=== PATIENT | male | born 1970 | race Caucasian/White ===

== ENCOUNTER 2016-07-26 16:34 | Inpatient (IN) | payer MEDICAID ==
[2016-07-26] MEDS: HYDROmorphONE/DILAUDID 1 MG/ML SYR IVP PRN (17:37)
[2016-07-26] MEDS ORDERED: ONDANSETRON DISINTEGRATING 4 MG TAB PO PRN (17:56)
[2016-07-26] MEDS ORDERED: ONDANSETRON 4 MG/2 ML VIAL IVP PRN (17:56)
[2016-07-26] MEDS ORDERED: NALOXONE HCL 0.4 MG/ML INJ IVP PRN (17:56)
[2016-07-26] MEDS: HYDROmorphONE/DILAUDID 6 MG/30 ML PCA IV PRN (18:00)
[2016-07-26] MEDS: NS 1,000 ML IV SCH (18:21)
[2016-07-26] MEDS: ERTAPENEM 1 GM in NS 100 ML IV SCH (18:22)
--- NOTE | 2016-07-26 18:49 | GHP ---
[f rep st] HISTORY AND PHYSICAL DATE OF ADMISSION: 07/26/2016 HISTORY OF PRESENT ILLNESS: The patient is a pleasant 45-year-old gentleman with history of stage I V metastatic rectal cancer, who presents from oncology clinic with rectal pain and fever. He was fe eling well until yesterday. His last chemotherapy was about 3 weeks ago. He developed pain and the n today he has had fever, chills. He said he has never felt pain like this before. The tissue arou nd his rectum and into his right medial buttock has become indurated and very tender. He has had fe josesito and he is diaphoretic. He has had no bloody ostomy drainage. He has had no blood coming out of his bottom. He has not put anything in his rectum. He does have a diverting ostomy. Patient had an admission here in the fall for alcohol withdrawal, but has been sober for a number of what sounds like weeks to months. REVIEW OF SYSTEMS: Complete 10-point review of systems conducted and negative except as noted in th e HPI. PAST MEDICAL HISTORY: 1. Alcohol abuse. Currently sober. 2. Stage IV colon cancer with metastatic disease and diverting ileostomy. 3. History of GI bleed. 4. BPH. 5. Neuropathy. 6. He has a history of liver embolization in October 2005, and November 2005, as well as port placement. FAMILY HISTORY: Mother has kidney disease. SOCIAL HISTORY: He lives with a roommate. He is originally from [facility]. He smokes ItsOn. Alcohol as in the HPI. ALLERGIES: No known drug allergies. HOME MEDICATIONS: 1. Morphine 15 b.i.d. 2. Oxycodone 4 times daily. 3. Protonix. 4. Tamsulosin. ALLERGIES: No known drug allergies. PHYSICAL EXAMINATION: VITAL SIGNS: Temp 36.6, blood pressure 112/78, pulse 105, breathing 20 times a minute, 96% on room air. GENERAL: Uncomfortable, diaphoretic, but no acute distress. HEENT: S clerae anicteric. Oropharynx clear. Mucous membranes are dry. NECK: Supple without lymphadenopat hy or JVD. LUNGS: Clear to auscultation bilaterally. HEART: S1, S2. Borderline tachycardic. AB DOMEN: Soft, nontender, nondistended. There is no rebound or guarding. There is mucus on the osto my. His medial right glute or buttock is indurated without fluctuance. There is no rectal discharg e, although when Dr. Busch examined him, some serosanguineous fluid left his anus. EXTREMITIES: He has no lower extremity edema. Calves are nontender. SKIN: Without rash. NEUROLOGIC: Nonfocal . LABORATORY DATA: White count 12.9 with a left shift. Hematocrit is 40, platelets are 130,000. Rec ent coags show an INR of 1.16. Sodium 128, potassium 3.0, chloride 92, bicarb 21, BUN 10, creatinin e 0.7. These are slightly greater than his baseline. Bilirubin is 2.5. AST 68, ALT 58, alkaline p hosphatase 182, CEA is elevated at 344. I have discussed the case with Drs. Jed Arora and Annette Busch. I reviewed and summarized previous hospital records in the HPI. ASSESSMENT/PLAN: This is a 45-year-old gentle with metastatic rectal cancer, here with likely perir ectal abscess. 1. Likely perirectal abscess. The patient will go to CAT scan and likely to surgery thereafter. H e has been started on ertapenem. 2. Sepsis. The patient has leukocytosis as source of infection and tachycardia. I will start him on aggressive IV fluid resuscitation. 3. Alcohol use. This appears to be in remission at this time. 4. Prophylaxis. Pharmacologic prophylaxis indicated, but I have written to start it on July 28. 5. Pain. 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 We will continue h is medications. They have been reconciled. 6. Diet. He is currently n.p.o. DISPOSITION: Inpatient status. /[id number]/MODL
--- NOTE | 2016-07-26 19:19 | GCON ---
[f rep st] CONSULTATION ONCOLOGY CONSULTATION DATE OF CONSULTATION: 07/26/2016 HISTORY OF PRESENT ILLNESS: The patient is a 45-year-old gentleman who is followed by my partner, Rosalee Grider. He was diagnosed with metastatic rectal carcinoma in March of 2015. He present ed with liver metastasis. He was treated initially with FOLFOX-Avastin with a good partial response. His treatment was consol idated with Yttrium-90 Theraspheres. This was followed with radiation to his primary rectal mass gi domenic with concurrent gemcitabine. He completed this treatment in November of 2015. More recently, the patient has been receiving treatment with FOLFIRI-bevacizumab. The patient has chronic pain around both buttocks. He has no known fistula. He takes MS Contin 30 mg every 8 hours for this pain. He presented to the clinic today with an acute worsening of his pain over the past 24 hours. He den ies any perirectal discharge. He denies any shaking chill or fever at home. He denies abdominal pa in. He was admitted from the clinic for further management. PAST MEDICAL HISTORY: Metastatic rectal carcinoma, as outlined above, otherwise unremarkable. PAST SURGICAL HISTORY: History of diverting colostomy. SOCIAL HISTORY: The patient is single. He lives locally. He is currently unemployed. He admits t o history of heavy alcohol use in the past. REVIEW OF SYSTEMS: As above. PHYSICAL EXAMINATION: GENERAL: The patient is in [id number]-vl-[id number] distress due to perirectal pain. HEENT: Pupils equal. Sclerae nonicteric. Conjunctivae normal. ABDOMEN: Soft, nontender, nondi stended. RECTAL: Reveals notable induration in the left buttock. There is a firmness in the mid m edial left buttock, which is tender, per the patient. The patient appears to have a small sinus tra ct in the inferior anal area from which serous fluid drains. EXTREMITIES: No swelling or edema. NEUROLOGIC: Patient alert and oriented. LABORATORY DATA: A CBC done in the office today reveals a white count of 12,900, hemoglobin 13.8, h ematocrit of 40.4, platelet count of 130,000, with an absolute neutrophil count of 11,310. IMPRESSION: 1. Metastatic rectal carcinoma. 2. Acute perirectal pain, suspect left gluteal abscess. 3. History of alcohol abuse. The patient is a 45-year-old gentleman, who was admitted with acute perirectal pain. On exam, he montoya s findings suggestive of a possible gluteal abscess. I have started him on Dilaudid 1 mg IV q.4 hours for pain control. He is in a significant amount of pain. I have discussed his case with General Surgery, (Dr. Jed Arora), as well as Dr. Clint armas of the hospitalist service. The patient will be placed on Invanz. I have ordered a CT abdomen and pelvis to further evaluate fo r abscess. If one is present, it will be drained surgically. A remote possibility would be progression of his known rectal cancer; however, the patient had a res taging CT scan done on July 05, which did not demonstrate any significant progression, so I think this is unlikely. I will notify my partner, Dr. Grider, of his admission. Dr. Grider is covering the weekend. The plan was discussed with nursing, the patient, and Dr. Putnam of the hospitalist service. Our service will continue to follow him during this hospital stay. Total time for today's visit was approximately 40 minutes. /[id number]/MODL
[2016-07-26] MEDS ORDERED: IOPAMIDOL (ISOVUE-300) 100 ML BTL IV ONE ×2 (19:59→20:09)
[2016-07-26] MEDS: morphINE SR 15 MG TAB PO SCH (22:45)
--- NOTE | 2016-07-26 23:40 | GCON ---
[f rep st] CONSULTATION DATE OF CONSULTATION: 07/26/2016 CHIEF COMPLAINT: Perianal and buttock pain. HISTORY OF PRESENT ILLNESS: This is a 45-year-old male with a history of metastatic rectal carcinom a followed outpatient by Oncology who presents here with perirectal pain and fever. He was feeling well until yesterday when he started to develop these symptoms. The pain developed initially which has progressed to fever and chills. The tissue around his rectum and his right medial buttock has b ecome indurated and extremely tender. He denies having drainage from this area. He has been seen i n the past, most recently in April, by my colleague, Dr. Roberson, where he underwent diverting colo stomy at that time for his cancer. PAST MEDICAL HISTORY: Alcohol abuse, stage IV rectal cancer, history of GI bleed, BPH, neuropathy, liver embolization in 2005 for metastatic lesions. SURGICAL HISTORY: Diverting end colostomy performed in April of this year. ALLERGIES: None. CURRENT MEDICATIONS: Morphine, oxycodone, Protonix, and tamsulosin. PHYSICAL EXAM: VITAL SIGNS: Temperature 36.6, blood pressure 115/73, heart rate 85, he is 96% on r oom air. GENERAL: He is alert and oriented, in mild distress. CV: He has a regular rate and rhyt hm. LUNGS: Clear. ABDOMEN: Soft. Ostomy beefy red with stool in appliance. Incision well heale d. RECTAL: Right buttock has tense induration. No peter drainage. No abscess appreciated. EXTRE MITIES: Warm. LABS: None. IMAGING: CT scan of his abdomen and pelvis shows fluid within the pelvis both intra and extra-abdom inally, tracking above and around the levators into that right buttock tissue. ASSESSMENT/PLAN: A 45-year-old male with intra and extra-abdominal abscess, clearly much more invol luly than a simple perirectal. I do agree with starting broad-spectrum IV antibiotics at this time a nd would keep the patient n.p.o., would obtain some baseline labs as well as hydrate. Will have a d iscussion as to how to properly treat this, as the patient may require some kind of celiotomy to in that intraabdominal portion versus interventionally placed drain. At any rate, will require, mor e than likely, some surgery but need to formulate a game plan prior to doing so, as the abscess is m uch more extensive than initially thought. Findings were discussed with the patient. We will plan to discuss and come up with operative plan as soon as possible. /[id number]/MODL
[2016-07-27] MEDS: NS 1,000 ML IV SCH ×3 (00:28→10:04)
[2016-07-27 05:15] LABS: ADD DIFF? YES; ADD MORPH? NO; ATYPICAL LYMPHOCYTE FLAG 0 (0-99); FRAGMENT RBC FLAG 20 (0-99); HEMATOCRIT 35.1 % (40.0-51.0); HEMOGLOBIN 12.1 g/dL (13.7-17.5); LIPEMIA HEMOLYSIS FLAG 90 (0-99); MEAN CELL HEMOGLOBIN 29.7 pg (27.9-34.1); MEAN CELL HEMOGLOBIN CONCENTR. 34.5 g/dL (32.4-36.7); MEAN PLATELET VOLUME 10.2 fL (8.7-11.7); PLATELET CLUMPS FLAG 10 (0-99); PLATELET COUNT 62 10^3/uL (150-400); RED BLOOD CELL COUNT 4.08 10^6/uL (4.40-6.38); RED CELL DISTRIBUTION WIDTH 18.2 % (11.5-15.2)
[2016-07-27 05:27] LABS: INR 1.74 (0.83-1.16); PROTIME(PATIENT) 20.4 SEC (12.0-15.0)
[2016-07-27 05:28] LABS: APTT 39.6 SEC (23.0-38.0)
[2016-07-27 05:33] LABS: ADD SCAN? NO; LEFT SHIFT FLG 270 (0-99)
[2016-07-27 05:39] LABS: CARBON DIOXIDE 23 mEq/l (22-31); CREATININE 0.5 mg/dL (0.7-1.3); GLOMERULAR FILTRATION RATE > 60; GLUCOSE 97 mg/dL (70-100); SODIUM 134 mEq/L (134-144)
[2016-07-27 05:40] LABS: POTASSIUM 3.2 mEq/L (3.5-5.2)
[2016-07-27 05:53] LABS: ANION GAP 13 mEq/L (8-16); CHLORIDE 98 mEq/L (97-110)
[2016-07-27 07:16] LABS: HYPERSEGMENTED NEUTROPHILS 1+; KERATOCYTES 1+; PLATELET ESTIMATE DECREASED (ADEQ); POLYCHROMASIA 1+
[2016-07-27] MEDS: PANTOPRAZOLE SODIUM 40 MG TAB PO SCH (08:49)
[2016-07-27] MEDS: morphINE SR 15 MG TAB PO SCH ×3 (08:49→21:42)
[2016-07-27] MEDS: ERTAPENEM 1 GM in NS 100 ML IV SCH (08:54)
[2016-07-27] MEDS: TAMSULOSIN HCL 0.4 MG CAP PO SCH (08:58)
[2016-07-27] MEDS ORDERED: DEXAMETHASONE 4 MG TAB PO SCH (09:00)
[2016-07-27] MEDS: HYDROmorphONE/DILAUDID 6 MG/30 ML PCA IV PRN ×2 (09:48→18:38)
--- NOTE | 2016-07-27 09:54 | HOSPPROG ---
Hospitalist Progress Note Assessment/Plan: 45 yo M w metastatic liver CA here w R perirectal abscess w possible perforation vs gas forming organisms perirectal abscess: on ertapenem needs operative vs IR drainage has been on angiogenesis inhibitor so resection w primary anastamosis has risk of breakdown d/w dr pantoja sepsis: septic physiology improving urinary retention: likely 2/2 anticholinergic effect of opiates banegas colon CA: metastatic last chemo [address] suggests he is responding to treatment alcoholism: sober X weeks- months per him follow proph: high risk goal is to start LMWH 07/28 Subjective: case d/w edgar melgoza and mariya. CT images reviewed/interpreted by nm- free air next on R side of rectum w thickened tissue. CT from 07/05 may have shown some extraluminal air in same space R of rectum Objective: Vital Signs Temp Pulse Resp BP Pulse Ox 37.1 C 80 15 109/71 94 07/27/16 08:00 07/27/16 08:00 07/27/16 08:00 07/27/16 08:00 07/27/16 08:00 Laboratory Results 07/27/16 04:35 07/27/16 04:35 07/26/16 07/27/16 07/28/16 05:59 05:59 05:59 Intake Total 1802.2 Output Total 550 Balance 1252.2 PT 20.4 SEC (12.0-15.0) H 07/27/16 04:35 INR 1.74 (0.83-1.16) H 07/27/16 04:35 - Physical Exam Constitutional: appears nourished, No no apparent distress Eyes: PERRL, anicteric sclera Ears, Nose, Mouth, Throat: moist mucous membranes, hearing normal Cardiovascular: regular rate and rhythym, no murmur, rub, or gallop Respiratory: no respiratory distress, no rales or rhonchi Gastrointestinal: normoactive bowel sounds, soft, non-tender abdomen, other ( deferring rectal exam at this time- will wait until surgeon present) Genitourinary: banegas in urethra, No no bladder fullness Skin: warm, normal color Musculoskeletal: full muscle strength, no muscle tenderness Neurologic: AAOx3 ICD10 Worksheet Patient Problems: Problems Problem Status Onset Abdominal pain Acute Acute hyperactive alcohol withdrawal delirium Acute Alcohol dependence Acute Alcohol withdrawal Acute Colorectal cancer Acute Colorectal cancer, stage IV Acute Hematochezia Acute
--- NOTE | 2016-07-27 10:05 | SOAPPROG ---
SOAP Progress Note Assessment/Plan: Assessment: 1. Perirectal abscess with gas formation secondary to perforation rectal cancer in situ. 2. Stage IV rectal cancer with liver mets since 03/2015 3. Urinary retention S: He has a metastatic rectal cancer and has been on FOLFIRI plus Avastin. He has buttock pain and a CT that reveals gas extending to the skin from a right perirectal abscess. He has been on dex 4 mg daily for asthnia. Currently he is in a lot of pain. He is on the schedule for surgery later today for fasciatomy and drainage. He has urinary retention. His last dose of chemo was on 07/15. He currently has a WBC of 9 and platelets of 60K. He is still a full code. He knows that he has incurable rectal cancer. Plan: surgery plus ertapenum. Culture. 07/27/16 10:00 07/27/16 10:06 07/27/16 10:08 07/27/16 10:09 Subjective: [place] is a 45 yo with metastatic rectal cancer here with right buttock pain. He has a large abscess. Objective: Vital Signs Temp Pulse Resp BP Pulse Ox 37.1 C 80 15 109/71 94 07/27/16 08:00 07/27/16 08:00 07/27/16 08:00 07/27/16 08:00 07/27/16 08:00 Laboratory Results 07/27/16 04:35 07/27/16 04:35 07/26/16 07/27/16 07/28/16 05:59 05:59 05:59 Intake Total 1802.2 Output Total 550 Balance 1252.2 PT 20.4 SEC (12.0-15.0) H 07/27/16 04:35 INR 1.74 (0.83-1.16) H 07/27/16 04:35 Alert and oriented Lungs clear CVS neg Abd: large bladder Ext: no edema. ICD10 Worksheet Patient Problems: Problems Problem Status Onset Abdominal pain Acute Acute hyperactive alcohol withdrawal delirium Acute Alcohol dependence Acute Alcohol withdrawal Acute Colorectal cancer Acute Colorectal cancer, stage IV Acute Hematochezia Acute
[2016-07-27] MEDS: HYDROmorphONE/DILAUDID 1 MG/ML SYR IVP PRN (10:36)
[2016-07-27] MEDS ORDERED: BUPIVACAINE/EPI 0.5% 30 ML SDV ONE (12:54)
[2016-07-27] MEDS ORDERED: MIDAZOLAM 2 MG/2 ML VIAL ONE (13:38)
[2016-07-27] MEDS ORDERED: fentaNYL 250 MCG/5 ML INJ ONE (13:50)
[2016-07-27] MEDS ORDERED: PROPOFOL/EMULSION 500 MG/50 ML BOTTLE IV ONE (13:53)
[2016-07-27] MEDS ORDERED: ONDANSETRON 4 MG/2 ML VIAL ONE (14:32)
[2016-07-27] MEDS ORDERED: ROCURONIUM 50 MG/5 ML VIAL ONE (14:32)
[2016-07-27] MEDS ORDERED: METOCLOPRAMIDE 10 MG/2 ML VIAL ONE (14:33)
[2016-07-27] MEDS ORDERED: GLYCOPYRROLATE 0.2 MG/1 ML VIAL ONE (14:33)
[2016-07-27] MEDS ORDERED: SUGAMMADEX SODIUM 200 MG/2 ML VIAL IVP ONE (14:35)
[2016-07-27] MEDS ORDERED: fentaNYL 100 MCG/2 ML INJ ONE (14:52)
--- NOTE | 2016-07-27 15:08 | SOAPPROG ---
SOAP Progress Note Assessment/Plan: Assessment: 45 MALE WITH COLOSTOMY FOR RECTAL CA, METASTATIC TO LIVER NOW WITH SEVERE PERIRECTAL PAIN AND CT WITH PERFORATION AND AIR IN SOFT TISSUES AFEBRILE/ SOME RECTAL DRAINAGE TOO PAINFUL FOR RECTAL EXAM RISKS AND OPTIONS FULLY DISCUSSED Plan:I & D IN OR 07/27/16 15:05 Objective: Vital Signs Temp Pulse Resp BP Pulse Ox 36.5 C 63 16 117/69 98 07/27/16 14:59 07/27/16 14:59 07/27/16 14:59 07/27/16 14:59 07/27/16 14:59 Laboratory Results 07/27/16 04:35 07/27/16 04:35 07/26/16 07/27/16 07/28/16 05:59 05:59 05:59 Intake Total 1802.2 800 Output Total 550 1560 Balance 1252.2 -760 PT 20.4 SEC (12.0-15.0) H 07/27/16 04:35 INR 1.74 (0.83-1.16) H 07/27/16 04:35 ICD10 Worksheet Patient Problems: Problems Problem Status Onset Abdominal pain Acute Acute hyperactive alcohol withdrawal delirium Acute Alcohol dependence Acute Alcohol withdrawal Acute Colorectal cancer Acute Colorectal cancer, stage IV Acute Hematochezia Acute
--- NOTE | 2016-07-27 15:15 | POSTOPPROG ---
Post Op Note Date of Operation: 07/27/16 Surgeon: Mathieu Wood Anesthesiologist: GERTRUDE Anesthesia: GET(General Endotracheal) Pre-op Diagnosis: PERFORATED RECTAL CANCER Post-op Diagnosis: SAME Indication: ABSCESS Procedure: EUA/ I&D PERIRECTAL ABSCESS AND DEBRIDEMENT Findings: COMOLETE NECROTIC RT LATERAL RECTAL WALL WITH ASSOCIATED PERIRECTAL ABSCESS Inf/Abcess present in the surg proc area at time of surgery?: Yes Depth: Organ Space EBL: Minimal Complications: 0 Drains: [place] Specimen(s): CULTURE
[2016-07-27] MEDS ORDERED: ONDANSETRON 4 MG/2 ML VIAL IVP PRN (15:17)
[2016-07-27] MEDS ORDERED: KETOROLAC 30 MG/1 ML SDV IVP ONE (15:17)
[2016-07-27] MEDS: D5W 1/2 NS W/ 20 KCl/L 1,000 ML IV SCH (16:40)
[2016-07-27] MEDS: KETOROLAC 15 MG/1 ML SDV IVP SCH ×2 (17:31→23:43)
[2016-07-28] MEDS: KETOROLAC 15 MG/1 ML SDV IVP SCH ×4 (04:50→23:49)
[2016-07-28 05:10] LABS: ADD DIFF? YES; ADD MORPH? NO; ATYPICAL LYMPHOCYTE FLAG 0 (0-99); FRAGMENT RBC FLAG 0 (0-99); HEMATOCRIT 29.8 % (40.0-51.0); LIPEMIA HEMOLYSIS FLAG 80 (0-99); MEAN CELL HEMOGLOBIN 29.7 pg (27.9-34.1); MEAN CELL HEMOGLOBIN CONCENTR. 33.6 g/dL (32.4-36.7); MEAN CELL VOLUME 88.4 fL (81.5-99.8); MEAN PLATELET VOLUME 9.4 fL (8.7-11.7); PLATELET CLUMPS FLAG 0 (0-99); PLATELET COUNT 57 10^3/uL (150-400); RED BLOOD CELL COUNT 3.37 10^6/uL (4.40-6.38); RED CELL DISTRIBUTION WIDTH 17.7 % (11.5-15.2)
[2016-07-28 05:25] LABS: ANION GAP 6 mEq/L (8-16); CALCIUM 7.5 mg/dL (8.5-10.4); CARBON DIOXIDE 28 mEq/l (22-31); CHLORIDE 105 mEq/L (97-110); CREATININE 0.5 mg/dL (0.7-1.3); GLOMERULAR FILTRATION RATE > 60; GLUCOSE 132 mg/dL (70-100); POTASSIUM 3.1 mEq/L (3.5-5.2); SODIUM 139 mEq/L (134-144)
[2016-07-28 05:31] LABS: ADD SCAN? NO; LEFT SHIFT FLG 290 (0-99)
[2016-07-28 07:44] LABS: PLATELET ESTIMATE DECREASED (ADEQ); POLYCHROMASIA 1+
--- NOTE | 2016-07-28 08:29 | SOAPPROG ---
SOAP Progress Note Assessment/Plan: Assessment: 1. Perirectal abscess with gas formation secondary to perforation rectal cancer. 2. Stage IV rectal cancer with liver mets since 03/2015 3. Urinary retention S: He has a metastatic rectal cancer and has been on FOLFIRI plus Avastin. He has buttock pain and a CT that reveals gas extending to the skin from a right perirectal abscess. He has been on dex 4 mg daily for asthenia. I will start to wean that down. He had an I&D. He has "complete breakdown of the right lateral wall. His pain is dramatically better. The hope now is that there is adequate drainage. The next steps are IV Abx and wound care. The chcf solution is difficult but could include an APR. He had urinary retention and has a banegas in place. He looks better today. His last dose of chemo was on 07/15. He currently has a WBC of 9 and platelets of 60K. He is still a full code. He knows that he has incurable rectal cancer. Plan: surgery plus ertapenum. Cultures pending 07/27/16 10:00 07/27/16 10:06 07/27/16 10:08 07/27/16 10:09 07/28/16 08:25 07/28/16 08:32 Subjective: [place] feels a lot better today after I&D. Pain is controlled. Temp is normal. Objective: Vital Signs Temp Pulse Resp BP Pulse Ox 36.4 C 52 L 15 106/71 96 07/27/16 20:00 07/28/16 06:09 07/28/16 06:09 07/28/16 06:09 07/28/16 06:09 Microbiology 07/27/16 14:22 Gram Stain - Final Buttock - Aspirate 07/27/16 14:22 Gram Stain - Final Buttock - Eswab Laboratory Results 07/28/16 04:55 07/28/16 04:55 07/27/16 07/28/16 07/29/16 05:59 05:59 05:59 Intake Total 1802.2 2308.1 Output Total 550 3210 Balance 1252.2 -901.9 PT 20.4 SEC (12.0-15.0) H 07/27/16 04:35 INR 1.74 (0.83-1.16) H 07/27/16 04:35 Wound looks OK. Alert Neck neg Lungs clear CVS neg Abd colostomy LUQ ext no DVT ICD10 Worksheet Patient Problems: Problems Problem Status Onset Abdominal pain Acute Acute hyperactive alcohol withdrawal delirium Acute Alcohol dependence Acute Alcohol withdrawal Acute Colorectal cancer Acute Colorectal cancer, stage IV Acute Hematochezia Acute
[2016-07-28] MEDS: HYDROmorphONE/DILAUDID 6 MG/30 ML PCA IV PRN ×2 (08:45→19:56)
[2016-07-28] MEDS: ERTAPENEM 1 GM in NS 100 ML IV SCH (08:47)
[2016-07-28] MEDS: morphINE SR 15 MG TAB PO SCH ×3 (08:47→21:08)
[2016-07-28] MEDS: TAMSULOSIN HCL 0.4 MG CAP PO SCH (08:47)
[2016-07-28] MEDS: DEXAMETHASONE 2 MG TAB PO SCH (08:47)
[2016-07-28] MEDS: PANTOPRAZOLE SODIUM 40 MG TAB PO SCH (08:47)
[2016-07-28] MEDS: ENOXAPARIN 40 MG/0.4 ML SYR SC SCH ×2 (08:48→08:51)
[2016-07-28] MEDS ORDERED: PROTOCOL POTASSIUM 1 DOSE MISC PRN (10:59)
--- NOTE | 2016-07-28 11:05 | HOSPPROG ---
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 pain improved but still requiring RECEPTIONIST/TELEPHONE OPERATOR. eating Objective: Vital Signs Temp Pulse Resp BP Pulse Ox 37.1 C 76 17 102/67 97 07/28/16 10:08 07/28/16 10:08 07/28/16 10:08 07/28/16 10:08 07/28/16 10:08 Microbiology 07/27/16 14:22 Gram Stain - Final Buttock - Aspirate 07/27/16 14:22 Gram Stain - Final Buttock - Eswab Laboratory Results 07/28/16 04:55 07/28/16 04:55 07/27/16 07/28/16 07/29/16 05:59 05:59 05:59 Intake Total 1802.2 2308.1 Output Total 550 3210 Balance 1252.2 -901.9 PT 20.4 SEC (12.0-15.0) H 07/27/16 04:35 INR 1.74 (0.83-1.16) H 07/27/16 04:35 - Physical Exam Constitutional: no apparent distress, appears nourished Eyes: PERRL, anicteric sclera Ears, Nose, Mouth, Throat: moist mucous membranes, hearing normal Cardiovascular: regular rate and rhythym, no murmur, rub, or gallop, No systolic murmur, No tachycardia Respiratory: no respiratory distress, no rales or rhonchi Gastrointestinal: normoactive bowel sounds, soft, non-tender abdomen Genitourinary: banegas in urethra Skin: warm, normal color Musculoskeletal: full muscle strength, no muscle tenderness Neurologic: AAOx3 ICD10 Worksheet Patient Problems: Problems Problem Status Onset Abdominal pain Acute Acute hyperactive alcohol withdrawal delirium Acute Alcohol dependence Acute Alcohol withdrawal Acute Colorectal cancer Acute Colorectal cancer, stage IV Acute Hematochezia Acute
[2016-07-28] MEDS: POLYETHYLENE GLYCOL 3350 17 GM PKT PO SCH (11:52)
[2016-07-28] MEDS ORDERED: POTASSIUM CL 10 MEQ TAB PO ONE ×2 (12:21→20:47)
--- NOTE | 2016-07-28 12:22 | SOAPPROG ---
SOAP Progress Note Assessment/Plan: Assessment: 45 MALE WITH COLOSTOMY FOR RECTAL CA, METASTATIC TO LIVER NOW WITH SEVERE PERIRECTAL PAIN AND CT WITH PERFORATION AND AIR IN SOFT TISSUES AFEBRILE/ SOME RECTAL DRAINAGE TOO PAINFUL FOR RECTAL EXAM RISKS AND OPTIONS FULLY DISCUSSED Plan:I & D IN OR 07/27/16 15:05 07/28/16 12:20 MUCH IMPROVED/ AFEBRILE/ MODERATE DRAINAGE/ MINIMAL PAIN/ WILL EVENTUALLY NEED APR Objective: Vital Signs Temp Pulse Resp BP Pulse Ox 37.1 C 59 L 17 114/72 94 07/28/16 11:56 07/28/16 11:56 07/28/16 11:56 07/28/16 11:56 07/28/16 11:56 Microbiology 07/27/16 14:22 Gram Stain - Final Buttock - Eswab 07/27/16 14:22 Gram Stain - Final Buttock - Aspirate Laboratory Results 07/28/16 04:55 07/28/16 04:55 07/27/16 07/28/16 07/29/16 05:59 05:59 05:59 Intake Total 1802.2 2308.1 Output Total 550 3210 Balance 1252.2 -901.9 PT 20.4 SEC (12.0-15.0) H 07/27/16 04:35 INR 1.74 (0.83-1.16) H 07/27/16 04:35 ICD10 Worksheet Patient Problems: Problems Problem Status Onset Abdominal pain Acute Acute hyperactive alcohol withdrawal delirium Acute Alcohol dependence Acute Alcohol withdrawal Acute Colorectal cancer Acute Colorectal cancer, stage IV Acute Hematochezia Acute
[2016-07-28] MEDS: D5W 1/2 NS W/ 20 KCl/L 1,000 ML IV SCH (15:59)
[2016-07-28 20:07] LABS: POTASSIUM 3.3 mEq/L (3.5-5.2)
[2016-07-29] MEDS: HYDROmorphONE/DILAUDID 6 MG/30 ML PCA IV PRN ×3 (04:04→18:30)
[2016-07-29] MEDS: KETOROLAC 15 MG/1 ML SDV IVP SCH ×4 (04:04→23:55)
[2016-07-29 04:11] LABS: ANION GAP 4 mEq/L (8-16); CALCIUM 7.5 mg/dL (8.5-10.4); CARBON DIOXIDE 27 mEq/l (22-31); CHLORIDE 108 mEq/L (97-110); CREATININE 0.5 mg/dL (0.7-1.3); GLOMERULAR FILTRATION RATE > 60; GLUCOSE 129 mg/dL (70-100); POTASSIUM 3.6 mEq/L (3.5-5.2); SODIUM 139 mEq/L (134-144)
[2016-07-29 04:19] LABS: % IMMATURE GRANULYOCYTES 1.6 % (0.0-1.1); ABSOLUTE IMMATURE GRANULOCYTES 0.06 10^3/uL (0.00-0.10); ADD DIFF? NO; ADD MORPH? NO; ADD SCAN? YES; ATYPICAL LYMPHOCYTE FLAG 0 (0-99); FRAGMENT RBC FLAG 0 (0-99); HEMATOCRIT 30.4 % (40.0-51.0); LIPEMIA HEMOLYSIS FLAG 80 (0-99); MEAN CELL HEMOGLOBIN 29.2 pg (27.9-34.1); MEAN CELL HEMOGLOBIN CONCENTR. 32.9 g/dL (32.4-36.7); MEAN CELL VOLUME 88.9 fL (81.5-99.8); MEAN PLATELET VOLUME 10.6 fL (8.7-11.7); PLATELET CLUMPS FLAG 0 (0-99); PLATELET COUNT 81 10^3/uL (150-400); RED BLOOD CELL COUNT 3.42 10^6/uL (4.40-6.38); RED CELL DISTRIBUTION WIDTH 17.7 % (11.5-15.2)
[2016-07-29 04:20] LABS: LEFT SHIFT FLG 110 (0-99)
[2016-07-29 05:58] LABS: SCAN NEGATIVE
[2016-07-29] MEDS ORDERED: POTASSIUM CL 10 MEQ TAB PO ONE (07:35)
[2016-07-29] MEDS: TAMSULOSIN HCL 0.4 MG CAP PO SCH (08:53)
[2016-07-29] MEDS: DEXAMETHASONE 2 MG TAB PO SCH (08:53)
[2016-07-29] MEDS: morphINE SR 15 MG TAB PO SCH ×3 (08:53→22:01)
[2016-07-29] MEDS: ERTAPENEM 1 GM in NS 100 ML IV SCH (08:54)
[2016-07-29] MEDS: ENOXAPARIN 40 MG/0.4 ML SYR SC SCH (08:54)
[2016-07-29] MEDS: PANTOPRAZOLE SODIUM 40 MG TAB PO SCH (08:54)
[2016-07-29] MEDS: POLYETHYLENE GLYCOL 3350 17 GM PKT PO SCH (08:58)
--- NOTE | 2016-07-29 10:40 | SOAPPROG ---
SOAP Progress Note Assessment/Plan: Assessment: 1.) Polymicrobial abscess - Perirectal now S/P drainage and remaining afebrile. 2.) Rectal Carcinoma, S/P first line chemotherapy, and now mildly pancytopenic from most recent tx. 3.) Pain management issues- on SCHEDULING CLERK + breakthrough regimen. Plan: 1.) Continue IV antibiotic regimen 2.) Continue analgesics 3.) Follow labs + VS + sx. 07/30/16 11:04 Subjective: Abscess area pain is markedly improved. No new active sx. Decent appetite Objective: Pt. in NAD, looks slightly anxious HEENT- anicteric, no oral lesion Neck- supple Chest- Mediport R chest accessed/NT; lungs clear CVS- RSR, no extra HS ABD- soft, NT, no HSM or ascites, BS+ EXT- no edema, skin intact Vital Signs Temp Pulse Resp BP Pulse Ox 36.7 C 48 L 16 129/82 H 96 07/29/16 10:23 07/29/16 10:23 07/29/16 10:23 07/29/16 10:23 07/29/16 10:23 Microbiology 07/27/16 14:22 Gram Stain - Final Buttock - Eswab 07/27/16 14:22 Gram Stain - Final Buttock - Aspirate Laboratory Results 07/29/16 03:30 07/29/16 03:30 07/28/16 07/29/16 07/30/16 05:59 05:59 05:59 Intake Total 2308.1 2108 Output Total 3210 1050 Balance -901.9 1058 PT 20.4 SEC (12.0-15.0) H 07/27/16 04:35 INR 1.74 (0.83-1.16) H 07/27/16 04:35 ICD10 Worksheet Patient Problems: Problems Problem Status Onset Abdominal pain Acute Acute hyperactive alcohol withdrawal delirium Acute Alcohol dependence Acute Alcohol withdrawal Acute Colorectal cancer Acute Colorectal cancer, stage IV Acute Hematochezia Acute
--- NOTE | 2016-07-29 11:28 | SOAPPROG ---
SOAP Progress Note Assessment/Plan: Assessment: 45yo male s/p I&D of perirectal abscess (Dr Wood), debridement, history of metastatic rectal cancer. History of diverting ostomy. Tolerating regular diet, pain controlled on SATELLITE MANAGER. PE awake alert exam wound with serosag discharge, shazia in place, no surrounding erythema or fluctuance. Plan: daily irrigation of wound with red tip catheter and saline. dressing changes as needed will likely need APR surgery at later day. saw pt with Dr Wood. 07/29/16 11:24 07/29/16 11:57 07/29/16 12:00 Objective: Vital Signs Temp Pulse Resp BP Pulse Ox 36.7 C 48 L 16 129/82 H 96 07/29/16 10:23 07/29/16 10:23 07/29/16 10:23 07/29/16 10:23 07/29/16 10:23 Microbiology 07/27/16 14:22 Gram Stain - Final Buttock - Aspirate 07/27/16 14:22 Gram Stain - Final Buttock - Eswab Laboratory Results 07/29/16 03:30 07/29/16 03:30 07/28/16 07/29/16 07/30/16 05:59 05:59 05:59 Intake Total 2308.1 2108 Output Total 3210 1050 Balance -901.9 1058 PT 20.4 SEC (12.0-15.0) H 07/27/16 04:35 INR 1.74 (0.83-1.16) H 07/27/16 04:35 ICD10 Worksheet Patient Problems: Problems Problem Status Onset Abdominal pain Acute Acute hyperactive alcohol withdrawal delirium Acute Alcohol dependence Acute Alcohol withdrawal Acute Colorectal cancer Acute Colorectal cancer, stage IV Acute Hematochezia Acute
--- NOTE | 2016-07-29 12:26 | SOAPPROG ---
SOAP Progress Note Assessment/Plan: Assessment: 45 MALE WITH COLOSTOMY FOR RECTAL CA, METASTATIC TO LIVER NOW WITH SEVERE PERIRECTAL PAIN AND CT WITH PERFORATION AND AIR IN SOFT TISSUES AFEBRILE/ SOME RECTAL DRAINAGE TOO PAINFUL FOR RECTAL EXAM RISKS AND OPTIONS FULLY DISCUSSED Plan:I & D IN OR 07/27/16 15:05 07/28/16 12:20 MUCH IMPROVED/ AFEBRILE/ MODERATE DRAINAGE/ MINIMAL PAIN/ WILL EVENTUALLY NEED APR 07/29/16 12:24 WOUND OKAY/AFEBRILE/ REASONABLY COMFORTABLE / WILL NEED APR WHEN INFECTION UNDER CONTROL Objective: Vital Signs Temp Pulse Resp BP Pulse Ox 36.7 C 48 L 16 129/82 H 96 07/29/16 10:23 07/29/16 10:23 07/29/16 10:23 07/29/16 10:23 07/29/16 10:23 Microbiology 07/27/16 14:22 Gram Stain - Final Buttock - Aspirate 07/27/16 14:22 Gram Stain - Final Buttock - Eswab Laboratory Results 07/29/16 03:30 07/29/16 03:30 07/28/16 07/29/16 07/30/16 05:59 05:59 05:59 Intake Total 2308.1 2108 Output Total 3210 1050 Balance -901.9 1058 PT 20.4 SEC (12.0-15.0) H 07/27/16 04:35 INR 1.74 (0.83-1.16) H 07/27/16 04:35 ICD10 Worksheet Patient Problems: Problems Problem Status Onset Abdominal pain Acute Acute hyperactive alcohol withdrawal delirium Acute Alcohol dependence Acute Alcohol withdrawal Acute Colorectal cancer Acute Colorectal cancer, stage IV Acute Hematochezia Acute
--- NOTE | 2016-07-29 12:48 | HOSPPROG ---
Hospitalist Progress Note Assessment/Plan: 45 yo M w metastatic liver CA here w R perirectal abscess w possible perforation vs gas forming organisms perirectal abscess: on ertapenem day 4 continue given polymicrobial culture s/p operative drainage w discovery of necrotic R wall of rectum blood cx neg sepsis: septic physiology resolved urinary retention: likely 2/2 anticholinergic effect of opiates baneg[place] trial of dc in 1-2 days consider dc 07/30 buut suspect will fail given known bph and high doses pain meds hypokalemia: start protocol eating thrombocytopenia: inproving follow no active bleeding 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 wound cx growing e coli, polymicrobial. case d/w dr henao Objective: Vital Signs Temp Pulse Resp BP Pulse Ox 36.6 C 45 L 18 117/81 H 99 07/29/16 12:25 07/29/16 12:25 07/29/16 12:25 07/29/16 12:25 07/29/16 12:25 Microbiology 07/27/16 14:22 Gram Stain - Final Buttock - Aspirate 07/27/16 14:22 Gram Stain - Final Buttock - Eswab Laboratory Results 07/29/16 03:30 07/29/16 03:30 07/28/16 07/29/16 07/30/16 05:59 05:59 05:59 Intake Total 2308.1 2108 Output Total 3210 1050 Balance -901.9 1058 PT 20.4 SEC (12.0-15.0) H 07/27/16 04:35 INR 1.74 (0.83-1.16) H 07/27/16 04:35 - Physical Exam Constitutional: no apparent distress, appears nourished, other (looks better) Eyes: PERRL, anicteric sclera Ears, Nose, Mouth, Throat: moist mucous membranes, hearing normal Cardiovascular: regular rate and rhythym, no murmur, rub, or gallop Respiratory: no respiratory distress, no rales or rhonchi, clear to auscultation Gastrointestinal: normoactive bowel sounds, soft, non-tender abdomen, No guarding, No rebound Genitourinary: no bladder fullness, [place] in urethra Skin: warm, normal color Musculoskeletal: full muscle strength, no muscle tenderness Neurologic: AAOx3, sensation intact bilaterally ICD10 Worksheet Patient Problems: Problems Problem Status Onset Abdominal pain Acute Acute hyperactive alcohol withdrawal delirium Acute Alcohol dependence Acute Alcohol withdrawal Acute Colorectal cancer Acute Colorectal cancer, stage IV Acute Hematochezia Acute
[2016-07-29] MEDS: NS 1,000 ML IV SCH (15:46)
[2016-07-29 18:50] LABS: POTASSIUM 4.1 mEq/L (3.5-5.2)
[2016-07-30] MEDS: HYDROmorphONE/DILAUDID 6 MG/30 ML PCA IV PRN ×2 (03:37→09:02)
[2016-07-30] MEDS: NS 1,000 ML IV SCH (03:37)
[2016-07-30] MEDS: KETOROLAC 15 MG/1 ML SDV IVP SCH ×3 (05:50→18:03)
[2016-07-30 06:08] LABS: ABSOLUTE NRBC COUNT 0.02 10^3/uL (0-0.01); ADD DIFF? YES; ADD MORPH? NO; ATYPICAL LYMPHOCYTE FLAG 60 (0-99); FRAGMENT RBC FLAG 0 (0-99); HEMATOCRIT 31.2 % (40.0-51.0); HEMOGLOBIN 9.9 g/dL (13.7-17.5); LIPEMIA HEMOLYSIS FLAG 80 (0-99); MEAN CELL HEMOGLOBIN 28.7 pg (27.9-34.1); MEAN CELL HEMOGLOBIN CONCENTR. 31.7 g/dL (32.4-36.7); MEAN CELL VOLUME 90.4 fL (81.5-99.8); MEAN PLATELET VOLUME 10.2 fL (8.7-11.7); NRBC-AUTO% 0.6 % (0.0-0.2); PLATELET CLUMPS FLAG 20 (0-99); PLATELET COUNT 75 10^3/uL (150-400); RED BLOOD CELL COUNT 3.45 10^6/uL (4.40-6.38); RED CELL DISTRIBUTION WIDTH 17.5 % (11.5-15.2)
[2016-07-30 06:16] LABS: ADD SCAN? NO; LEFT SHIFT FLG 150 (0-99)
[2016-07-30 06:19] LABS: ANION GAP 4 mEq/L (8-16); CALCIUM 7.7 mg/dL (8.5-10.4); CARBON DIOXIDE 27 mEq/l (22-31); CHLORIDE 109 mEq/L (97-110); CREATININE 0.5 mg/dL (0.7-1.3); GLOMERULAR FILTRATION RATE > 60; GLUCOSE 93 mg/dL (70-100); POTASSIUM 3.7 mEq/L (3.5-5.2); SODIUM 140 mEq/L (134-144)
[2016-07-30 06:38] LABS: HYPOCHROMIA 1+; PLATELET ESTIMATE DECREASED (ADEQ)
[2016-07-30] MEDS: ERTAPENEM 1 GM in NS 100 ML IV SCH (08:11)
[2016-07-30] MEDS: ENOXAPARIN 40 MG/0.4 ML SYR SC SCH (08:11)
[2016-07-30] MEDS: TAMSULOSIN HCL 0.4 MG CAP PO SCH (08:12)
[2016-07-30] MEDS: POLYETHYLENE GLYCOL 3350 17 GM PKT PO SCH (08:12)
[2016-07-30] MEDS: DEXAMETHASONE 2 MG TAB PO SCH (08:13)
[2016-07-30] MEDS: morphINE SR 15 MG TAB PO SCH ×3 (08:13→22:07)
[2016-07-30] MEDS: PANTOPRAZOLE SODIUM 40 MG TAB PO SCH (08:13)
--- NOTE | 2016-07-30 10:09 | HOSPPROG ---
Hospitalist Progress Note Assessment/Plan: 45 yo M w metastatic liver CA here w R perirectal abscess w possible perforation vs gas forming organisms perirectal abscess: on ertapenem day 5- culture growing muro sens e coli but this is by nature a polymicrobial infection s/p operative drainage w discovery of necrotic R wall of rectum blood cx neg sepsis: septic physiology resolved urinary retention: likely 2/2 anticholinergic effect of opiates [place] trial of dc in 1-2 days consider dc 07/30 buut suspect will fail given known bph and high doses pain meds hypokalemia: start protocol eating thrombocytopenia: inproving follow no active bleeding 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 still requiring ACADEMIC AFFAIRS VICE PRESIDENT Objective: Vital Signs Temp Pulse Resp BP Pulse Ox 36.4 C 42 L 18 133/91 H 94 07/30/16 08:00 07/30/16 08:00 07/30/16 08:00 07/30/16 08:00 07/30/16 08:00 Microbiology 07/27/16 14:22 Gram Stain - Final Buttock - Aspirate 07/27/16 14:22 Gram Stain - Final Buttock - Eswab Laboratory Results 07/30/16 05:45 07/30/16 05:45 07/29/16 07/30/16 07/31/16 05:59 05:59 05:59 Intake Total 2108 3099 Output Total 1050 790 Balance 1058 2309 PT 20.4 SEC (12.0-15.0) H 07/27/16 04:35 INR 1.74 (0.83-1.16) H 07/27/16 04:35 - Physical Exam Constitutional: no apparent distress, appears nourished Eyes: PERRL, anicteric sclera Ears, Nose, Mouth, Throat: moist mucous membranes, hearing normal Cardiovascular: regular rate and rhythym, no murmur, rub, or gallop Respiratory: no respiratory distress, no rales or rhonchi Gastrointestinal: normoactive bowel sounds, soft, non-tender abdomen, No guarding, No rebound, No distension Genitourinary: no bladder fullness, [place] in urethra Skin: warm Musculoskeletal: full muscle strength, no muscle tenderness Neurologic: AAOx3, sensation intact bilaterally Psychiatric: interacting appropriately ICD10 Worksheet Patient Problems: Problems Problem Status Onset Abdominal pain Acute Acute hyperactive alcohol withdrawal delirium Acute Alcohol dependence Acute Alcohol withdrawal Acute Colorectal cancer Acute Colorectal cancer, stage IV Acute Hematochezia Acute
--- NOTE | 2016-07-30 11:18 | SOAPPROG ---
SOAP Progress Note Assessment/Plan: Assessment: 1.) Polymicrobial abscess - Perirectal now S/P drainage and remaining afebrile. 2.) Rectal Carcinoma, S/P first line chemotherapy, and now mildly pancytopenic from most recent tx. 3.) Pain management issues- on LINOTYPE WORKER + breakthrough regimen. Plan: 1.) Continue IV antibiotic regimen 2.) Continue analgesics 3.) Follow labs + VS + sx. 4.) No need for transfusion support now, and expect myelosuppression to improve. 07/30/16 11:04 07/30/16 11:17 Subjective: Feels somewhat better, no new sx. and with adequate pain control Objective: VSS, afebrile HEENT- anicteric, no oral lesions, somewhat pale Neck- supple Chest- clear Mediport accessed/NT CVS- RSR, no extra HS ABD- BS+, soft, NT, Colostomy in LLQ functioning well. EXT- no edema Labs as noted here: PLT 75 K. Vital Signs Temp Pulse Resp BP Pulse Ox 36.6 C 47 L 18 121/84 H 94 07/30/16 10:05 07/30/16 10:05 07/30/16 10:05 07/30/16 10:05 07/30/16 10:05 Microbiology 07/27/16 14:22 Gram Stain - Final Buttock - Aspirate 07/27/16 14:22 Gram Stain - Final Buttock - Eswab Laboratory Results 07/30/16 05:45 07/30/16 05:45 07/29/16 07/30/16 07/31/16 05:59 05:59 05:59 Intake Total 2108 3099 Output Total 1050 790 Balance 1058 2309 PT 20.4 SEC (12.0-15.0) H 07/27/16 04:35 INR 1.74 (0.83-1.16) H 07/27/16 04:35 ICD10 Worksheet Patient Problems: Problems Problem Status Onset Abdominal pain Acute Acute hyperactive alcohol withdrawal delirium Acute Alcohol dependence Acute Alcohol withdrawal Acute Colorectal cancer Acute Colorectal cancer, stage IV Acute Hematochezia Acute
[2016-07-30] MEDS ORDERED: POTASSIUM CL 10 MEQ TAB PO ONE (11:57)
[2016-07-30] MEDS: OXYCODONE/APAP 5/325 TAB PO PRN ×3 (12:19→20:23)
--- NOTE | 2016-07-30 13:41 | SOAPPROG ---
SOAP Progress Note Assessment/Plan: Assessment: 45 year old male s/p eua and I&D perirectal abscess and debridement; history of metastatic rectal cancer, diverting ostomy Continue routine wound care. APR probably as outpatient once well-healed. Pain well controlled. Tolerating regular diet. gen:awake, alert, nad heent: mmm chest: cta bilaterally cor: rrr abd: non-distended, non-tender, +BS; + colostomy bag ext: no edema 07/30/16 17:41 Objective: Vital Signs Temp Pulse Resp BP Pulse Ox 36.7 C 50 L 18 118/81 H 93 07/30/16 12:00 07/30/16 12:00 07/30/16 12:00 07/30/16 12:00 07/30/16 12:00 Microbiology 07/27/16 14:22 Gram Stain - Final Buttock - Aspirate 07/27/16 14:22 Gram Stain - Final Buttock - Eswab Laboratory Results 07/30/16 05:45 07/30/16 05:45 07/29/16 07/30/16 07/31/16 05:59 05:59 05:59 Intake Total 2108 3099 Output Total 1050 790 Balance 1058 2309 PT 20.4 SEC (12.0-15.0) H 07/27/16 04:35 INR 1.74 (0.83-1.16) H 07/27/16 04:35 ICD10 Worksheet Patient Problems: Problems Problem Status Onset Abdominal pain Acute Acute hyperactive alcohol withdrawal delirium Acute Alcohol dependence Acute Alcohol withdrawal Acute Colorectal cancer Acute Colorectal cancer, stage IV Acute Hematochezia Acute
[2016-07-30] MEDS: HYDROmorphONE/DILAUDID 1 MG/ML SYR IVP PRN ×2 (15:14→18:18)
[2016-07-30 18:30] LABS: POTASSIUM 4.1 mEq/L (3.5-5.2)
[2016-07-31] MEDS: KETOROLAC 15 MG/1 ML SDV IVP SCH ×4 (00:11→17:15)
[2016-07-31] MEDS: OXYCODONE/APAP 5/325 TAB PO PRN ×5 (00:11→18:38)
[2016-07-31] MEDS: HYDROmorphONE/DILAUDID 1 MG/ML SYR IVP PRN ×5 (04:25→21:50)
[2016-07-31 05:15] LABS: ABSOLUTE NRBC COUNT 0.04 10^3/uL (0-0.01); ADD DIFF? YES; ADD MORPH? NO; ATYPICAL LYMPHOCYTE FLAG 70 (0-99); FRAGMENT RBC FLAG 0 (0-99); HEMATOCRIT 31.2 % (40.0-51.0); HEMOGLOBIN 10.2 g/dL (13.7-17.5); LIPEMIA HEMOLYSIS FLAG 80 (0-99); MEAN CELL HEMOGLOBIN 29.2 pg (27.9-34.1); MEAN CELL HEMOGLOBIN CONCENTR. 32.7 g/dL (32.4-36.7); MEAN CELL VOLUME 89.4 fL (81.5-99.8); MEAN PLATELET VOLUME 11.4 fL (8.7-11.7); NRBC-AUTO% 0.8 % (0.0-0.2); PLATELET CLUMPS FLAG 0 (0-99); PLATELET COUNT 96 10^3/uL (150-400); RED BLOOD CELL COUNT 3.49 10^6/uL (4.40-6.38); RED CELL DISTRIBUTION WIDTH 17.2 % (11.5-15.2)
[2016-07-31 05:19] LABS: ADD SCAN? NO; LEFT SHIFT FLG 180 (0-99)
[2016-07-31 05:28] LABS: ANION GAP 5 mEq/L (8-16); CALCIUM 7.8 mg/dL (8.5-10.4); CARBON DIOXIDE 25 mEq/l (22-31); CHLORIDE 106 mEq/L (97-110); CREATININE 0.5 mg/dL (0.7-1.3); GLOMERULAR FILTRATION RATE > 60; GLUCOSE 84 mg/dL (70-100); POTASSIUM 3.7 mEq/L (3.5-5.2); SODIUM 136 mEq/L (134-144)
[2016-07-31 05:46] LABS: HYPOCHROMIA 1+; PLATELET ESTIMATE DECREASED (ADEQ)
[2016-07-31] MEDS ORDERED: POTASSIUM CL 10 MEQ TAB PO ONE (08:17)
[2016-07-31] MEDS: morphINE SR 15 MG TAB PO SCH (09:15)
[2016-07-31] MEDS: ENOXAPARIN 40 MG/0.4 ML SYR SC SCH (09:15)
[2016-07-31] MEDS: TAMSULOSIN HCL 0.4 MG CAP PO SCH (09:15)
[2016-07-31] MEDS: PANTOPRAZOLE SODIUM 40 MG TAB PO SCH (09:15)
[2016-07-31] MEDS: ERTAPENEM 1 GM in NS 100 ML IV SCH (09:16)
[2016-07-31] MEDS: POLYETHYLENE GLYCOL 3350 17 GM PKT PO SCH (09:16)
--- NOTE | 2016-07-31 10:10 | HOSPPROG ---
Hospitalist Progress Note Assessment/Plan: #Rectal abscess: s/p I/D by Dr. Wood 07/27 -IV Ertapenem -pain controlled on home MS Contin, oxycodone #Hypokalemia: repleted #Rectal carcinoma: s/p first-line chemotherapy Objective: Vital Signs Temp Pulse Resp BP Pulse Ox 36.6 C 47 L 16 135/86 H 96 07/31/16 08:00 07/31/16 08:00 07/31/16 08:00 07/31/16 08:00 07/31/16 08:00 Microbiology 07/27/16 14:22 Gram Stain - Final Buttock - Aspirate 07/27/16 14:22 Gram Stain - Final Buttock - Eswab Laboratory Results 07/31/16 05:00 07/31/16 05:00 07/30/16 07/31/16 08/01/16 05:59 05:59 05:59 Intake Total 3099 2250 Output Total 790 925 Balance 2309 1325 PT 20.4 SEC (12.0-15.0) H 07/27/16 04:35 INR 1.74 (0.83-1.16) H 07/27/16 04:35 ICD10 Worksheet Patient Problems: Problems Problem Status Onset Abdominal pain Acute Alcohol dependence Acute Hematochezia Acute Acute hyperactive alcohol withdrawal delirium Acute Colorectal cancer Acute Alcohol withdrawal Acute Colorectal cancer, stage IV Acute
[2016-07-31] MEDS ORDERED: HYDROmorphONE/DILAUDID 1 MG/ML SYR IVP ONE (11:06)
--- NOTE | 2016-07-31 11:20 | HOSPPROG ---
Hospitalist Progress Note Assessment/Plan: #Acute on chronic rectal pain: due to abscess. Pain worse with moving. Baseline pain at home 2-3 -in last 24hrs has used 120mg Oxycodone (morphine equivalent 180mg/24hrs). Increase MS Contin to 30mg TID #E coli rectal abscess: s/p I/D by Dr. Wood 07/27 -change to PO Augmentin tomorrow -pain controlled on home MS Contin, oxycodone #Hypokalemia: repleted #Rectal carcinoma: s/p first-line chemotherapy #Diet: regular #DVT ppx: SCDs #Disp: DC once improved from surgical standpoint and on good pain regimen Subjective: pain in rectum 5-6 this morning, more after moving Objective: Vital Signs Temp Pulse Resp BP Pulse Ox 36.6 C 47 L 16 135/86 H 96 07/31/16 08:00 07/31/16 08:00 07/31/16 08:00 07/31/16 08:00 07/31/16 08:00 Microbiology 07/27/16 14:22 Gram Stain - Final Buttock - Aspirate 07/27/16 14:22 Gram Stain - Final Buttock - Eswab Laboratory Results 07/31/16 05:00 07/31/16 05:00 07/30/16 07/31/16 08/01/16 05:59 05:59 05:59 Intake Total 3099 2250 Output Total 790 925 Balance 2309 1325 PT 20.4 SEC (12.0-15.0) H 07/27/16 04:35 INR 1.74 (0.83-1.16) H 07/27/16 04:35 - Physical Exam Constitutional: other (mild distress due to pain) Eyes: PERRL Ears, Nose, Mouth, Throat: moist mucous membranes Cardiovascular: regular rate and rhythym Respiratory: no respiratory distress Gastrointestinal: normoactive bowel sounds, soft, non-tender abdomen, other Genitourinary: other (rectum with packing. Serosanginous drainage, small purulence) Skin: warm Musculoskeletal: full muscle strength Neurologic: AAOx3 Psychiatric: interacting appropriately ICD10 Worksheet Patient Problems: Problems Problem Status Onset Abdominal pain Acute Acute hyperactive alcohol withdrawal delirium Acute Alcohol dependence Acute Alcohol withdrawal Acute Colorectal cancer Acute Colorectal cancer, stage IV Acute Hematochezia Acute
--- NOTE | 2016-07-31 11:35 | SOAPPROG ---
SOAP Progress Note Assessment/Plan: Assessment: 45yo male s/p I&D of perirectal abscess (Dr Wood), debridement, history of metastatic rectal cancer. History of diverting ostomy. Tolerating regular diet, had significant pain earlier this morning possibly secondary to decreased dilaudid use. PE awake alert exam wound with serosag discharge, shazia in place, no surrounding erythema or fluctuance. Plan: daily irrigation of wound with red tip catheter and saline. dressing changes as needed will likely need APR surgery at later day. saw pt with Dr Wood. 07/29/16 11:24 07/29/16 11:57 07/29/16 12:00 07/31/16 11:34 Objective: Vital Signs Temp Pulse Resp BP Pulse Ox 36.6 C 47 L 16 135/86 H 96 07/31/16 08:00 07/31/16 08:00 07/31/16 08:00 07/31/16 08:00 07/31/16 08:00 Microbiology 07/27/16 14:22 Gram Stain - Final Buttock - Aspirate 07/27/16 14:22 Gram Stain - Final Buttock - Eswab Laboratory Results 07/31/16 05:00 07/31/16 05:00 07/30/16 07/31/16 08/01/16 05:59 05:59 05:59 Intake Total 3099 2250 Output Total 790 925 Balance 2309 1325 PT 20.4 SEC (12.0-15.0) H 07/27/16 04:35 INR 1.74 (0.83-1.16) H 07/27/16 04:35 ICD10 Worksheet Patient Problems: Problems Problem Status Onset Abdominal pain Acute Acute hyperactive alcohol withdrawal delirium Acute Alcohol dependence Acute Alcohol withdrawal Acute Colorectal cancer Acute Colorectal cancer, stage IV Acute Hematochezia Acute
[2016-07-31] MEDS ORDERED: AMOXICILLIN/CLAVULANATE POT 875/125 MG TAB PO SCH (12:00)
--- NOTE | 2016-07-31 12:04 | SOAPPROG ---
SOAP Progress Note Assessment/Plan: Assessment: 1.) E.coli abscess - Perirectal now S/P drainage and remaining afebrile. 2.) Rectal Carcinoma, S/P first line chemotherapy, and now mildly pancytopenic from most recent tx. 3.) Pain management issues- on POLE PEELER + breakthrough regimen. 4.) Tx related myelosuppression- stable Plan: 1.) Change from IV Ertapenem today to Augmentin 08/01 and observe for adequacy of this antibiotic strategy. D/W Dr. Bosch this AM. 2.) Continue analgesics. Increase in long acting narcotic today and re-assess for sx. control. 3.) Follow labs + VS + sx. 4.) No need for transfusion support now, and expect myelosuppression to improve. 07/31/16 12:04 Subjective: Still with pelvic/ gabriela-rectal pain, but tolerable if he remains in one position in hospital bed. No fever/chills/rigors Objective: Afebrile, VSS as noted here HEENT- anicteric, no oral lesions, Neck- supple Mediport- accessed/NT Chest- clear CVS- RSR, No extra HS ABD- soft, NT, BS+ perirectal region not examined EXT- no edema, skin intact Cx- both show E. coli with similar sensitivies- Vital Signs Temp Pulse Resp BP Pulse Ox 36.6 C 47 L 16 135/86 H 96 07/31/16 08:00 07/31/16 08:00 07/31/16 08:00 07/31/16 08:00 07/31/16 08:00 Microbiology 07/27/16 14:22 Gram Stain - Final Buttock - Aspirate 07/27/16 14:22 Gram Stain - Final Buttock - Eswab Laboratory Results 07/31/16 05:00 07/31/16 05:00 07/30/16 07/31/16 08/01/16 05:59 05:59 05:59 Intake Total 3099 2250 Output Total 790 925 Balance 2309 1325 PT 20.4 SEC (12.0-15.0) H 07/27/16 04:35 INR 1.74 (0.83-1.16) H 07/27/16 04:35 ICD10 Worksheet Patient Problems: Problems Problem Status Onset Abdominal pain Acute Acute hyperactive alcohol withdrawal delirium Acute Alcohol dependence Acute Alcohol withdrawal Acute Colorectal cancer Acute Colorectal cancer, stage IV Acute Hematochezia Acute
[2016-07-31] MEDS: morphINE SR 30 MG TAB PO SCH ×2 (15:55→21:46)
--- NOTE | 2016-07-31 19:52 | CPEKG ---
Heart Rate: 68 RR Interval: 882 P-R Interval: 144 QRSD Interval: 98 QT Interval: 416 QTC Interval: 443 P [place]: 28 QRS [place]: -5 T Wave [place]: 47 EKG Severity - NORMAL ECG - EKG Impression: SINUS RHYTHM EKG Impression: Agree with above Electronically Signed By: Blair Borjas 31-Jul-2016 20:17:05
[2016-08-01] MEDS: KETOROLAC 15 MG/1 ML SDV IVP SCH ×3 (00:01→12:30)
[2016-08-01] MEDS: OXYCODONE/APAP 5/325 TAB PO PRN ×6 (00:04→23:21)
[2016-08-01] MEDS: HYDROmorphONE/DILAUDID 1 MG/ML SYR IVP PRN ×7 (05:05→23:37)
[2016-08-01] MEDS: PANTOPRAZOLE SODIUM 40 MG TAB PO SCH (08:44)
[2016-08-01] MEDS: TAMSULOSIN HCL 0.4 MG CAP PO SCH (08:44)
[2016-08-01] MEDS: POLYETHYLENE GLYCOL 3350 17 GM PKT PO SCH (08:44)
[2016-08-01] MEDS: morphINE SR 30 MG TAB PO SCH ×3 (08:44→21:44)
[2016-08-01] MEDS: AMOXICILLIN/CLAVULANATE POT 875/125 MG TAB PO SCH ×2 (08:44→20:05)
[2016-08-01] MEDS: ENOXAPARIN 40 MG/0.4 ML SYR SC SCH (11:09)
[2016-08-01] MEDS ORDERED: MAGNESIUM HYDROXIDE 30 ML UDCUP PO PRN (11:29)
[2016-08-01] MEDS ORDERED: BISACODYL 10 MG SUPP PR PRN (11:29)
--- NOTE | 2016-08-01 12:11 | SOAPPROG ---
SOAP Progress Note Assessment/Plan: Assessment: 1.) E.coli abscess - Perirectal now S/P drainage and remaining afebrile. 2.) Rectal Carcinoma, S/P first line chemotherapy, and now mildly pancytopenic from most recent tx. 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 4.) Tx related myelosuppression- stable Plan: 1.) Change from IV Ertapenem today to Augmentin 08/01 and observe for adequacy of this antibiotic strategy. 2.) Continue analgesics. Increase in long acting narcotic today and re-assess for sx. control. 3.) Follow labs + VS + sx. I am concerned that after 6 days of IV antibiotics and surgical I+D that his sx. are still prominent. As discussed with Ed today, will order repeat CT pelvis (with IV and not po contrast) to assess for incomplete abscess drainage,which would explain his ongoing sx. Pt agreeable. 4.) No need for transfusion support now, and expect myelosuppression to improve. 08/01/16 12:11 Subjective: Still with considerable perirectal pain despite multiple days of antibiotics and I+D of gabriela-rectal abscess Objective: Afebrile, VSS HEENT- anicteric, no oral lesions Neck- supple Chest- clear CVS- RSR, no extra HS ABD- soft, NT, BS+, Gabriela-rectal area thaw shed heater tender/erythematous EXT- no edema. Labs as noted here Vital Signs Temp Pulse Resp BP Pulse Ox 36.7 C 54 L 16 136/86 H 96 08/01/16 08:31 08/01/16 08:31 08/01/16 08:31 08/01/16 08:31 08/01/16 08:31 Microbiology 07/27/16 00:25 Blood Culture - Final Blood 07/27/16 00:15 Blood Culture - Final Blood 07/27/16 14:22 Gram Stain - Final Buttock - Aspirate 07/27/16 14:22 Gram Stain - Final Buttock - Eswab Laboratory Results 07/31/16 05:00 07/31/16 05:00 07/31/16 08/01/16 08/02/16 05:59 05:59 05:59 Intake Total 2250 1700 Output Total 925 1450 Balance 1325 250 PT 20.4 SEC (12.0-15.0) H 07/27/16 04:35 INR 1.74 (0.83-1.16) H 07/27/16 04:35 ICD10 Worksheet Patient Problems: Problems Problem Status Onset Abdominal pain Acute Acute hyperactive alcohol withdrawal delirium Acute Alcohol dependence Acute Alcohol withdrawal Acute Colorectal cancer Acute Colorectal cancer, stage IV Acute Hematochezia Acute
--- NOTE | 2016-08-01 12:20 | SOAPPROG ---
SOAP Progress Note Assessment/Plan: Assessment: 45yo male s/p I&D of perirectal abscess (Dr Wood), debridement, history of metastatic rectal cancer. History of diverting ostomy. Tolerating regular diet, significant pain this AM -- -CT pending, ordered by Onc PE awake alert exam wound with serosag discharge, shazia in place, no surrounding erythema or fluctuance. Plan: daily irrigation of wound with red tip catheter and saline. dressing changes as needed will likely need APR surgery at later day. will F/U CT results. 07/29/16 11:24 07/29/16 11:57 07/29/16 12:00 07/31/16 11:34 08/01/16 12:19 Objective: Vital Signs Temp Pulse Resp BP Pulse Ox 36.7 C 54 L 16 136/86 H 96 08/01/16 08:31 08/01/16 08:31 08/01/16 08:31 08/01/16 08:31 08/01/16 08:31 Microbiology 07/27/16 00:25 Blood Culture - Final Blood 07/27/16 00:15 Blood Culture - Final Blood 07/27/16 14:22 Gram Stain - Final Buttock - Aspirate 07/27/16 14:22 Gram Stain - Final Buttock - Eswab Laboratory Results 07/31/16 05:00 07/31/16 05:00 07/31/16 08/01/16 08/02/16 05:59 05:59 05:59 Intake Total 2250 1700 Output Total 925 1450 Balance 1325 250 PT 20.4 SEC (12.0-15.0) H 07/27/16 04:35 INR 1.74 (0.83-1.16) H 07/27/16 04:35 ICD10 Worksheet Patient Problems: Problems Problem Status Onset Abdominal pain Acute Acute hyperactive alcohol withdrawal delirium Acute Alcohol dependence Acute Alcohol withdrawal Acute Colorectal cancer Acute Colorectal cancer, stage IV Acute Hematochezia Acute
[2016-08-01] MEDS ORDERED: IOPAMIDOL (ISOVUE-300) 100 ML BTL IV ONE (13:42)
--- NOTE | 2016-08-01 16:30 | HOSPPROG ---
Hospitalist Progress Note Assessment/Plan: #Acute on chronic rectal pain: would not expect persistent pain with surgical intervention and abx. Repeat CT showed improvement, afebrile. - Baseline pain at home 2-3 -increased MS Contin yesterday; using less [place] in past 24hrs. Will uptitrate tomorrow if not controlled. -query if depressed mood playing role?? He denies feeling down, but has been anxious with nursing. Add low-dose Ativan PRN #E coli rectal abscess: s/p I/D by Dr. Wood 07/27 -improvement on repeat CT today --changed to Augmentin today #Hypokalemia: repleted #Rectal carcinoma: s/p first-line chemotherapy #Diet: regular #DVT ppx: SCDs #Disp: DC once improved from surgical standpoint and on good pain regimen Subjective: pain worst today was a 6, aamir with getting up to use restroom Objective: Vital Signs Temp Pulse Resp BP Pulse Ox 36.8 C 84 18 123/78 H 94 08/01/16 12:28 08/01/16 12:28 08/01/16 12:28 08/01/16 12:28 08/01/16 12:28 Microbiology 07/27/16 14:22 Gram Stain - Final Buttock - Aspirate 07/27/16 14:22 Gram Stain - Final Buttock - Eswab 07/27/16 00:25 Blood Culture - Final Blood 07/27/16 00:15 Blood Culture - Final Blood Laboratory Results 07/31/16 05:00 07/31/16 05:00 07/31/16 08/01/16 08/02/16 05:59 05:59 05:59 Intake Total 2250 1700 Output Total 925 1450 Balance 1325 250 PT 20.4 SEC (12.0-15.0) H 07/27/16 04:35 INR 1.74 (0.83-1.16) H 07/27/16 04:35 - Physical Exam Constitutional: no apparent distress Eyes: PERRL Ears, Nose, Mouth, Throat: moist mucous membranes, hearing normal Cardiovascular: regular rate and rhythym, no murmur, rub, or gallop Respiratory: no respiratory distress Gastrointestinal: normoactive bowel sounds Genitourinary: other (shazia in place. Serosanginous drainage. Skin erythematous with TTP) Skin: warm Musculoskeletal: full muscle strength Neurologic: AAOx3 Psychiatric: flat affect ICD10 Worksheet Patient Problems: Problems Problem Status Onset Abdominal pain Acute Acute hyperactive alcohol withdrawal delirium Acute Alcohol dependence Acute Alcohol withdrawal Acute Colorectal cancer Acute Colorectal cancer, stage IV Acute Hematochezia Acute
[2016-08-01] MEDS: SENNOSIDES/DOCUSATE SODIUM TAB PO SCH (20:05)
[2016-08-01] MEDS: LORazepam 0.5 MG TAB PO PRN (23:18)
[2016-08-02] MEDS: HYDROmorphONE/DILAUDID 1 MG/ML SYR IVP PRN ×2 (03:24→05:56)
[2016-08-02] MEDS: OXYCODONE/APAP 5/325 TAB PO PRN ×5 (03:38→21:24)
[2016-08-02 06:11] LABS: HEMATOCRIT 33.7 % (40.0-51.0); HEMOGLOBIN 11.1 g/dL (13.7-17.5); MEAN CELL HEMOGLOBIN 28.8 pg (27.9-34.1); MEAN CELL HEMOGLOBIN CONCENTR. 32.9 g/dL (32.4-36.7); MEAN CELL VOLUME 87.5 fL (81.5-99.8); RED BLOOD CELL COUNT 3.85 10^6/uL (4.40-6.38); RED CELL DISTRIBUTION WIDTH 18.1 % (11.5-15.2)
[2016-08-02] MEDS ORDERED: HYDROmorphONE/DILAUDID 1 MG/ML SYR IVP PRN ×2 (08:22→16:16)
[2016-08-02] MEDS ORDERED: morphINE SR 15 MG TAB PO ONE (08:23)
[2016-08-02] MEDS: AMOXICILLIN/CLAVULANATE POT 875/125 MG TAB PO SCH ×2 (09:28→20:36)
[2016-08-02] MEDS: morphINE SR 15 MG TAB PO SCH ×3 (09:28→21:23)
[2016-08-02] MEDS: PANTOPRAZOLE SODIUM 40 MG TAB PO SCH (09:29)
[2016-08-02] MEDS: TAMSULOSIN HCL 0.4 MG CAP PO SCH (09:29)
[2016-08-02] MEDS: SENNOSIDES/DOCUSATE SODIUM TAB PO SCH ×2 (09:30→20:36)
[2016-08-02] MEDS: ENOXAPARIN 40 MG/0.4 ML SYR SC SCH (10:15)
[2016-08-02] MEDS: POLYETHYLENE GLYCOL 3350 17 GM PKT PO SCH (10:45)
--- NOTE | 2016-08-02 12:12 | SOAPPROG ---
SOAP Progress Note Assessment/Plan: Assessment: 1.) E.coli abscess - Perirectal now S/P drainage and remaining afebrile. Now on Augmentin. 2.) Rectal Carcinoma, S/P first line chemotherapy, and now mildly pancytopenic from most recent tx. 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 4.) Tx related myelosuppression- stable Plan: 1.) Changed from IV Ertapenem today to Augmentin 08/01 and observe for adequacy of this antibiotic strategy. 2.) Continue analgesics. Increase in long acting narcotic today and re-assess for sx. control. 3.) Since CT of pelvis shows no new abscess pocket and smaller abscess cavity- he is having adequate medical surgical management. We discussed arrangement for home dressing care pending surgical follow up and home oral Augmentin therapy. Perhaps he could go home in the next 48 hours. 08/02/16 12:06 Subjective: No new sx. Pain easing somewhat. Taking diet without N/V. Adequate colostomy output. Objective: Afebrile, VSS as noted here. Pt alert, talkative, and in NAD. HEENT- anicteric, no oral lesions, Pulse strong/regular, Ext- w/out edema Labs as noted here. Vital Signs Temp Pulse Resp BP Pulse Ox 36.5 C 79 16 122/80 H 94 08/02/16 08:00 08/02/16 08:00 08/02/16 08:00 08/02/16 08:00 08/02/16 08:00 Microbiology 07/27/16 14:22 Gram Stain - Final Buttock - Aspirate 07/27/16 14:22 Gram Stain - Final Buttock - Eswab 07/27/16 00:25 Blood Culture - Final Blood 07/27/16 00:15 Blood Culture - Final Blood Laboratory Results 08/02/16 06:00 07/31/16 05:00 08/01/16 08/02/16 08/03/16 05:59 05:59 05:59 Intake Total 1700 2500 Output Total 1450 1400 1200 Balance 250 1100 -1200 PT 20.4 SEC (12.0-15.0) H 07/27/16 04:35 INR 1.74 (0.83-1.16) H 07/27/16 04:35 ICD10 Worksheet Patient Problems: Problems Problem Status Onset Abdominal pain Acute Acute hyperactive alcohol withdrawal delirium Acute Alcohol dependence Acute Alcohol withdrawal Acute Colorectal cancer Acute Colorectal cancer, stage IV Acute Hematochezia Acute
--- NOTE | 2016-08-02 14:13 | SOAPPROG ---
SOAP Progress Note Assessment/Plan: Assessment: 45yo male s/p I&D of perirectal abscess (Dr Wood), debridement, history of metastatic rectal cancer. History of diverting ostomy. Tolerating regular diet, significant pain this AM -- -CT pending, ordered by Onc PE awake alert exam wound with serosag discharge, shazia in place, no surrounding erythema or fluctuance. Plan: daily irrigation of wound with red tip catheter and saline. dressing changes as needed will likely need APR surgery at later day. will F/U CT results. 08/02/16 14:13 Objective: Vital Signs Temp Pulse Resp BP Pulse Ox 37.1 C 86 16 109/76 96 08/02/16 12:00 08/02/16 12:00 08/02/16 12:00 08/02/16 12:00 08/02/16 12:00 Microbiology 07/27/16 14:22 Gram Stain - Final Buttock - Aspirate 07/27/16 14:22 Gram Stain - Final Buttock - Eswab Laboratory Results 08/02/16 06:00 07/31/16 05:00 08/01/16 08/02/16 08/03/16 05:59 05:59 05:59 Intake Total 1700 2500 Output Total 1450 1400 1200 Balance 250 1100 -1200 PT 20.4 SEC (12.0-15.0) H 07/27/16 04:35 INR 1.74 (0.83-1.16) H 07/27/16 04:35 ICD10 Worksheet Patient Problems: Problems Problem Status Onset Abdominal pain Acute Acute hyperactive alcohol withdrawal delirium Acute Alcohol dependence Acute Alcohol withdrawal Acute Colorectal cancer Acute Colorectal cancer, stage IV Acute Hematochezia Acute
--- NOTE | 2016-08-02 14:15 | SOAPPROG ---
SOAP Progress Note Assessment/Plan: Assessment: 45yo male s/p I&D of perirectal abscess, debridement, history of metastatic rectal cancer. History of diverting ostomy. Less but still persistent pain this morning. Some blood from rectum while standing up noted per nursing. PE awake alert ctab rrr exam wound with serosaguineous discharge with shazia, no erythema no edema bilaterally Plan: Continue daily irrigation and wound care. CT scan shows no new abscess formation. 08/02/16 14:16 Objective: Vital Signs Temp Pulse Resp BP Pulse Ox 37.1 C 86 16 109/76 96 08/02/16 12:00 08/02/16 12:00 08/02/16 12:00 08/02/16 12:00 08/02/16 12:00 Microbiology 07/27/16 14:22 Gram Stain - Final Buttock - Aspirate 07/27/16 14:22 Gram Stain - Final Buttock - Eswab Laboratory Results 08/02/16 06:00 07/31/16 05:00 08/01/16 08/02/16 08/03/16 05:59 05:59 05:59 Intake Total 1700 2500 Output Total 1450 1400 1200 Balance 250 1100 -1200 PT 20.4 SEC (12.0-15.0) H 07/27/16 04:35 INR 1.74 (0.83-1.16) H 07/27/16 04:35 ICD10 Worksheet Patient Problems: Problems Problem Status Onset Abdominal pain Acute Acute hyperactive alcohol withdrawal delirium Acute Alcohol dependence Acute Alcohol withdrawal Acute Colorectal cancer Acute Colorectal cancer, stage IV Acute Hematochezia Acute
--- NOTE | 2016-08-02 16:15 | HOSPPROG ---
Hospitalist Progress Note Assessment/Plan: #Acute on chronic rectal pain: would not expect persistent pain to this degree. Repeat CT showed significant improvement. -upon review of MAR, pt has been getting the higher dose on pain scale despite reporting pain less than 5, thus getting more opioids than needed. I discussed with RN that he should be dosed on pain score alone, not patient/RN preference. Plus, he should be using less short-acting with increase in MS Contin -I counseled pt in detail that decreasing dose and frequency of PRN opioids and he is amendable to plan -anxiety playing a role as well. Ativan 0.5mg PRN #E coli rectal abscess: s/p I/D by Dr. Wood 07/27 -improvement on repeat CT 08/01 -changed to Augmentin 08/01 #Hypokalemia: repleted #Rectal carcinoma: s/p first-line chemotherapy #Diet: regular #DVT ppx: SCDs #Disp: DC once improved from surgical standpoint and on good pain regimen Subjective: pain better today. Concerned about dressing care at home Objective: Vital Signs Temp Pulse Resp BP Pulse Ox 37.0 C 85 16 114/76 95 08/02/16 16:00 08/02/16 16:00 08/02/16 16:00 08/02/16 16:00 08/02/16 16:00 Microbiology 07/27/16 14:22 Gram Stain - Final Buttock - Aspirate 07/27/16 14:22 Gram Stain - Final Buttock - Eswab Laboratory Results 08/02/16 06:00 07/31/16 05:00 08/01/16 08/02/16 08/03/16 05:59 05:59 05:59 Intake Total 1700 2500 Output Total 1450 1400 1600 Balance 250 1100 -1600 PT 20.4 SEC (12.0-15.0) H 07/27/16 04:35 INR 1.74 (0.83-1.16) H 07/27/16 04:35 - Physical Exam Constitutional: no apparent distress Ears, Nose, Mouth, Throat: moist mucous membranes, hearing normal Cardiovascular: regular rate and rhythym, no murmur, rub, or gallop Respiratory: no respiratory distress Gastrointestinal: normoactive bowel sounds, soft, non-tender abdomen, other ( colostomy with brown stool.) Genitourinary: other (drain in place. Erythema improved on buttocks) Skin: warm Musculoskeletal: full muscle strength Neurologic: AAOx3 Psychiatric: anxious, flat affect ICD10 Worksheet Patient Problems: Problems Problem Status Onset Abdominal pain Acute Acute hyperactive alcohol withdrawal delirium Acute Alcohol dependence Acute Alcohol withdrawal Acute Colorectal cancer Acute Colorectal cancer, stage IV Acute Hematochezia Acute
--- NOTE | 2016-08-02 23:59 | SOAPPROG ---
[facility] Progress Note Assessment/Plan: Assessment: 45 MALE WITH COLOSTOMY FOR RECTAL CA, METASTATIC TO LIVER NOW WITH SEVERE PERIRECTAL PAIN AND CT WITH PERFORATION AND AIR IN SOFT TISSUES AFEBRILE/ SOME RECTAL DRAINAGE TOO PAINFUL FOR RECTAL EXAM RISKS AND OPTIONS FULLY DISCUSSED Plan:I & D IN OR 07/27/16 15:05 07/28/16 12:20 MUCH IMPROVED/ AFEBRILE/ MODERATE DRAINAGE/ MINIMAL PAIN/ WILL EVENTUALLY NEED APR 07/29/16 12:24 WOUND OKAY/AFEBRILE/ REASONABLY COMFORTABLE / WILL NEED APR WHEN INFECTION UNDER CONTROL 08/02/16 23:58 MORE COMFORTABLE BUT NOT PAIN FREE/ AFEBRILE/ WOUND OK/ RISKS AND OPTIONS FULLY DISCUSSED/ HE IS AGREEABLE WITH APR SOON Objective: Vital Signs Temp Pulse Resp BP Pulse Ox 37.0 C 122 H 16 108/80 93 08/02/16 20:00 08/02/16 20:00 08/02/16 20:00 08/02/16 20:00 08/02/16 20:00 Microbiology 07/27/16 14:22 Gram Stain - Final Buttock - Aspirate 07/27/16 14:22 Gram Stain - Final Buttock - Eswab Laboratory Results 08/02/16 06:00 07/31/16 05:00 08/01/16 08/02/16 08/03/16 05:59 05:59 05:59 Intake Total 1700 2500 250 Output Total 1450 1400 1600 Balance 250 1100 -1350 PT 20.4 SEC (12.0-15.0) H 07/27/16 04:35 INR 1.74 (0.83-1.16) H 07/27/16 04:35 ICD10 Worksheet Patient Problems: Problems Problem Status Onset Abdominal pain Acute Acute hyperactive alcohol withdrawal delirium Acute Alcohol dependence Acute Alcohol withdrawal Acute Colorectal cancer Acute Colorectal cancer, stage IV Acute Hematochezia Acute
[2016-08-03] MEDS: OXYCODONE/APAP 5/325 TAB PO PRN ×5 (02:19→20:47)
[2016-08-03] MEDS: LORazepam 0.5 MG TAB PO PRN (03:52)
[2016-08-03 03:55] LABS: ADD DIFF? YES; ADD MORPH? NO; ADD SCAN? NO; ATYPICAL LYMPHOCYTE FLAG 50 (0-99); FRAGMENT RBC FLAG 0 (0-99); HEMOGLOBIN 11.1 g/dL (13.7-17.5); LEFT SHIFT FLG 40 (0-99); LIPEMIA HEMOLYSIS FLAG 80 (0-99); MEAN CELL HEMOGLOBIN 28.4 pg (27.9-34.1); MEAN CELL HEMOGLOBIN CONCENTR. 32.6 g/dL (32.4-36.7); MEAN PLATELET VOLUME 8.9 fL (8.7-11.7); PLATELET CLUMPS FLAG 40 (0-99); PLATELET COUNT 137 10^3/uL (150-400); RED BLOOD CELL COUNT 3.91 10^6/uL (4.40-6.38); RED CELL DISTRIBUTION WIDTH 18.1 % (11.5-15.2)
[2016-08-03] MEDS ORDERED: NS 1,000 ML IV ONE (04:03)
[2016-08-03 04:09] LABS: ANION GAP 9 mEq/L (8-16); CALCIUM 8.2 mg/dL (8.5-10.4); CARBON DIOXIDE 24 mEq/l (22-31); CHLORIDE 104 mEq/L (97-110); CREATININE 0.6 mg/dL (0.7-1.3); GLOMERULAR FILTRATION RATE > 60; GLUCOSE 107 mg/dL (70-100); POTASSIUM 4.1 mEq/L (3.5-5.2); SODIUM 137 mEq/L (134-144)
[2016-08-03 04:37] LABS: PLATELET ESTIMATE DECREASED (ADEQ); POLYCHROMASIA 1+; TOXIC GRANULATION PRESENT
[2016-08-03] MEDS: morphINE SR 15 MG TAB PO SCH (08:04)
[2016-08-03] MEDS: TAMSULOSIN HCL 0.4 MG CAP PO SCH (08:06)
[2016-08-03] MEDS: PANTOPRAZOLE SODIUM 40 MG TAB PO SCH (08:06)
[2016-08-03] MEDS: AMOXICILLIN/CLAVULANATE POT 875/125 MG TAB PO SCH ×2 (08:06→20:41)
--- NOTE | 2016-08-03 08:15 | SOAPPROG ---
SOAP Progress Note Assessment/Plan: Assessment: 45 MALE WITH COLOSTOMY FOR RECTAL CA, METASTATIC TO LIVER NOW WITH SEVERE PERIRECTAL PAIN AND CT WITH PERFORATION AND AIR IN SOFT TISSUES AFEBRILE/ SOME RECTAL DRAINAGE TOO PAINFUL FOR RECTAL EXAM RISKS AND OPTIONS FULLY DISCUSSED Plan:I & D IN OR 07/27/16 15:05 07/28/16 12:20 MUCH IMPROVED/ AFEBRILE/ MODERATE DRAINAGE/ MINIMAL PAIN/ WILL EVENTUALLY NEED APR 07/29/16 12:24 WOUND OKAY/AFEBRILE/ REASONABLY COMFORTABLE / WILL NEED APR WHEN INFECTION UNDER CONTROL 08/02/16 23:58 MORE COMFORTABLE BUT NOT PAIN FREE/ AFEBRILE/ WOUND OK/ RISKS AND OPTIONS FULLY DISCUSSED/ HE IS AGREEABLE WITH APR SOON 08/03/16 08:14 afebrile / pain control improving / hopefully home soon on IV antibiotics and then APR down the line Objective: Vital Signs Temp Pulse Resp BP Pulse Ox 36.6 C 86 18 103/62 96 08/03/16 07:28 08/03/16 07:28 08/03/16 07:28 08/03/16 07:28 08/03/16 07:28 Microbiology 07/27/16 14:22 Gram Stain - Final Buttock - Aspirate 07/27/16 14:22 Gram Stain - Final Buttock - Eswab Laboratory Results 08/03/16 03:45 08/03/16 03:45 08/02/16 08/03/16 08/04/16 05:59 05:59 05:59 Intake Total 2500 1150 Output Total 1400 1600 500 Balance 1100 -450 -500 PT 20.4 SEC (12.0-15.0) H 07/27/16 04:35 INR 1.74 (0.83-1.16) H 07/27/16 04:35 ICD10 Worksheet Patient Problems: Problems Problem Status Onset Abdominal pain Acute Acute hyperactive alcohol withdrawal delirium Acute Alcohol dependence Acute Alcohol withdrawal Acute Colorectal cancer Acute Colorectal cancer, stage IV Acute Hematochezia Acute
[2016-08-03] MEDS: ENOXAPARIN 40 MG/0.4 ML SYR SC SCH (08:16)
[2016-08-03] MEDS: POLYETHYLENE GLYCOL 3350 17 GM PKT PO SCH (08:17)
[2016-08-03] MEDS: SENNOSIDES/DOCUSATE SODIUM TAB PO SCH ×2 (08:17→20:41)
--- NOTE | 2016-08-03 11:17 | HOSPPROG ---
Hospitalist Progress Note Assessment/Plan: #Acute on chronic rectal pain: -improved today. Will decrease IV frequency and MS Contin dose. Pain should be improving since abscess was drained and improvement on repeat CT #Bloody stool: overnight. Not on steroids/NSAIDs. On PPI. H/H stable. None today #E coli rectal abscess: s/p I/D by Dr. Wood 07/27 -improvement on repeat CT 08/01 -changed to Augmentin 08/01, Day 01/16 #Hypokalemia: repleted #Rectal carcinoma: s/p first-line chemotherapy #Diet: regular #DVT ppx: SCDs #Disp: DC once improved from surgical standpoint and on good pain regimen Subjective: had blood squirt from colostomy bag last night all over bathroom. Asymptomatic then. Objective: Vital Signs Temp Pulse Resp BP Pulse Ox 36.6 C 86 18 103/62 96 08/03/16 07:28 08/03/16 07:28 08/03/16 07:28 08/03/16 07:28 08/03/16 07:28 Microbiology 07/27/16 14:22 Gram Stain - Final Buttock - Aspirate 07/27/16 14:22 Gram Stain - Final Buttock - Eswab Laboratory Results 08/03/16 03:45 08/03/16 03:45 08/02/16 08/03/16 08/04/16 05:59 05:59 05:59 Intake Total 2500 1150 Output Total 1400 1600 500 Balance 1100 -450 -500 PT 20.4 SEC (12.0-15.0) H 07/27/16 04:35 INR 1.74 (0.83-1.16) H 07/27/16 04:35 - Physical Exam Constitutional: no apparent distress Eyes: PERRL Ears, Nose, Mouth, Throat: moist mucous membranes Cardiovascular: regular rate and rhythym Respiratory: no respiratory distress Gastrointestinal: other (colostomy with brown stool) Genitourinary: no bladder fullness, other (rectal drain in place) Skin: warm Musculoskeletal: full muscle strength Neurologic: AAOx3 Psychiatric: interacting appropriately ICD10 Worksheet Patient Problems: Problems Problem Status Onset Abdominal pain Acute Acute hyperactive alcohol withdrawal delirium Acute Alcohol dependence Acute Alcohol withdrawal Acute Colorectal cancer Acute Colorectal cancer, stage IV Acute Hematochezia Acute
[2016-08-03] MEDS ORDERED: morphINE SR 15 MG TAB PO SCH (13:24)
[2016-08-03] MEDS ORDERED: oxyCODONE IR 5 MG TAB PO ONE ×2 (13:32→18:25)
[2016-08-03] MEDS ORDERED: HYDROmorphONE/DILAUDID 1 MG/ML SYR IVP PRN (14:44)
--- NOTE | 2016-08-03 14:44 | SOAPPROG ---
SOAP Progress Note Assessment/Plan: Assessment: 1. Perirectal abscess - e.coli - drained. Patient's pain is currently a 3 of 10. Weaning off [employer]. 2. Rectal CA - chemo on hold for the moment Plan: Move from parenteral narcotics to outpatient pain regimen Rx perirectal abscess Chemo on hold for now No TXN needed today. Subjective: Napping. Patient states pain in a 3 of 10 when I woke him up to ask about pain. Objective: Vital Signs Temp Pulse Resp BP Pulse Ox 36.6 C 84 18 106/70 93 08/03/16 11:33 08/03/16 11:33 08/03/16 11:33 08/03/16 11:33 08/03/16 11:33 Microbiology 07/27/16 14:22 Gram Stain - Final Buttock - Aspirate Anaerobic Culture - Final Escherichia Coli 07/27/16 14:22 Gram Stain - Final Buttock - Eswab Anaerobic Culture - Final Escherichia Coli Laboratory Results 08/03/16 03:45 08/03/16 03:45 08/01/16 08/02/16 08/03/16 23:59 23:59 23:59 Intake Total 2200 750 900 Output Total 1300 2000 500 Balance 900 -1250 400 PT 20.4 SEC (12.0-15.0) H 07/27/16 04:35 INR 1.74 (0.83-1.16) H 07/27/16 04:35 Physical Exam - Physical Exam General Appearance: mild distress Respiratory: lungs clear Cardiac/Chest: regular rate, rhythm Abdomen: normal bowel sounds, other (colostomy LLQ functioning) Skin: warm/dry ICD10 Worksheet Patient Problems: Problems Problem Status Onset Abdominal pain Acute Acute hyperactive alcohol withdrawal delirium Acute Alcohol dependence Acute Alcohol withdrawal Acute Colorectal cancer Acute Colorectal cancer, stage IV Acute Hematochezia Acute
[2016-08-03] MEDS: morphINE SR 30 MG TAB PO SCH ×2 (16:05→21:58)
[2016-08-04] MEDS: OXYCODONE/APAP 5/325 TAB PO PRN ×6 (03:50→23:36)
[2016-08-04 04:38] LABS: HEMATOCRIT 33.8 % (40.0-51.0); HEMOGLOBIN 10.9 g/dL (13.7-17.5); MEAN CELL HEMOGLOBIN 28.8 pg (27.9-34.1); MEAN CELL HEMOGLOBIN CONCENTR. 32.2 g/dL (32.4-36.7); MEAN CELL VOLUME 89.2 fL (81.5-99.8); RED BLOOD CELL COUNT 3.79 10^6/uL (4.40-6.38); RED CELL DISTRIBUTION WIDTH 18.3 % (11.5-15.2)
--- NOTE | 2016-08-04 08:06 | SOAPPROG ---
SOAP Progress Note Assessment/Plan: Assessment: 45 yo well known to me with metastatic colon cancer. S/P diverting port and diverting colostomy Presented with pain and had perforation/necrosis of lateral rectal wall. S/P Drainage Allowing inflammation to decrease and then will benefit from APR. I described the surgery to Kaushal. S: Feeling better today O: Sitting in bed watching tv Large shazia drain by rectum, abd with serosang staining Plan: 08/04/16 08:06 08/04/16 08:07 Objective: Vital Signs Temp Pulse Resp BP Pulse Ox 37.7 C 95 16 90/60 L 95 08/04/16 03:35 08/04/16 03:35 08/04/16 03:35 08/04/16 03:35 08/04/16 03:35 Microbiology 07/27/16 14:22 Gram Stain - Final Buttock - Aspirate Anaerobic Culture - Final Escherichia Coli 07/27/16 14:22 Gram Stain - Final Buttock - Eswab Anaerobic Culture - Final Escherichia Coli Laboratory Results 08/04/16 04:15 08/03/16 03:45 08/03/16 08/04/16 08/05/16 05:59 05:59 05:59 Intake Total 1150 300 Output Total 1600 1000 Balance -450 -700 PT 20.4 SEC (12.0-15.0) H 07/27/16 04:35 INR 1.74 (0.83-1.16) H 07/27/16 04:35 ICD10 Worksheet Patient Problems: Problems Problem Status Onset Abdominal pain Acute Acute hyperactive alcohol withdrawal delirium Acute Alcohol dependence Acute Alcohol withdrawal Acute Colorectal cancer Acute Colorectal cancer, stage IV Acute Hematochezia Acute
[2016-08-04] MEDS: AMOXICILLIN/CLAVULANATE POT 875/125 MG TAB PO SCH ×2 (08:15→21:13)
[2016-08-04] MEDS: morphINE SR 30 MG TAB PO SCH ×3 (08:15→21:13)
[2016-08-04] MEDS: PANTOPRAZOLE SODIUM 40 MG TAB PO SCH (08:15)
[2016-08-04] MEDS: TAMSULOSIN HCL 0.4 MG CAP PO SCH (08:16)
[2016-08-04] MEDS: POLYETHYLENE GLYCOL 3350 17 GM PKT PO SCH (08:29)
[2016-08-04] MEDS: SENNOSIDES/DOCUSATE SODIUM TAB PO SCH ×2 (08:30→21:13)
--- NOTE | 2016-08-04 09:14 | HOSPPROG ---
Hospitalist Progress Note Assessment/Plan: #Acute on chronic rectal pain: -better pain today. Decreased MS Contin to 30mg BID 08/03 (on 15mg TID at home) Query if anxiety or other factor playing role since pain should be improved since abscess was drained and improvement on repeat CT #Bloody stool: resolved. Not on steroids/NSAIDs. On PPI. H/H stable. #E coli rectal abscess: s/p I/D by Dr. Wood 07/27 -improvement on repeat CT 08/01 -changed to Augmentin 08/01, Day 02/15 #Hypokalemia: repleted #Rectal carcinoma: s/p first-line chemotherapy #Diet: regular #DVT ppx: SCDs #Disp: plan to DC tomorrow with home care for dressing changes, etc Subjective: pain better today. No bloody stool Objective: Vital Signs Temp Pulse Resp BP Pulse Ox 36.8 C 92 18 99/61 L 91 L 08/04/16 08:30 08/04/16 08:30 08/04/16 08:30 08/04/16 08:30 08/04/16 08:30 Microbiology 07/27/16 14:22 Gram Stain - Final Buttock - Aspirate Anaerobic Culture - Final Escherichia Coli 07/27/16 14:22 Gram Stain - Final Buttock - Eswab Anaerobic Culture - Final Escherichia Coli Laboratory Results 08/04/16 04:15 08/03/16 03:45 08/03/16 08/04/16 08/05/16 05:59 05:59 05:59 Intake Total 1150 300 Output Total 1600 1000 200 Balance -450 -700 -200 PT 20.4 SEC (12.0-15.0) H 07/27/16 04:35 INR 1.74 (0.83-1.16) H 07/27/16 04:35 - Physical Exam Constitutional: no apparent distress Eyes: PERRL Ears, Nose, Mouth, Throat: moist mucous membranes Cardiovascular: regular rate and rhythym Respiratory: no respiratory distress Gastrointestinal: other (colostomy with brown stool) Genitourinary: no bladder fullness, other (shazia drain in rectum. Mild erythema) Skin: warm Musculoskeletal: full muscle strength Neurologic: AAOx3 Psychiatric: flat affect ICD10 Worksheet Patient Problems: Problems Problem Status Onset Abdominal pain Acute Acute hyperactive alcohol withdrawal delirium Acute Alcohol dependence Acute Alcohol withdrawal Acute Colorectal cancer Acute Colorectal cancer, stage IV Acute Hematochezia Acute
--- NOTE | 2016-08-04 15:47 | PDIAF ---
- Diagnosis Code Status: Full Code - Medication Management Discharge Medications: Medications to Continue on Transfer Morphine Sulfate [Ms Contin] 15 mg PO TID 04/11/16 [Last Taken 07/26/16] Pantoprazole Sodium [Protonix 40mg (*)] 40 mg PO DAILY 04/11/16 [Last Taken ] Tamsulosin HCl [Flomax 0.4 MG (*)] 0.4 mg PO DAILY 04/11/16 [Last Taken 07/25/16 ] Dexamethasone [Decadron 4 MG (*)] 4 mg PO DAILY 07/26/16 [Last Taken 07/26/16] HYDROcodone/APAP 10/325 [Par[place]ise 10/325 (*)] 1 tab PO Q6HRS PRN 07/26/16 [Last Taken 07/26/16] Discharge Medications: Refer to the Discharge Home Medication list for PRN reason. - Orders Services needed: Home Care, Registered Nurse (dressing changes) Home Care Face to Face: I certify that this patient was under my care and that I had the required [id number] encounter meeting the encounter requirements on the discharge day. My findings support the fact that the patient is homebound as defined in CMS Chapter 7 Medicare Benefits Manual 30.1.1, The condition of the patient is such that there exists a normal inability to leave home and consequently, leaving home would require a considerable and taxing effort. - Follow Up Care Current Providers and Referrals: Patient,NotPresent [Primary Care Provider] -
[2016-08-04 20:06] VITALS: RESP 16
[2016-08-04] MEDS: LORazepam 0.5 MG TAB PO PRN (21:13)
[2016-08-05] MEDS: OXYCODONE/APAP 5/325 TAB PO PRN ×3 (05:26→17:09)
[2016-08-05] MEDS: AMOXICILLIN/CLAVULANATE POT 875/125 MG TAB PO SCH (09:23)
[2016-08-05] MEDS: PANTOPRAZOLE SODIUM 40 MG TAB PO SCH (09:24)
[2016-08-05] MEDS: TAMSULOSIN HCL 0.4 MG CAP PO SCH (09:24)
[2016-08-05] MEDS: POLYETHYLENE GLYCOL 3350 17 GM PKT PO SCH (09:24)
[2016-08-05] MEDS: morphINE SR 30 MG TAB PO SCH ×2 (09:24→15:18)
[2016-08-05] MEDS: SENNOSIDES/DOCUSATE SODIUM TAB PO SCH (09:24)
--- NOTE | 2016-08-05 10:05 | SOAPPROG ---
SOAP Progress Note Assessment/Plan: Assessment/plan: 45 Y M rectal CA, liver mets, +ostomy, now s/p EUA and I&D perirectal abscess with debridement, necrotic lateral rectal wall. Seen and examined with Dr. Wood. Wound clean. Hunter drain in place. Eventually may need APR. S: Not much pain. No fevers or chills. O: gen:awake, alert, nad heent: mmm chest: no wob abd: non-distended, non-tender, +ostomy ext: no edema gen: drain in place. mild erythema/irritation at wound margins 08/05/16 10:02 Objective: Vital Signs Temp Pulse Resp BP Pulse Ox 36.6 C 83 16 104/70 92 08/05/16 08:30 08/05/16 08:30 08/05/16 08:30 08/05/16 08:30 08/05/16 08:30 Laboratory Results 08/04/16 04:15 08/03/16 03:45 08/04/16 08/05/16 08/06/16 05:59 05:59 05:59 Intake Total 300 1250 Output Total 1000 1550 Balance -700 -300 PT 20.4 SEC (12.0-15.0) H 07/27/16 04:35 INR 1.74 (0.83-1.16) H 07/27/16 04:35 ICD10 Worksheet Patient Problems: Problems Problem Status Onset Abdominal pain Acute Acute hyperactive alcohol withdrawal delirium Acute Alcohol dependence Acute Alcohol withdrawal Acute Colorectal cancer Acute Colorectal cancer, stage IV Acute Hematochezia Acute
--- NOTE | 2016-08-05 10:47 | PDIAF ---
- Diagnosis Diagnosis: Rectal Abscess Code Status: Full Code - Medication Management Discharge Medications: Medications to Continue on Transfer Pantoprazole Sodium [Protonix 40mg (*)] 40 mg PO DAILY 04/11/16 [Last Taken ] Tamsulosin HCl [Flomax 0.4 MG (*)] 0.4 mg PO DAILY 04/11/16 [Last Taken 07/25/16 ] Amoxicillin/Clavulanate Pot [Augmentin 875 MG TAB (*)] 875 mg PO BID #7 tab 07/19 [Last Taken Unknown] Sennosides/Docusate Sodium [Senokot-S] 1 tab PO BID #60 tab 08/05/16 [Last Taken Unknown] morphINE SR [MS Contin/Oramorph SR 30 mg (*)] 30 mg PO TID #60 tab 08/05/16 [ Last Taken Unknown] oxyCODONE IR [Oxycodone Ir (*)] 5 - 10 mg PO Q4 PRN #40 tab 08/05/16 [Last Taken Unknown] Painter Foreman Antibiotics: Augmentin 875mg PO bid Painter Foreman Antibiotic Stop Date: 08/08/16 Discharge Medications: Refer to the Discharge Home Medication list for PRN reason. PICC Care - Routine: N/A - Orders Services needed: Home Care, Registered Nurse (dressing changes) Home Care Face to Face: I certify that this patient was under my care and that I had the required [id number] encounter meeting the encounter requirements on the discharge day. My findings support the fact that the patient is homebound as defined in CMS Chapter 7 Medicare Benefits Manual 30.1.1, The condition of the patient is such that there exists a normal inability to leave home and consequently, leaving home would require a considerable and taxing effort. Diet Recommendation: no restrictions on diet Ball[place]: Not applicable Wound Care Instructions: Please address with Dr. Wood for full instructions Activity/Weight Bearing Restrictions: as tolerates - Follow Up Care Current Providers and Referrals: Patient,NotPresent [Primary Care Provider] - Cecil Grider MD [Medical Doctor] - Mathieu Wood MD [Medical Doctor] - 3-5 days
--- NOTE | 2016-08-05 10:58 | PDDCSUM ---
Discharge Summary Discharge Summary: DISCHARGE SUMMARY FOLLOW-UP ITEMS: Reassess wound at Dr. Wood clinic DATE OF ADMISSION: 07/26/2016 DATE OF DISCHARGE: 08/05/2016 DISCHARGE DIAGNOSES: 1. E coli rectal abscess 2. Acute hematochezia 3. Continuous opiate dependency 4. Rectal carcinoma, metastatic 5. Pancytopenia secondary to chemotherapy 6. Acute urinary retention CONSULTATIONS: Hematology Oncology, General surgery PROCEDURES / IMAGIN07/27/2016 perirectal abscess incision and drainage CHIEF COMPLAINT: Acute rectal pain SUBJECTIVE: Patient is feeling well at time of discharge, he continues to have some rectal pain but it has significantly improved and is well managed with his pain medications PHYSICAL EXAM ON DISCHARGE: Systolic blood pressure is 1/100, heart rate 80, afebrile overnight, satting well on room air, abdomen is soft nontender, bowel sounds are present, left- sided ostomy in place, brown stool LABS ON DISCHARGE: Hemoglobin 10.9, white blood cell count 6900, platelets [id number], creatinine 0.6, potassium 4.1 HOSPITAL COURSE BY PROBLEM: 1. E coli rectal abscess. Status post incision and drainage by Dr. Wood, the area has improved on CT scan from 08/01/2016. The patient initially received Invanz therapy and this was adjusted to Augmentin on 08/01 to complete a total 14 day course. He currently has dressing in place by General surgery, he will see Dr. Wood in the outpatient setting and will receive ongoing wound care at home. His steroids were discontinued secondary to need for wound healing. It was initially documented in the chart that the patient was experiencing sepsis but I believe that sepsis was not present as the patient did not meet either sepsis-2 or sepsis-3 criteria and his initial tachycardia was most likely secondary to pain and not systemic infection. 2. Metastatic rectal carcinoma. Patient is status post first-line chemotherapy , he will continue see Dr. Grider in the outpatient setting. 3. Acute hematochezia. Patient had bloody stool and this has improved status post I and D as outlined above. Patient is not currently experiencing any hematochezia or bloody stool in his ostomy bag. 4. Continuous opiate dependency. Patient has chronically been on MS Contin 15 mg twice daily, this has been up titrated to 30 mg twice daily secondary to acute pain experienced in the setting of above. He is also receiving oxycodone immediate release 5-10 mg for breakthrough control. He was provided with scripts for both these medications at time of discharge. He should receive ongoing pain management either General surgery or Hematology Oncology. 5. Pancytopenia secondary to chemotherapy. Patient is status post chemotherapy for above, his counts were uniformly all decreased on presentation, he has not required transfusions during this hospitalization and his counts have stabilized the further he has been out from chemotherapy. 6. Acute urinary retention. Secondary to immobility and narcotics. He required a Ballard catheter this has been discontinued successfully. DISCHARGE MEDICATIONS: Please see official discharge medication reconciliation sheet in chart , MS Contin 30 mg twice daily scheduled, as needed oxycodone 5-10 mg as needed, Augmentin 875 twice daily for 3 subsequent days. DISCHARGE INSTRUCTIONS: Patient should follow up at Dr. Wood clinic later this week, he will have ongoing home wound care. TIME SPENT: Greater than 30 minutes were spent on direct patient care, as well as discharge planning and preparation.
[2016-08-05 15:13] VITALS: BP 108/76; PULSE 84; TEMP 98.3; O2SAT 94
--- NOTE | 2016-08-27 05:40 | GOP ---
[f rep st] OPERATIVE REPORT DATE OF OPERATION: 07/27/2016 SURGEON: Mathieu Wood MD QUALITY CONTROL ASSISTANT: There was no clinical medical assistant. ANESTHESIOLOGIST: Dr. Lugo. PREOPERATIVE DIAGNOSIS: Perforated rectal cancer. POSTOPERATIVE DIAGNOSIS: Perforated rectal cancer. PROCEDURE PERFORMED: Exam under anesthesia, incision and drainage of perirectal abscess and rectal wall debridement. FINDINGS: Complete necrotic right lateral rectal wall with associated perirectal abscess and involv ed with rectal cancer. DESCRIPTION OF PROCEDURE: The patient was taken to the operating room where he received satisfactor y general endotracheal anesthesia by Dr. Lugo, placed in lithotomy position, prepped and draped in usual sterile fashion. A fluctuant area on the right buttock was aspirated with purulent material. It was then incised, entering a necrotic cavity which was irrigated clear. On rectal exam, it was clear that the rectal wall was missing on the right lateral side for a large 3 cm segment, which co mmunicated directly with the abscess. Wounds were thoroughly irrigated and debrided. A 1-inch Pen[place] drain was brought out the rectum, as well as out from the abscess incision site and connected ex ternally. Hemostasis was obtained. The wound was infiltrated with 0.5% Marcaine and dressed. He w as taken to the recovery room in good condition. /[id number]/MODL
== END 2016-08-05 17:44 | disposition home health service (06) | DRG 332 ==
LOC: F1N 16:56 → OBSVTOIN 17:56
PROVIDERS: ADMIT Internal Medicine; ATTEND Internal Medicine
PROC: 0DBP0ZZ Excision of Rectum, Open Approach (ICD-10-PCS; 2016-07-27)
PROC: 30233R1 Transfusion of Nonautologous Platelets into Peripheral Vein, Percutaneous Approach (ICD-10-PCS; 2016-07-27)
PROC: 0D9P0ZZ Drainage of Rectum, Open Approach (ICD-10-PCS; principal; 2016-07-27 13:50)
DX: K61.1 Rectal abscess (principal); K63.1 Perforation of intestine (nontraumatic); C78.7 Secondary malignant neoplasm of liver and intrahepatic bile duct; C20 Malignant neoplasm of rectum; D61.810 Antineoplastic chemotherapy induced pancytopenia; N40.0 Benign prostatic hyperplasia without lower urinary tract symptoms; F11.20 Opioid dependence, uncomplicated; R33.0 Drug induced retention of urine; T40.605A Adverse effect of unspecified narcotics, initial encounter; E87.6 Hypokalemia; Z93.3 Colostomy status; D69.6 Thrombocytopenia, unspecified; B96.20 Unspecified Escherichia coli [E. coli] as the cause of diseases classified elsewhere; F10.21 Alcohol dependence, in remission
CPT/HCPCS: 97166-GO; 97535-GO; J1170; J1200; J1335; J1642; J1650; J1885; J2250; J2405; J2704; J2765; J3010; P9035; Q9967

== ENCOUNTER 2016-09-01 10:56 | Inpatient (IN) | payer MEDICAID, OTHER ==
[2016-09-01] MEDS ORDERED: NS 1,000 ML IV ONE (11:12)
[2016-09-01] MEDS ORDERED: ONDANSETRON 4 MG/2 ML VIAL IVP ONE (11:12)
[2016-09-01] MEDS ORDERED: HYDROmorphONE/DILAUDID 1 MG/ML SYR IVP ONE (11:12)
--- NOTE | 2016-09-01 11:17 | EDPHY ---
H & P Stated Complaint: R Buttox Abcess HPI/ROS: CHIEF COMPLAINT: Buttock pain HISTORY OF PRESENT ILLNESS: Patient complains of increasing right buttock pain. This is a severe pain. Worse with any kind of palpation and movement. This is status post perirectal abscess incision and drainage with rectal debridement. This was on July 27. He was discharged home on August 05. The Hunter drain came out soon after that. He still has packing in place. He is scheduled for surgery on Friday to include prostatectomy and tumor debulking. He has had no fever or chills. He has had no nausea or vomiting. No generalized abdominal pain. There is some purulence from the wound. He has not been taking any antibiotics since just after discharge home. REVIEW OF SYSTEMS: Ten systems reviewed and are negative unless otherwise noted in the HPI PERTINENT MEDICAL HISTORY: EXAMINATION General Appearance: Alert, no distress Head: normocephalic, atraumatic Eyes: Pupils equal and round, no conjunctival pallor or injection ENT, Mouth: Mucous membranes moist Neck: Normal inspection, supple, non-tender Respiratory: Lungs are clear to auscultation. No wheezing, rhonchi or crackles. Cardiovascular: Tachycardic rate. Regular rhythm. No murmur. Gastrointestinal: Abdomen is soft and nontender. Ostomy present without complication. No tympany rigidity. Rectal exam: There is significant erythema, edema and fluctuance on the right perirectal buttock. There is packing in place. Some mild purulence. No bleeding. No fecal material present. Back: non-tender, no bony abnormalities Neurological: GCS 15 A&O, nonfocal Skin: Warm and dry, no rash. Erythema as noted above in the rectal exam Extremities: Nontender, no pedal edema Psychiatric: Mood and affect normal DIFFERENTIAL DIAGNOSES: Including but not limited to perirectal abscess, perianal abscess, cellulitis, edema, complication from rectal cancer MDM: 11:13 a.m. Increasing pain, induration swelling at the site of a previous perirectal abscesses status post incision and drainage and debridement. He is tachycardic and significant pain. Blood cultures and lactic acid ordered. Laboratory studies, pain medication and IV fluid been ordered. Will consult the establish surgeon Dr. Wood 11:17 a.m. I have discussed the case with Dr. Wood. He recommends repeat CT scan. 11:30 a.m. I discussed this with the patient. He informed me that he had a [facility] We have made multiple attempts to locate this imaging but are unable to do so. Informed Dr. Wood of this, he agrees that we do not need to perform another CT scan at this time. He would like patient admitted to his service. He recommends starting him on Invanz here in the emergency department. Previous to this recommendation and he has been admitted in stable condition. SUPERVISION: This patient was independently evaluated without direct examination by the attending physician. Case was discussed with attending physician. Case discussed with Dr. Ruiz Singer phone consultation with Dr. Mathieu Wood Source: Patient, Old records Exam Limitations: No limitations - Personal History Current Tetanus/Diphtheria Vaccine: Unsure Current Tetanus Diphtheria and Acellular Pertussis (TDAP): Unsure - Medical/Surgical History Hx Asthma: No Hx Chronic Respiratory Disease: No Hx Diabetes: No Hx Cardiac Disease: No Hx Renal Disease: No Hx Cirrhosis: No Hx Alcoholism: Yes Hx HIV/AIDS: No Hx Splenectomy or Spleen Trauma: No Other PMH: heavy alcohol use, colorectal ca. has PORT - Social History Smoking Status: Never smoked Constitutional: Initial Vital Signs Temperature (C) 98.2 F 09/01/16 10:58 Heart Rate 115 H 09/01/16 10:58 Respiratory Rate 18 09/01/16 10:58 Blood Pressure 109/70 09/01/16 10:58 O2 Sat (%) 94 09/01/16 10:58 O2 Delivery Mode Room Air Allergies/Adverse Reactions: No Known Allergies Allergy (Verified 09/01/16 10:57) Home Medications: Medication Instructions Recorded Pantoprazole Sodium [Protonix 40mg 40 mg PO DAILY 04/11/16 (*)] Tamsulosin HCl [Flomax 0.4 MG (*)] 0.4 mg PO DAILY 04/11/16 morphINE SR [MS Contin/Oramorph SR 30 mg PO TID #60 tab 08/05/16 30 mg (*)] Docusate Sodium [Colace 100 MG (*)] 100 mg PO DAILY PRN 08/29/16 oxyCODONE IR [Oxycodone Ir (*)] 10 mg PO Q4 PRN 08/29/16 Departure - Departure Disposition: [facility] In[facility] Acute Clinical Impression: Perirectal abscess, Rectal cancer Condition: Good Referrals: NONE *PRIMARY CARE P,. [Primary Care Provider] - As per Instructions
[2016-09-01] MEDS ORDERED: IOPAMIDOL (ISOVUE-300) 100 ML BTL IV ONE (11:22)
[2016-09-01] MEDS ORDERED: ERTAPENEM 1 GM in NS 100 ML IV ONE (11:30)
[2016-09-01 11:43] LABS: % IMMATURE GRANULYOCYTES 0.8 % (0.0-1.1); ABSOLUTE IMMATURE GRANULOCYTES 0.09 10^3/uL (0.00-0.10); ADD DIFF? NO; ADD MORPH? NO; ADD SCAN? NO; ATYPICAL LYMPHOCYTE FLAG 0 (0-99); FRAGMENT RBC FLAG 0 (0-99); HEMATOCRIT 35.1 % (40.0-51.0); HEMOGLOBIN 11.3 g/dL (13.7-17.5); LEFT SHIFT FLG 0 (0-99); LIPEMIA HEMOLYSIS FLAG 80 (0-99); MEAN CELL HEMOGLOBIN CONCENTR. 32.2 g/dL (32.4-36.7); MEAN CELL VOLUME 83.8 fL (81.5-99.8); MEAN PLATELET VOLUME 9.9 fL (8.7-11.7); PLATELET CLUMPS FLAG 10 (0-99); PLATELET COUNT 178 10^3/uL (150-400); RED BLOOD CELL COUNT 4.19 10^6/uL (4.40-6.38); RED CELL DISTRIBUTION WIDTH 15.5 % (11.5-15.2)
[2016-09-01 11:56] LABS: INR 1.26 (0.83-1.16); PROTIME(PATIENT) 15.8 SEC (12.0-15.0)
[2016-09-01 11:57] LABS: APTT 38.7 SEC (23.0-38.0)
[2016-09-01 11:59] LABS: ANION GAP 8 mEq/L (8-16); BILIRUBIN,TOTAL 1.9 mg/dL (0.1-1.4); CALCIUM 8.2 mg/dL (8.5-10.4); CARBON DIOXIDE 27 mEq/l (22-31); CHLORIDE 96 mEq/L (97-110); CREATININE 0.5 mg/dL (0.7-1.3); GLOMERULAR FILTRATION RATE > 60; GLUCOSE 112 mg/dL (70-100); POTASSIUM 3.4 mEq/L (3.5-5.2); SODIUM 131 mEq/L (134-144)
[2016-09-01] MEDS: HYDROmorphONE/DILAUDID 1 MG/ML SYR IVP PRN ×3 (14:27→18:27)
[2016-09-01] MEDS ORDERED: BACITRACIN 50,000 UNITS/10 ML SYR IRR ONE (14:39)
[2016-09-01] MEDS ORDERED: BUPIVACAINE 0.5% 30 ML SDV ONE (14:39)
[2016-09-01] MEDS ORDERED: MIDAZOLAM 2 MG/2 ML VIAL ONE (15:04)
[2016-09-01] MEDS ORDERED: fentaNYL 250 MCG/5 ML INJ ONE (15:07)
[2016-09-01] MEDS ORDERED: PROPOFOL/EMULSION 500 MG/50 ML BOTTLE IV ONE (15:07)
[2016-09-01] MEDS ORDERED: SUCCINYLCHOLINE CHLORIDE*ANESTHESIA ONLY*200 MG/10 ML SYR IVP ONE (15:09)
--- NOTE | 2016-09-01 15:36 | GHP ---
[f rep st] PREOP HISTORY AND PHYSICAL DATE OF ADMISSION: 09/01/2016 A 45-year-old male, known to me, with rectal cancer, which has perforated into the right perirectal space. He is admitted at this time for an I and D, as he has recurrent cellulitis and pain. He has had this previously I and D's, and is actually scheduled for an abdominoperineal resection. He has had a previous colostomy diverting this already. Risks and options have been fully discussed, and he wishes to proceed. ALLERGIES: None. MEDICATIONS: Protonix, Flomax, MS Contin, Colace, and oxycodone. REVIEW OF SYSTEMS: Negative for any major cardiopulmonary troubles, and full complete 10-point revi ew of systems. SOCIAL HISTORY: Does not smoke. PHYSICAL EXAMINATION: GENERAL: An alert 45-year-old male, who is in some discomfort. VITAL SIGNS: He is afebrile, blood pressure 110/70, pulse of 115. HEAD AND NECK: Clear without icterus or marcia nopathy. CHEST: Clear. CARDIAC: Regular rhythm. ABDOMEN: Soft, nontender. He has an ostomy. RECTAL: Significant erythema and tenderness in the right perirectal area near the previous drainage site. EXTREMITIES: Benign with full pulses. IMPRESSION: Recurrent perirectal abscess. PLAN: Exam under anesthesia and I and D. Risks and options have been fully discussed, and he wishe s to proceed. /[id number]/MODL
[2016-09-01] MEDS ORDERED: ROCURONIUM 50 MG/5 ML VIAL ONE (15:37)
[2016-09-01] MEDS ORDERED: HYDROmorphONE/DILAUDID 2 MG/ML INJ ONE (15:39)
[2016-09-01] MEDS ORDERED: ONDANSETRON 4 MG/2 ML VIAL ONE (15:41)
[2016-09-01] MEDS ORDERED: METOCLOPRAMIDE 10 MG/2 ML VIAL ONE (15:42)
--- NOTE | 2016-09-01 16:06 | GOP ---
[f rep st] OPERATIVE REPORT DATE OF OPERATION: 09/01/2016 SURGEON: Mathieu Wood MD PREOPERATIVE DIAGNOSIS: Rectal cancer, perforation, with perirectal abscess. POSTOPERATIVE DIAGNOSIS: Rectal cancer, perforation, with perirectal abscess. PROCEDURE PERFORMED: Incision and drainage of the recurrent perirectal abscess. FINDINGS: The patient was still found to have a perforation in the wall of the rectum with an enlar ging tumor nodule palpable. He had a fair amount of erythema and inflammation around the previous I and D site with some pockets of purulence. DESCRIPTION OF PROCEDURE: The patient was taken to the operating room, where he received satisfacto ry general endotracheal anesthesia by Dr. Lugo. He was placed in the lithotomy position, prepped and draped in the usual sterile fashion. The previous I and D site was opened with electrocautery. Some purulent material was suctioned free. The perforation in the wall of the rectum was identifie d. A htaaexk-gec-mdxiudt 1-inch [place] drain was passed transanally and through the defect into th e abscess cavity, and brought out to the outside, forming a loop. It was secured in place with a 3- 0 nylon suture. He tolerated the procedure well. He was taken to the recovery room in good conditi on. The wound was infiltrated with 0.5% Marcaine prior to closure. /[id number]/MODL
--- NOTE | 2016-09-01 17:16 | POSTOPPROG ---
Post Op Note Date of Operation: 09/01/16 Surgeon: Mathieu Wood Anesthesiologist: ROB LOREDO Anesthesia: GET(General Endotracheal) Pre-op Diagnosis: RECTAL CANCER PERFORATION WITH PERIRECTAL ABSCESS Post-op Diagnosis: SAME Indication: RECURRENT ABSCESS AND PAIN Procedure: EXAM UNDER ANESTHESIA AN I AND D AND DRAINAGE OF PERIRECTAL ABSCESS Findings: REACCUMULATION OF PURULENT MATERIAL HAND THE PERIRECTAL SPACE Inf/Abcess present in the surg proc area at time of surgery?: Yes Depth: Organ Space EBL: Minimal Complications: NONE Drains: Hunter
[2016-09-01] MEDS: D5W 1/2 NS W/ 20 KCl/L 1,000 ML IV SCH (18:23)
[2016-09-01] MEDS: KETOROLAC 15 MG/1 ML SDV IVP SCH (18:23)
[2016-09-01] MEDS: OXYCODONE/APAP 5/325 TAB PO PRN (19:34)
[2016-09-01] MEDS: morphINE SR 30 MG TAB PO SCH (22:01)
[2016-09-02] MEDS: KETOROLAC 15 MG/1 ML SDV IVP SCH ×5 (00:01→23:50)
[2016-09-02] MEDS: OXYCODONE/APAP 5/325 TAB PO PRN ×5 (02:59→23:16)
[2016-09-02 06:25] LABS: ABSOLUTE IMMATURE GRANULOCYTES 0.06 10^3/uL (0.00-0.10); ADD DIFF? NO; ADD MORPH? NO; ADD SCAN? NO; ATYPICAL LYMPHOCYTE FLAG 30 (0-99); FRAGMENT RBC FLAG 0 (0-99); HEMATOCRIT 31.3 % (40.0-51.0); HEMOGLOBIN 9.9 g/dL (13.7-17.5); LEFT SHIFT FLG 0 (0-99); LIPEMIA HEMOLYSIS FLAG 80 (0-99); MEAN CELL HEMOGLOBIN 27.1 pg (27.9-34.1); MEAN CELL HEMOGLOBIN CONCENTR. 31.6 g/dL (32.4-36.7); MEAN CELL VOLUME 85.8 fL (81.5-99.8); PLATELET CLUMPS FLAG 10 (0-99); PLATELET COUNT 128 10^3/uL (150-400); RED BLOOD CELL COUNT 3.65 10^6/uL (4.40-6.38); RED CELL DISTRIBUTION WIDTH 15.2 % (11.5-15.2)
[2016-09-02 06:33] LABS: INR 1.3 (0.83-1.16); PROTIME(PATIENT) 16.2 SEC (12.0-15.0)
[2016-09-02] MEDS: HYDROmorphONE/DILAUDID 1 MG/ML SYR IVP PRN ×5 (08:38→22:16)
[2016-09-02] MEDS: TAMSULOSIN HCL 0.4 MG CAP PO SCH (08:39)
[2016-09-02] MEDS: DOCUSATE SODIUM 100 MG CAP PO SCH (08:39)
[2016-09-02] MEDS: morphINE SR 30 MG TAB PO SCH ×3 (08:39→21:47)
[2016-09-02] MEDS: PANTOPRAZOLE SODIUM 40 MG TAB PO SCH (08:39)
[2016-09-02] MEDS: ERTAPENEM 1 GM in NS 100 ML IV SCH (08:41)
--- NOTE | 2016-09-02 09:45 | SOAPPROG ---
SOAP Progress Note Assessment/Plan: Assessment/Plan: 45 Y M metastatic rectal CA, s/p I&D of recurrent perirectal abscess. Plan for OR tomorrow for APR. Will likely leave wound open and use wound vac. Patient understands this. No chemical VTE ppx, NPO p midnight, continue abx. S: not much pain. feels ready to move forward with surgery. O: gen: alert, nad heent: mmm, no jaundice pulm: ctab cor: rrr abd: soft, +ostomy gen: did not directly view wound today 09/02/16 09:43 Objective: Vital Signs Temp Pulse Resp BP Pulse Ox 36.4 C 78 16 101/70 95 09/02/16 08:30 09/02/16 08:30 09/02/16 08:30 09/02/16 08:30 09/02/16 08:30 Laboratory Results 09/02/16 06:05 09/01/16 11:33 09/01/16 09/02/16 09/03/16 05:59 05:59 05:59 Intake Total 2289 Output Total 5 Balance 2284 PT 16.2 SEC (12.0-15.0) H 09/02/16 06:05 INR 1.30 (0.83-1.16) H 09/02/16 06:05 ICD10 Worksheet Patient Problems: Problems Problem Status Onset Perirectal abscess Acute Rectal cancer Acute Abdominal pain Acute Acute hyperactive alcohol withdrawal delirium Acute Alcohol dependence Acute Alcohol withdrawal Acute Colorectal cancer Acute Colorectal cancer, stage IV Acute Hematochezia Acute
--- NOTE | 2016-09-02 11:11 | SOAPPROG ---
SOAP Progress Note Assessment/Plan: Assessment: more comfortable/ abd soft/ minimal drainage/ afebrile Plan:proceed with APR in am / will leave open with wound vac 09/02/16 11:10 Objective: Vital Signs Temp Pulse Resp BP Pulse Ox 36.4 C 78 16 101/70 95 09/02/16 08:30 09/02/16 08:30 09/02/16 08:30 09/02/16 08:30 09/02/16 08:30 Laboratory Results 09/02/16 06:05 09/01/16 11:33 09/01/16 09/02/16 09/03/16 05:59 05:59 05:59 Intake Total 2289 Output Total 5 Balance 2284 PT 16.2 SEC (12.0-15.0) H 09/02/16 06:05 INR 1.30 (0.83-1.16) H 09/02/16 06:05 ICD10 Worksheet Patient Problems: Problems Problem Status Onset Perirectal abscess Acute Rectal cancer Acute Abdominal pain Acute Acute hyperactive alcohol withdrawal delirium Acute Alcohol dependence Acute Alcohol withdrawal Acute Colorectal cancer Acute Colorectal cancer, stage IV Acute Hematochezia Acute
[2016-09-02] MEDS: ONDANSETRON 4 MG/2 ML VIAL IVP PRN (22:15)
[2016-09-03] MEDS: LORazepam 2 MG/ML INJ IV PRN ×2 (00:24→12:38)
[2016-09-03] MEDS: D5W 1/2 NS W/ 20 KCl/L 1,000 ML IV SCH ×2 (01:43→21:18)
[2016-09-03] MEDS: KETOROLAC 15 MG/1 ML SDV IVP SCH ×3 (05:26→18:10)
[2016-09-03] MEDS ORDERED: BUPIVACAINE 0.5% 30 ML SDV ONE (06:57)
[2016-09-03] MEDS ORDERED: HEPARIN 1000 UNIT/1 ML MDV ONE ×2 (06:57→10:27)
[2016-09-03] MEDS ORDERED: ceFAZolin 1 GM/5 ML SYR ONE ×2 (06:58→10:27)
[2016-09-03] MEDS ORDERED: MIDAZOLAM 2 MG/2 ML VIAL ONE (07:36)
[2016-09-03] MEDS ORDERED: LIDOCAINE 2% 100 MG/5 ML SYR ONE (07:45)
[2016-09-03] MEDS ORDERED: fentaNYL 100 MCG/2 ML INJ ONE ×3 (07:45→11:38)
[2016-09-03] MEDS ORDERED: DEXAMETHASONE 4 MG/ML VIAL ONE (07:45)
[2016-09-03] MEDS ORDERED: ROCURONIUM 50 MG/5 ML VIAL ONE (07:45)
[2016-09-03] MEDS ORDERED: HYDROmorphONE/DILAUDID 2 MG/ML INJ ONE ×2 (07:45→11:38)
[2016-09-03] MEDS ORDERED: SUGAMMADEX SODIUM 200 MG/2 ML VIAL IVP ONE (07:45)
[2016-09-03] MEDS ORDERED: ONDANSETRON 4 MG/2 ML VIAL ONE (07:45)
[2016-09-03] MEDS ORDERED: PROPOFOL 200 MG/20 ML VIAL ONE (07:49)
[2016-09-03] MEDS ORDERED: ROCURONIUM 100 MG/10 ML VIAL ONE (08:53)
[2016-09-03] MEDS ORDERED: METOPROLOL TARTRATE 5 MG/5 ML INJ ONE ×2 (09:07)
[2016-09-03] MEDS ORDERED: PHENYLEPHRINE HCL 100 MCG/ML SYR ONE (10:13)
--- NOTE | 2016-09-03 11:05 | POSTOPPROG ---
Post Op Note Date of Operation: 09/03/16 Surgeon: Mathieu Wood Marketing Proposal Coordinator: Mary Murphy Anesthesiologist: Gentry Taylor Anesthesia: GET(General Endotracheal) Pre-op Diagnosis: metastatic rectal CA, recurrent perirectal abscess Post-op Diagnosis: same Procedure: laparoscopic APR with wound vac placement Findings: marked inflammation vs tumor right posterior lateral rectal wall Inf/Abcess present in the surg proc area at time of surgery?: No EBL: 600cc Complications: none Drains: Osmar Santana, Wound Vac Specimen(s): rectum to pathology
[2016-09-03] MEDS ORDERED: HYDROmorphONE/DILAUDID 1 MG/ML SYR ONE (11:16)
[2016-09-03] MEDS: HYDROmorphONE/DILAUDID 1 MG/ML SYR IVP PRN ×6 (12:27→21:19)
[2016-09-03] MEDS: morphINE SR 30 MG TAB PO SCH ×3 (12:33→21:21)
[2016-09-03] MEDS: ERTAPENEM 1 GM in NS 100 ML IV SCH (12:33)
[2016-09-03] MEDS: DOCUSATE SODIUM 100 MG CAP PO SCH (13:40)
[2016-09-03] MEDS: PANTOPRAZOLE SODIUM 40 MG TAB PO SCH (13:41)
[2016-09-03] MEDS: OXYCODONE/APAP 5/325 TAB PO PRN ×2 (16:08→21:22)
[2016-09-03] MEDS: TAMSULOSIN HCL 0.4 MG CAP PO SCH (16:15)
[2016-09-04] MEDS: KETOROLAC 15 MG/1 ML SDV IVP SCH ×4 (00:55→18:26)
[2016-09-04] MEDS: HYDROmorphONE/DILAUDID 1 MG/ML SYR IVP PRN ×3 (00:56→14:56)
[2016-09-04] MEDS: OXYCODONE/APAP 5/325 TAB PO PRN ×4 (01:06→18:42)
[2016-09-04] MEDS: D5W 1/2 NS W/ 20 KCl/L 1,000 ML IV SCH ×2 (06:26→18:42)
[2016-09-04] MEDS: morphINE SR 30 MG TAB PO SCH ×3 (09:21→21:18)
[2016-09-04] MEDS: ERTAPENEM 1 GM in NS 100 ML IV SCH (09:21)
[2016-09-04] MEDS: PANTOPRAZOLE SODIUM 40 MG TAB PO SCH (09:21)
[2016-09-04] MEDS: DOCUSATE SODIUM 100 MG CAP PO SCH (09:21)
[2016-09-04] MEDS: TAMSULOSIN HCL 0.4 MG CAP PO SCH (09:21)
--- NOTE | 2016-09-04 14:21 | SOAPPROG ---
SOAP Progress Note Assessment/Plan: Assessment/Plan: 45 Y M metastatic rectal CA, s/p I&D of recurrent perirectal abscess. s/p APR. Plan for wound vac change on Friday in OR. Pathology pending. Continue routine post op care. S: Pain controlled. O: gen: alert, nad heent: mmm, no jaundice pulm: ctab cor: rrr abd: soft, +ostomy gen: vac to suction 09/04/16 14:19 Objective: Vital Signs Temp Pulse Resp BP Pulse Ox 36.6 C 76 16 100/68 98 09/04/16 11:52 09/04/16 11:52 09/04/16 11:52 09/04/16 11:52 09/04/16 11:52 Laboratory Results 09/02/16 06:05 09/01/16 11:33 09/03/16 09/04/16 09/05/16 05:59 05:59 05:59 Intake Total 1500 4404 2700 Output Total 2525 595 Balance 1500 1879 2105 PT 16.2 SEC (12.0-15.0) H 09/02/16 06:05 INR 1.30 (0.83-1.16) H 09/02/16 06:05 ICD10 Worksheet Patient Problems: Problems Problem Status Onset Perirectal abscess Acute Rectal cancer Acute Abdominal pain Acute Acute hyperactive alcohol withdrawal delirium Acute Alcohol dependence Acute Alcohol withdrawal Acute Colorectal cancer Acute Colorectal cancer, stage IV Acute Hematochezia Acute
--- NOTE | 2016-09-04 17:05 | GOP ---
[f rep st] OPERATIVE REPORT DATE OF OPERATION: 09/03/2016 SURGEON: Mathieu Wood MD REAM CUTTER: KEDAR Alcala ANESTHESIA: Dr. Taylor PREOPERATIVE DIAGNOSIS: Perforated rectal cancer. POSTOPERATIVE DIAGNOSIS: Perforated rectal cancer with perirectal abscess. PROCEDURE PERFORMED: Laparoscopic abdominoperineal resection with placement of wound VAC. FINDINGS: Patient was found to have a large multifocal mass in the rectum, which had penetrated through the posterior and lateral rectal wall with associated perirectal abscess. There were no obvious metastases intra- abdominally. ESTIMATED BLOOD LOSS: 400 cc. DESCRIPTION OF PROCEDURE: The patient was taken to the operating room, where he received satisfactory general endotracheal anesthesia by Dr. Taylor. He was placed in supine position in low stirrups, prepped and draped in the usual sterile fashion. A Veress needle was inserted through a small incision above the umbilicus. Good visualization was obtained. Three other trocars were placed under direct vision. Adhesions were taken down. The small bowel was freed up and retracted up back in the upper abdomen. The ostomy was in place and appeared to be functioning well. The rectal stump was identified. The peritoneum on either side of the rectal stump was opened with the Harmonic Scalpel. The presacral space was entered and dissection extended posteriorly down as far as possible down into the presacral space. The lateral stalks were divided with the Harmonic Scalpel with a wide dissection. Dissection was quite difficult as the planes were all obliterated by the inflammatory reaction as well as the reaction to the tumor. The pelvic wall was basically skeletonized below the ureters all the way down as far as we could reach from above. Anteriorly, we dissected off the prostate and seminal vesicles, with dissection extended distally as far as possible. At that point, attention was turned to the anus. A circular incision was made to include the abscess cavity and the entire anus. Dissection extended into the posterior rectal space. This was extended with electrocautery and the Harmonic scalpel. Levators were divided circumferentially. The abscess cavity was excised in continuity with the colon wall. Dissection continued anteriorly Around the back of the prostate gland until the attached specimen was freed and could be removed and brought out through the anal incision. The wound was irrigated. Hemostasis was assured. The wound was temporarily closed with a running Prolene suture. Gloves and gowns were changed, and we returned back to the open abdomen. The pelvis was irrigated profusely and hemostasis was assured. There was no remaining peritoneum to direct closure, and there was no significant omentum to bring down into the pelvis as an omental pedicle flap. A 15 round silicone ASYA drain was brought out through one of the trocar sites and placed in the pelvis, secured to the skin with a silk suture. I then turned back to the anal incision, and sutures were removed. A wound VAC was placed in the anal wound using a plastic nonadherent drape into the wound, and then the wound VAC was placed over this and secured in place with good seal and good function. The upper abdomen trocars were then removed under direct vision, and the trocar sites were closed with 4-0 Vicryl subcuticular sutures. All wounds were infiltrated with 0.5% Marcaine, including the anus. He tolerated the procedure well, was taken to the recovery room in satisfactory condition. COMPLICATIONS: None. /[id number]/MODL MTDD
[2016-09-05] MEDS: KETOROLAC 15 MG/1 ML SDV IVP SCH ×4 (00:02→18:30)
[2016-09-05] MEDS: OXYCODONE/APAP 5/325 TAB PO PRN ×6 (00:02→21:54)
[2016-09-05] MEDS: HYDROmorphONE/DILAUDID 1 MG/ML SYR IVP PRN ×2 (09:26→20:29)
[2016-09-05] MEDS: TAMSULOSIN HCL 0.4 MG CAP PO SCH (09:29)
[2016-09-05] MEDS: PANTOPRAZOLE SODIUM 40 MG TAB PO SCH (09:29)
[2016-09-05] MEDS: DOCUSATE SODIUM 100 MG CAP PO SCH (09:29)
[2016-09-05] MEDS: morphINE SR 30 MG TAB PO SCH ×3 (09:29→21:50)
[2016-09-05] MEDS: ERTAPENEM 1 GM in NS 100 ML IV SCH (09:29)
[2016-09-05] MEDS: ONDANSETRON 4 MG/2 ML VIAL IVP PRN (10:25)
--- NOTE | 2016-09-05 20:59 | SOAPPROG ---
SOAP Progress Note Assessment/Plan: Assessment: more comfortable/ abd soft/ minimal drainage/ afebrile Plan:proceed with APR in am / will leave open with wound vac 09/02/16 11:10 09/05/16 20:56 HE IS DOING QUITE WELL POSTOP / AFEBRILE / 500 CC OF SEROUS DRAINAGE / HEMATOCRIT 31 / PLAN IS WOUND VAC CHANGE IN THE MORNING RISKS AND OPTIONS BEEN FULLY DISCUSSED AND HE WISHES TO PROCEED Objective: Vital Signs Temp Pulse Resp BP Pulse Ox 36.3 C 92 18 99/60 L 97 09/05/16 19:55 09/05/16 19:55 09/05/16 19:55 09/05/16 19:55 09/05/16 19:55 Laboratory Results 09/02/16 06:05 09/01/16 11:33 09/04/16 09/05/16 09/06/16 05:59 05:59 05:59 Intake Total 4404 5109 750 Output Total 2525 2305 1300 Balance 1879 2804 -550 PT 16.2 SEC (12.0-15.0) H 09/02/16 06:05 INR 1.30 (0.83-1.16) H 09/02/16 06:05 ICD10 Worksheet Patient Problems: Problems Problem Status Onset Perirectal abscess Acute Rectal cancer Acute Abdominal pain Acute Acute hyperactive alcohol withdrawal delirium Acute Alcohol dependence Acute Alcohol withdrawal Acute Colorectal cancer Acute Colorectal cancer, stage IV Acute Hematochezia Acute
[2016-09-05] MEDS: D5W 1/2 NS W/ 20 KCl/L 1,000 ML IV SCH (21:55)
[2016-09-06] MEDS: KETOROLAC 15 MG/1 ML SDV IVP SCH ×3 (00:05→16:44)
[2016-09-06] MEDS: OXYCODONE/APAP 5/325 TAB PO PRN ×3 (03:44→20:09)
[2016-09-06 03:57] LABS: % IMMATURE GRANULYOCYTES 0.5 % (0.0-1.1); ABSOLUTE IMMATURE GRANULOCYTES 0.02 10^3/uL (0.00-0.10); ADD DIFF? NO; ADD MORPH? YES; ADD SCAN? NO; ATYPICAL LYMPHOCYTE FLAG 50 (0-99); FRAGMENT RBC FLAG 0 (0-99); HEMATOCRIT 19.7 % (40.0-51.0); LEFT SHIFT FLG 0 (0-99); LIPEMIA HEMOLYSIS FLAG 80 (0-99); MEAN CELL HEMOGLOBIN 26.8 pg (27.9-34.1); MEAN CELL HEMOGLOBIN CONCENTR. 31.5 g/dL (32.4-36.7); MEAN CELL VOLUME 85.3 fL (81.5-99.8); MEAN PLATELET VOLUME 10.3 fL (8.7-11.7); PLATELET CLUMPS FLAG 0 (0-99); PLATELET COUNT 126 10^3/uL (150-400); RED BLOOD CELL COUNT 2.31 10^6/uL (4.40-6.38); RED CELL DISTRIBUTION WIDTH 14.7 % (11.5-15.2)
[2016-09-06 04:27] LABS: HEMOGLOBIN 6.2 g/dL (13.7-17.5)
[2016-09-06 04:31] LABS: ALANINE AMINOTRANSFERASE 25 IU/L (21-72); ALBUMIN 1.9 g/dL (3.5-5.0); ALKALINE PHOSPHATASE 160 IU/L (38-126); ANION GAP 3 mEq/L (8-16); ASPARTATE AMINOTRANSFERASE 45 IU/L (17-59); BILIRUBIN,TOTAL 0.5 mg/dL (0.1-1.4); BILIRUBIN-CONJUGATED 0.4 mg/dL (0.0-0.5); BILIRUBIN-UNCONJUGATED 0.1 mg/dL (0.0-1.1); CALCIUM 7.5 mg/dL (8.5-10.4); CARBON DIOXIDE 26 mEq/l (22-31); CHLORIDE 107 mEq/L (97-110); CREATININE 0.5 mg/dL (0.7-1.3); GLOMERULAR FILTRATION RATE > 60; GLUCOSE 85 mg/dL (70-100); SODIUM 136 mEq/L (134-144); TOTAL PROTEIN 4.4 g/dL (6.3-8.2)
[2016-09-06 05:15] LABS: PLATELET ESTIMATE DECREASED (ADEQ)
[2016-09-06 05:17] LABS: MICROCYTES 1+
[2016-09-06] MEDS: HYDROmorphONE/DILAUDID 1 MG/ML SYR IVP PRN ×2 (07:36→11:08)
[2016-09-06] MEDS: ERTAPENEM 1 GM in NS 100 ML IV SCH (07:47)
[2016-09-06] MEDS: PANTOPRAZOLE SODIUM 40 MG TAB PO SCH (09:39)
[2016-09-06] MEDS: morphINE SR 30 MG TAB PO SCH ×3 (09:40→22:45)
[2016-09-06] MEDS: TAMSULOSIN HCL 0.4 MG CAP PO SCH (09:40)
[2016-09-06] MEDS: DOCUSATE SODIUM 100 MG CAP PO SCH (09:40)
[2016-09-06] MEDS ORDERED: fentaNYL 100 MCG/2 ML INJ ONE (13:55)
[2016-09-06] MEDS: GABAPENTIN 300 MG CAP PO SCH ×2 (17:16→22:45)
--- NOTE | 2016-09-06 21:50 | POSTOPPROG ---
Post Op Note Date of Operation: 09/06/16 Surgeon: Mathieu Wood Anesthesiologist: luna Anesthesia: GET(General Endotracheal) Pre-op Diagnosis: perforated rectal cancer Post-op Diagnosis: same Procedure: wound exploration debridement and wound VAC change Findings: clean perineal wound Inf/Abcess present in the surg proc area at time of surgery?: Yes Depth: Deep Incisional (Fascial) EBL: Minimal Complications: none Drains: Wound Vac
[2016-09-06] MEDS: D5W 1/2 NS W/ 20 KCl/L 1,000 ML IV SCH (23:14)
[2016-09-07] MEDS: OXYCODONE/APAP 5/325 TAB PO PRN ×5 (00:30→20:44)
[2016-09-07] MEDS: ERTAPENEM 1 GM in NS 100 ML IV SCH (08:52)
[2016-09-07] MEDS: TAMSULOSIN HCL 0.4 MG CAP PO SCH (08:52)
[2016-09-07] MEDS: DOCUSATE SODIUM 100 MG CAP PO SCH (08:52)
[2016-09-07] MEDS: morphINE SR 30 MG TAB PO SCH ×3 (08:52→21:29)
[2016-09-07] MEDS: GABAPENTIN 300 MG CAP PO SCH ×3 (08:52→21:29)
[2016-09-07] MEDS: PANTOPRAZOLE SODIUM 40 MG TAB PO SCH (08:54)
[2016-09-07 09:49] LABS: % IMMATURE GRANULYOCYTES 0.8 % (0.0-1.1); ABSOLUTE IMMATURE GRANULOCYTES 0.04 10^3/uL (0.00-0.10); ADD DIFF? NO; ADD MORPH? NO; ADD SCAN? NO; ATYPICAL LYMPHOCYTE FLAG 20 (0-99); FRAGMENT RBC FLAG 0 (0-99); HEMATOCRIT 25.5 % (40.0-51.0); HEMOGLOBIN 8.3 g/dL (13.7-17.5); LEFT SHIFT FLG 0 (0-99); LIPEMIA HEMOLYSIS FLAG 80 (0-99); MEAN CELL HEMOGLOBIN 26.9 pg (27.9-34.1); MEAN CELL HEMOGLOBIN CONCENTR. 32.5 g/dL (32.4-36.7); MEAN CELL VOLUME 82.5 fL (81.5-99.8); PLATELET CLUMPS FLAG 0 (0-99); PLATELET COUNT 139 10^3/uL (150-400); RED BLOOD CELL COUNT 3.09 10^6/uL (4.40-6.38); RED CELL DISTRIBUTION WIDTH 15.9 % (11.5-15.2)
[2016-09-07] MEDS: HYDROmorphONE/DILAUDID 1 MG/ML SYR IVP PRN (12:36)
[2016-09-07] MEDS: D5W 1/2 NS W/ 20 KCl/L 1,000 ML IV SCH (12:38)
--- NOTE | 2016-09-07 13:21 | SOAPPROG ---
SOAP Progress Note Assessment/Plan: Assessment: 45yo M with metastatic rectal CA, s/p I&D of recurrent perirectal abscess. s/p APR. Pain improved this morning after adding Gabapentin Wound vac to suction - plan change friday Regular diet Ambulation and IS Continue ASYA drain to bulb suction Acute blood loss anemia s/p 2u PRBC - Hgb improved. will continue to monitor Dispo: inpatient for complicated wound care. S: Pain improved. No complaints this morning O: lying in bed, comfortable, no acute distress Clear to auscultation bilaterally, no increased work of breathing Regular rate and rhythm Positive bowel sounds throughout, soft, nondistended, nontender, ostomy ASYA drain serous Wound VAC to suction. No surrounding erythema. Objective: Vital Signs Temp Pulse Resp BP Pulse Ox 36.7 C 74 16 118/79 99 09/07/16 12:00 09/07/16 12:00 09/07/16 12:00 09/07/16 12:00 09/07/16 12:00 Microbiology 09/01/16 11:55 Blood Culture - Final Blood 09/01/16 11:33 Blood Culture - Final Blood Laboratory Results 09/07/16 09:40 09/06/16 03:50 09/06/16 09/07/16 09/08/16 05:59 05:59 05:59 Intake Total 1684 1226 Output Total 2305 2220 160 Balance -621 -994 -160 PT 16.2 SEC (12.0-15.0) H 09/02/16 06:05 INR 1.30 (0.83-1.16) H 09/02/16 06:05 ICD10 Worksheet Patient Problems: Problems Problem Status Onset Perirectal abscess Acute Rectal cancer Acute Abdominal pain Acute Acute hyperactive alcohol withdrawal delirium Acute Alcohol dependence Acute Alcohol withdrawal Acute Colorectal cancer Acute Colorectal cancer, stage IV Acute Hematochezia Acute
[2016-09-08] MEDS: D5W 1/2 NS W/ 20 KCl/L 1,000 ML IV SCH ×2 (01:00→14:08)
[2016-09-08] MEDS: OXYCODONE/APAP 5/325 TAB PO PRN ×5 (03:25→20:18)
[2016-09-08] MEDS: PANTOPRAZOLE SODIUM 40 MG TAB PO SCH (08:08)
[2016-09-08] MEDS: GABAPENTIN 300 MG CAP PO SCH ×3 (08:08→21:52)
[2016-09-08] MEDS: morphINE SR 30 MG TAB PO SCH ×3 (08:08→21:52)
[2016-09-08] MEDS: DOCUSATE SODIUM 100 MG CAP PO SCH (08:08)
[2016-09-08] MEDS: ERTAPENEM 1 GM in NS 100 ML IV SCH (08:08)
[2016-09-08] MEDS: TAMSULOSIN HCL 0.4 MG CAP PO SCH (08:08)
--- NOTE | 2016-09-08 12:10 | SOAPPROG ---
SOAP Progress Note Assessment/Plan: Assessment: 45yo M with metastatic rectal CA, s/p I&D of recurrent perirectal abscess. s/p APR. Pain improved this morning after adding Gabapentin Wound vac to suction - increased drainage overnight. will reeval in OR tomorrow Plan OR tomorrow for wound vac change with sedation - NPO after midnight Regular diet, NPO after midnight Ambulation and IS Continue ASYA drain to bulb suction Acute blood loss anemia s/p 2u PRBC - recheck labs in am Dispo: inpatient for complicated wound care. S: Pain controlled. Not very hungry. No complaints this morning O: lying in bed, comfortable, no acute distress no increased work of breathing Positive bowel sounds throughout, soft, nondistended, nontender, ostomy ASYA drain serous Wound VAC to suction. No surrounding erythema. Objective: Vital Signs Temp Pulse Resp BP Pulse Ox 36.6 C 70 16 100/70 94 09/08/16 11:23 09/08/16 08:00 09/08/16 08:00 09/08/16 08:00 09/08/16 08:00 Microbiology 09/01/16 11:55 Blood Culture - Final Blood 09/01/16 11:33 Blood Culture - Final Blood Laboratory Results 09/07/16 09:40 09/06/16 03:50 09/07/16 09/08/16 09/09/16 05:59 05:59 05:59 Intake Total 1226 2709 Output Total 3618 3762 Balance -994 -926 PT 16.2 SEC (12.0-15.0) H 09/02/16 06:05 INR 1.30 (0.83-1.16) H 09/02/16 06:05 ICD10 Worksheet Patient Problems: Problems Problem Status Onset Perirectal abscess Acute Rectal cancer Acute Abdominal pain Acute Acute hyperactive alcohol withdrawal delirium Acute Alcohol dependence Acute Alcohol withdrawal Acute Colorectal cancer Acute Colorectal cancer, stage IV Acute Hematochezia Acute
[2016-09-08] MEDS: HYDROmorphONE/DILAUDID 1 MG/ML SYR IVP PRN ×2 (15:35→21:58)
[2016-09-09] MEDS: OXYCODONE/APAP 5/325 TAB PO PRN ×4 (00:35→17:31)
[2016-09-09] MEDS: D5W 1/2 NS W/ 20 KCl/L 1,000 ML IV SCH ×2 (03:13→20:08)
[2016-09-09 05:35] LABS: % IMMATURE GRANULYOCYTES 0.9 % (0.0-1.1); ABSOLUTE IMMATURE GRANULOCYTES 0.06 10^3/uL (0.00-0.10); ADD DIFF? NO; ADD MORPH? NO; ADD SCAN? NO; ATYPICAL LYMPHOCYTE FLAG 30 (0-99); FRAGMENT RBC FLAG 0 (0-99); HEMATOCRIT 29.2 % (40.0-51.0); HEMOGLOBIN 9.2 g/dL (13.7-17.5); LEFT SHIFT FLG 0 (0-99); LIPEMIA HEMOLYSIS FLAG 80 (0-99); MEAN CELL HEMOGLOBIN 26.4 pg (27.9-34.1); MEAN CELL HEMOGLOBIN CONCENTR. 31.5 g/dL (32.4-36.7); MEAN CELL VOLUME 83.9 fL (81.5-99.8); MEAN PLATELET VOLUME 9.7 fL (8.7-11.7); PLATELET CLUMPS FLAG 0 (0-99); PLATELET COUNT 189 10^3/uL (150-400); RED BLOOD CELL COUNT 3.48 10^6/uL (4.40-6.38); RED CELL DISTRIBUTION WIDTH 15.8 % (11.5-15.2)
[2016-09-09 06:05] LABS: ALANINE AMINOTRANSFERASE 30 IU/L (21-72); ALKALINE PHOSPHATASE 257 IU/L (38-126); ANION GAP 5 mEq/L (8-16); ASPARTATE AMINOTRANSFERASE 47 IU/L (17-59); BILIRUBIN,TOTAL 0.5 mg/dL (0.1-1.4); CALCIUM 7.8 mg/dL (8.5-10.4); CARBON DIOXIDE 26 mEq/l (22-31); CHLORIDE 105 mEq/L (97-110); CREATININE 0.5 mg/dL (0.7-1.3); GLOMERULAR FILTRATION RATE > 60; GLUCOSE 89 mg/dL (70-100); POTASSIUM 4.1 mEq/L (3.5-5.2); SODIUM 136 mEq/L (134-144); TOTAL PROTEIN 4.9 g/dL (6.3-8.2)
[2016-09-09] MEDS: ERTAPENEM 1 GM in NS 100 ML IV SCH (08:38)
[2016-09-09] MEDS: HYDROmorphONE/DILAUDID 1 MG/ML SYR IVP PRN ×2 (08:39→16:21)
[2016-09-09] MEDS: morphINE SR 30 MG TAB PO SCH ×3 (08:39→21:55)
[2016-09-09] MEDS: TAMSULOSIN HCL 0.4 MG CAP PO SCH (08:45)
[2016-09-09] MEDS: PANTOPRAZOLE SODIUM 40 MG TAB PO SCH (08:45)
[2016-09-09] MEDS: DOCUSATE SODIUM 100 MG CAP PO SCH (08:45)
[2016-09-09] MEDS: GABAPENTIN 300 MG CAP PO SCH ×3 (08:51→21:55)
[2016-09-09] MEDS: ONDANSETRON 4 MG/2 ML VIAL IVP PRN (09:59)
[2016-09-09] MEDS ORDERED: BUPIVACAINE 0.5% 30 ML SDV ONE (13:38)
[2016-09-09] MEDS ORDERED: LIDOCAINE 1% 30 ML SDV ONE (13:38)
[2016-09-09] MEDS ORDERED: BUPIVACAINE/EPI 0.5% 30 ML SDV ONE (13:41)
[2016-09-09] MEDS ORDERED: MIDAZOLAM 2 MG/2 ML VIAL ONE (13:54)
[2016-09-09] MEDS ORDERED: DEXAMETHASONE 4 MG/ML VIAL ONE ×2 (14:02)
[2016-09-09] MEDS ORDERED: PROPOFOL/EMULSION 500 MG/50 ML BOTTLE IV ONE (14:02)
[2016-09-09] MEDS ORDERED: fentaNYL 100 MCG/2 ML INJ ONE ×2 (14:02→14:23)
[2016-09-09] MEDS ORDERED: LIDOCAINE 2% JELLY 5 ML TUBE ONE (14:03)
[2016-09-09] MEDS ORDERED: LIDOCAINE 2% 100 MG/5 ML SYR ONE (14:03)
[2016-09-09] MEDS ORDERED: ONDANSETRON 4 MG/2 ML VIAL ONE (14:03)
--- NOTE | 2016-09-09 16:40 | POSTOPPROG ---
Post Op Note Date of Operation: 09/09/16 Surgeon: Jed Arora Circulation Librarian: Mary Murphy Anesthesiologist: Gonzalez Kaplan Anesthesia: GET(General Endotracheal) Pre-op Diagnosis: metastatic rectal CA, recurrent perirectal abscesses, s/p APR c open wound Post-op Diagnosis: same Procedure: incisional debridement with wound vac change Findings: min granulation, min necrosis, no gross sign of infection Inf/Abcess present in the surg proc area at time of surgery?: Yes Depth: Deep Incisional (Fascial) EBL: Minimal Complications: none Drains: Wound Vac
[2016-09-09] MEDS ORDERED: NALOXONE HCL 0.4 MG/ML INJ IVP PRN (17:55)
[2016-09-09] MEDS: morphINE PCA 30 MG/30 ML PCA IV PRN ×2 (18:28→21:09)
--- NOTE | 2016-09-09 18:32 | GOP ---
[f rep st] OPERATIVE REPORT DATE OF OPERATION: 09/09/2016 SURGEON: Jed Arora MD CABIN EQUIPMENT SUPERVISOR: DAVID Stanley. ANESTHESIA: General endotracheal per Dr. Kaplan. PREOPERATIVE DIAGNOSIS: Metastatic rectal cancer with recurrent perirectal abscess, status post abdominoperineal resection with open wound. POSTOPERATIVE DIAGNOSIS: Metastatic rectal cancer with recurrent perirectal abscess, status post abdominoperineal resection with open wound. PROCEDURE PERFORMED: Incisional debridement with wound VAC change. FINDINGS: Minimal granulation. Minimal necrosis. No gross signs of infection. Two black pieces of sponge placed and tracked to medial thigh. SPECIMENS: None. ESTIMATED BLOOD LOSS: 5 cc. DESCRIPTION OF PROCEDURE: The patient was greeted in the preoperative suite. Once again, risks, benefits, and alternatives were discussed and consent was signed. He was then brought back to the operative suite and placed on the OR table in supine position. After all anesthesia machines were on and functioning , World Health Organization time-out was performed. General endotracheal anesthesia was then induced without incident. The patient was then placed in low lithotomy position. The previous VAC was removed. The area was prepped and draped in the typical sterile fashion. I began by inspecting the area. I saw no purulent material and minimal necrotic tissue, which was debrided back to good, bleeding tissue. I did not notice any tracks into the peritoneal cavity, but then did not probe aggressively. Using 1 large black sponge and 1 smaller one, I successfully filled the area. This was covered and then tracked medially onto the patient's thigh with all skin edges appropriately protected. After this was done, and a wound VAC was holding suction appropriately, the patient was taken out of the lithotomy position, extubated, and taken to the PACU in satisfactory condition. DRAINS: Wound VAC. COUNTS: All counts were reported as correct x2. /[id number]/MODL MTDD
[2016-09-10] MEDS: morphINE PCA 30 MG/30 ML PCA IV PRN ×2 (08:34→21:09)
[2016-09-10] MEDS ORDERED: OXYCODONE/APAP 5/325 TAB PO PRN (08:45)
--- NOTE | 2016-09-10 09:12 | SOAPPROG ---
SOAP Progress Note Assessment/Plan: Assessment/Plan: 45 Y M metastatic rectal CA, s/p I&D of recurrent perirectal abscess. s/p APR. s/p OR wound vac changes x 2. Pain controlled. Afebrile. Wound clean--viewed in OR yesterday. Minimal granulation. Will attempt bedside vac change tomorrow with assistance of call center agent. Morphine, Ativan, viscous lidocaine ordered for the am prior to change. Will make NPO p midnight to reserve ability to go to OR if bedside vac change not tolerated. D/w case management. Will want to make arrangements for home wound vac and nursing. S: Pain controlled. O: gen: alert, nad, flat affect continues but a little more talkative today. heent: mmm, no jaundice pulm: ctab cor: rrr abd: soft, +ostomy gen: vac to suction 09/10/16 09:09 Objective: Vital Signs Temp Pulse Resp BP Pulse Ox 36.6 C 79 18 105/62 94 09/10/16 08:00 09/10/16 08:00 09/10/16 08:00 09/10/16 08:00 09/10/16 08:00 Laboratory Results 09/09/16 04:39 09/09/16 04:39 09/09/16 09/10/16 09/11/16 05:59 05:59 05:59 Intake Total 4770 2040 Output Total 4610 4530 Balance 130 -2490 PT 16.2 SEC (12.0-15.0) H 09/02/16 06:05 INR 1.30 (0.83-1.16) H 09/02/16 06:05 ICD10 Worksheet Patient Problems: Problems Problem Status Onset Perirectal abscess Acute Rectal cancer Acute Abdominal pain Acute Acute hyperactive alcohol withdrawal delirium Acute Alcohol dependence Acute Alcohol withdrawal Acute Colorectal cancer Acute Colorectal cancer, stage IV Acute Hematochezia Acute
[2016-09-10] MEDS: D5W 1/2 NS W/ 20 KCl/L 1,000 ML IV SCH ×2 (09:30→23:10)
[2016-09-10] MEDS: PANTOPRAZOLE SODIUM 40 MG TAB PO SCH (09:44)
[2016-09-10] MEDS: TAMSULOSIN HCL 0.4 MG CAP PO SCH (09:44)
[2016-09-10] MEDS: GABAPENTIN 300 MG CAP PO SCH ×3 (09:44→21:09)
[2016-09-10] MEDS: DOCUSATE SODIUM 100 MG CAP PO SCH (09:44)
[2016-09-10] MEDS: morphINE SR 30 MG TAB PO SCH ×3 (09:44→21:09)
[2016-09-10] MEDS: ERTAPENEM 1 GM in NS 100 ML IV SCH (09:54)
[2016-09-11] MEDS ORDERED: LORazepam 2 MG/ML INJ IVP ONE (09:00)
[2016-09-11] MEDS ORDERED: LIDOCAINE HCL 4% TOPICAL SOLN 50ML MM ONE (09:00)
[2016-09-11] MEDS: TAMSULOSIN HCL 0.4 MG CAP PO SCH (09:18)
[2016-09-11] MEDS: GABAPENTIN 300 MG CAP PO SCH ×3 (09:19→21:34)
[2016-09-11] MEDS: morphINE SR 30 MG TAB PO SCH (09:19)
[2016-09-11] MEDS: ERTAPENEM 1 GM in NS 100 ML IV SCH (09:20)
[2016-09-11] MEDS: morphINE PCA 30 MG/30 ML PCA IV PRN (10:24)
[2016-09-11] MEDS: DOCUSATE SODIUM 100 MG CAP PO SCH (10:31)
[2016-09-11] MEDS: PANTOPRAZOLE SODIUM 40 MG TAB PO SCH (10:31)
--- NOTE | 2016-09-11 10:46 | SOAPPROG ---
SOAP Progress Note Assessment/Plan: Assessment/Plan: 45 Y M metastatic rectal CA, s/p I&D of recurrent perirectal abscess. s/p APR. s/p OR wound vac changes x 2. Tolerated bedside wound vac change today very well. Wound looking good. Case management arranging for outpatient wound vac and home nursing. Pharmacy assisting in adjusting pain med and wean from [employer] SUPERVISOR. Dispo: possibly home later today or more likely in am with home nursing and wound vac. S: Pain controlled. O: gen: alert, nad heent: mmm, no jaundice pulm: ctab cor: rrr abd: soft, +ostomy, inc cdi gen: wound with early granulation, clean, no odor, no purulence, surrounding skin soft 09/11/16 10:42 Objective: Vital Signs Temp Pulse Resp BP Pulse Ox 36.6 C 81 16 104/71 98 09/11/16 10:00 09/11/16 10:00 09/11/16 10:00 09/11/16 10:00 09/11/16 10:00 Laboratory Results 09/09/16 04:39 09/09/16 04:39 09/10/16 09/11/16 09/12/16 05:59 05:59 05:59 Intake Total 2040 2439.5 160.7 Output Total 4530 1138 770 Balance -2490 1301.5 -609.3 PT 16.2 SEC (12.0-15.0) H 09/02/16 06:05 INR 1.30 (0.83-1.16) H 09/02/16 06:05 ICD10 Worksheet Patient Problems: Problems Problem Status Onset Perirectal abscess Acute Rectal cancer Acute Abdominal pain Acute Acute hyperactive alcohol withdrawal delirium Acute Alcohol dependence Acute Alcohol withdrawal Acute Colorectal cancer Acute Colorectal cancer, stage IV Acute Hematochezia Acute
--- NOTE | 2016-09-11 11:21 | WOCRNPDOC ---
WOCRN Advanced Assessment Note - Skin Integrity Problem, Advanced Assess Right Buttock Abscess Dressing Type: Black Vac Foam (x2), Wound Vac Dressing Description: Clean/Dry, Intact Exudate Amount: Moderate Exudate Characteristic(s): Bloody Integumentary Issue Intervention: Dressing Changed Gabriela Wound Swelling: None Wound Bed Color: Red, Yellow Wound Bed Constitution: Smooth Tissue, Tunneling (x1 cm) Site Measurement - Head-to-Toe Length X Width X Depth (cm): 6.5x6.5x9.5 Skin Integrity Problem Comment: Flushed wound bed with ns. Skin prep gabriela wound and draped over to left hip. 2 pieces of black simplace in wound bed over one layer of mepitel contact layer. Vac suction set at -125 mm Hg continous. Working without leaks. Education with patient on vac care/troubleshooting and wound healing trajectory. Akhil HERNANDEZ in room for care. Mary Murphy visualized wound as well. Patient tolerated bedside change well.
[2016-09-11] MEDS: morphINE SR 15 MG TAB PO SCH ×2 (15:38→21:34)
[2016-09-12] MEDS: morphINE PCA 30 MG/30 ML PCA IV PRN ×2 (01:10→12:33)
[2016-09-12] MEDS: D5W 1/2 NS W/ 20 KCl/L 1,000 ML IV SCH ×2 (01:10→14:52)
--- NOTE | 2016-09-12 06:22 | PDIAF ---
- Diagnosis Diagnosis: metatastic rectal CA, perirectal abscess s/p APR with open perineal wond Code Status: Full Code - Medication Management Discharge Medications: Medications to Continue on Transfer Pantoprazole Sodium [Protonix 40mg (*)] 40 mg PO DAILY 04/11/16 [Last Taken 09:00] Tamsulosin HCl [Flomax 0.4 MG (*)] 0.4 mg PO DAILY 04/11/16 [Last Taken 09:00] morphINE SR [MS Contin/Oramorph SR 30 mg (*)] 30 mg PO TID #60 tab 08/05/16 [ Last Taken 09/01/16 09:00] Docusate Sodium [Colace 100 MG (*)] 100 mg PO DAILY 08/29/16 [Last Taken 09:00] oxyCODONE IR [Oxycodone Ir (*)] 10 mg PO Q4 PRN 08/29/16 [Last Taken 09/01/16 09 :00] Child Support Officer Antibiotics: n/a Discharge Medications: Refer to the Discharge Home Medication list for PRN reason. PICC Care - Routine: N/A - Orders Services needed: Home Care, Registered Nurse Home Care Face to Face: I certify that this patient was under my care and that I had the required [id number] encounter meeting the encounter requirements on the discharge day. My findings support the fact that the patient is homebound as defined in CMS Chapter 7 Medicare Benefits Manual 30.1.1, The condition of the patient is such that there exists a normal inability to leave home and consequently, leaving home would require a considerable and taxing effort. Diet Recommendation: no restrictions on diet Diet Texture: Regular Texture Diet Ballard: Not applicable Wound Care Instructions: Skin prep gabriela wound and draped over to left hip. 2 pieces of black simplace in wound bed over one layer of mepitel contact layer. Vac suction set at -125 mm Hg continous. Change M,W,Fr Activity/Weight Bearing Restrictions: No lifting over 20 lbs Equipment: (wound vac) - Follow Up Care Current Providers and Referrals: NONE *PRIMARY CARE P,. [Primary Care Provider] - As per Instructions Mathieu Wood MD [Medical Doctor] - follow up in 1 week
--- NOTE | 2016-09-12 06:31 | PDIAF ---
- Diagnosis Diagnosis: metastatic rectal ca, perirectal abscess, s/p APR with wound vac Code Status: Full Code - Medication Management Discharge Medications: Medications to Continue on Transfer Pantoprazole Sodium [Protonix 40mg (*)] 40 mg PO DAILY 04/11/16 [Last Taken 09:00] Tamsulosin HCl [Flomax 0.4 MG (*)] 0.4 mg PO DAILY 04/11/16 [Last Taken 09:00] Docusate Sodium [Colace 100 MG (*)] 100 mg PO DAILY 08/29/16 [Last Taken 09:00] Gabapentin [Neurontin 300 MG (*)] 300 mg PO TID #0 cap 09/12/16 [Last Taken Unknown] LORazepam [Ativan] 1 mg PO Q6H #20 tablet 09/12/16 [Last Taken Unknown] morphINE SR [Ms Contin/Oramorph 15 mg (*)] 45 mg PO TID #0 tab 09/12/16 [Last Taken Unknown] Retirement Antibiotics: n/a Discharge Medications: Refer to the Discharge Home Medication list for PRN reason. PICC Care - Routine: N/A - Orders Services needed: Home Care, Registered Nurse Home Care Face to Face: I certify that this patient was under my care and that I had the required [id number] encounter meeting the encounter requirements on the discharge day. My findings support the fact that the patient is homebound as defined in CMS Chapter 7 Medicare Benefits Manual 30.1.1, The condition of the patient is such that there exists a normal inability to leave home and consequently, leaving home would require a considerable and taxing effort. Diet Recommendation: no restrictions on diet Diet Texture: Regular Texture Diet Ballard: No Wound Care Instructions: Skin prep gabriela wound and draped over to left hip. 2 pieces of black simplace in wound bed over one layer of mepitel contact layer. Vac suction set at -125 mm Hg continous. change M, W, Fr (3x's a week) Activity/Weight Bearing Restrictions: No lifting over 20 lbs - Follow Up Care Current Providers and Referrals: Mathieu Wood MD [Medical Doctor] - follow up in 1 week NONE *PRIMARY CARE P,. [Primary Care Provider] - As per Instructions
[2016-09-12] MEDS: TAMSULOSIN HCL 0.4 MG CAP PO SCH (08:23)
[2016-09-12] MEDS: PANTOPRAZOLE SODIUM 40 MG TAB PO SCH (08:23)
[2016-09-12] MEDS: morphINE SR 15 MG TAB PO SCH ×3 (08:23→21:37)
[2016-09-12] MEDS: DOCUSATE SODIUM 100 MG CAP PO SCH (08:23)
[2016-09-12] MEDS: GABAPENTIN 300 MG CAP PO SCH ×3 (08:23→21:36)
[2016-09-12] MEDS: ERTAPENEM 1 GM in NS 100 ML IV SCH (08:31)
--- NOTE | 2016-09-12 17:40 | SOAPPROG ---
[facility] Progress Note Assessment/Plan: Assessment/Plan: - 45yo M s/p completion APR, I&D of pelvic abscess for recurrent rectal Ca - Continues to have pain issues, used 28mg IV morphine just today. Will add previous PO oxycodone that he had in the past for oral breakthrough. will also ask palliative care to eval and assist, as they were beneficial in the past. - VAC change at bedside yesterday went well, will plan to cont these unless he poorly tolerates the next one - Ballard has been in, per patient has had issues with retention in the past. Will plan to keep this for now as he is minimally mobile and cannot urinate supine. Hopefully as his pain is better controlled we will be able to dc and he can stand to urinate. - Ambulate, work on appetite. Better pain control 09/12/16 17:37 Subjective: Pain issues persist, flat affect Objective: Vital Signs Temp Pulse Resp BP Pulse Ox 36.7 C 99 16 103/80 94 09/12/16 16:00 09/12/16 16:00 09/12/16 16:00 09/12/16 16:00 09/12/16 16:00 Laboratory Results 09/09/16 04:39 09/09/16 04:39 09/11/16 09/12/16 09/13/16 05:59 05:59 05:59 Intake Total 2439.5 2127.2 Output Total 1138 4060 1495 Balance 1301.5 -1932.8 -1495 PT 16.2 SEC (12.0-15.0) H 09/02/16 06:05 INR 1.30 (0.83-1.16) H 09/02/16 06:05 ICD10 Worksheet Patient Problems: Problems Problem Status Onset Perirectal abscess Acute Rectal cancer Acute Abdominal pain Acute Acute hyperactive alcohol withdrawal delirium Acute Alcohol dependence Acute Alcohol withdrawal Acute Colorectal cancer Acute Colorectal cancer, stage IV Acute Hematochezia Acute
[2016-09-13] MEDS: morphINE PCA 30 MG/30 ML PCA IV PRN ×2 (03:19→17:05)
[2016-09-13] MEDS: D5W 1/2 NS W/ 20 KCl/L 1,000 ML IV SCH ×2 (04:09→19:26)
[2016-09-13] MEDS: oxyCODONE IR 5 MG TAB PO PRN ×2 (04:19→23:52)
[2016-09-13] MEDS: TAMSULOSIN HCL 0.4 MG CAP PO SCH (09:58)
[2016-09-13] MEDS: GABAPENTIN 300 MG CAP PO SCH ×3 (09:58→20:57)
[2016-09-13] MEDS: DOCUSATE SODIUM 100 MG CAP PO SCH (09:58)
[2016-09-13] MEDS: PANTOPRAZOLE SODIUM 40 MG TAB PO SCH (09:58)
[2016-09-13] MEDS: ERTAPENEM 1 GM in NS 100 ML IV SCH (09:58)
[2016-09-13] MEDS: morphINE SR 15 MG TAB PO SCH ×3 (09:59→20:57)
[2016-09-13] MEDS: LORazepam 2 MG/ML INJ IV PRN (11:43)
--- NOTE | 2016-09-13 12:41 | WOCRNPDOC ---
WOCRN Advanced Assessment Note - Skin Integrity Problem, Advanced Assess Right Buttock Abscess Dressing Type: Black Vac Foam (2 pieces removed), Wound Vac Dressing Description: Intact Exudate Amount: Minimal Exudate Color: Red Exudate Characteristic(s): Bloody Integumentary Issue Intervention: Dressing Changed Gabriela Wound Tissue: Intact Gabriela Wound Swelling: None Wound Bed Color: Red, Yellow Wound Bed Constitution: Adhered Slough Site Odor: None Site Measurement - Head-to-Toe Length X Width X Depth (cm): 6.4cmx6.3fqm0qs Skin Integrity Problem Comment: Surgical wound w/ predominantly granulation tissue, some trace adhered slough scattered throughout. No odor or gabriela-wound erythema noted. In addition to RESIDENCE LEASING AGENT, patient was administered Ativan IV prior to dressing change; he tolerated the procedure very well. Gabriela-wound skin prepped and draped. 1 piece of black vac foam placed into wound bed, and a second piece placed over proximal aspect of wound bed and bridged over L hip. Suction initiated at 125mmHg low, continuous suction, no leaks. Vac tubing secured w/ Stat lock on patient's L thigh. Report given to mothers helperEIMLY Horn and DAVID Johnson.
--- NOTE | 2016-09-13 17:38 | SOAPPROG ---
<Mindy Reyes - Last Filed: 09/13/16 17:36> SOAP Progress Note Assessment/Plan: Assessment: 45yo M with metastatic rectal CA, s/p I&D of recurrent perirectal abscess. s/p APR. Palliative care ?assist pain management Wound vac to suction. tolerating bedside vac changes Regular diet Ambulation and IS. PT Continue ASYA drain to bulb suction Dispo: Seen today by Dr. Roberson - hopefully home soon with wound vac. S: Pain controlled. O: lying in bed, comfortable, no acute distress no increased work of breathing soft, nondistended, nontender, ostomy ASYA drain serous Wound VAC to suction. No surrounding erythema. Objective: Vital Signs Temp Pulse Resp BP Pulse Ox 36.8 C 95 16 94/65 L 91 L 09/13/16 14:00 09/13/16 14:00 09/13/16 14:00 09/13/16 14:00 09/13/16 14:00 Laboratory Results 09/09/16 04:39 09/09/16 04:39 09/12/16 09/13/16 09/14/16 05:59 05:59 05:59 Intake Total 2127.2 3521.9 Output Total 4060 4510 1090 Balance -1932.8 -988.1 -1090 PT 16.2 SEC (12.0-15.0) H 09/02/16 06:05 INR 1.30 (0.83-1.16) H 09/02/16 06:05 ICD10 Worksheet Patient Problems: Problems Problem Status Onset Perirectal abscess Acute Rectal cancer Acute Abdominal pain Acute Acute hyperactive alcohol withdrawal delirium Acute Alcohol dependence Acute Alcohol withdrawal Acute Colorectal cancer Acute Colorectal cancer, stage IV Acute Hematochezia Acute <Opal Roberson - Last Filed: 09/13/16 23:19> SOAP Progress Note Assessment/Plan: Assessment: Agree with Mindy HERNANDEZ note.[place] is resting comfortably but still using high doses 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 Tolerating wound vac changes. Wound vac to suction. Ostomy pink and healthy. CTAB, Regular rate. Plan: 09/13/16 23:17 Objective: Vital Signs Temp Pulse Resp BP Pulse Ox 37.2 C 95 16 96/63 L 91 L 09/13/16 22:00 09/13/16 22:00 09/13/16 22:00 09/13/16 22:00 09/13/16 22:00 Laboratory Results 09/09/16 04:39 09/09/16 04:39 09/12/16 09/13/16 09/14/16 05:59 05:59 05:59 Intake Total 2127.2 3521.9 1024 Output Total 4060 4510 2020 Balance -1932.8 -988.1 -996 PT 16.2 SEC (12.0-15.0) H 09/02/16 06:05 INR 1.30 (0.83-1.16) H 09/02/16 06:05
[2016-09-14] MEDS: morphINE PCA 30 MG/30 ML PCA IV PRN ×2 (05:57→18:12)
[2016-09-14] MEDS: DOCUSATE SODIUM 100 MG CAP PO SCH (09:21)
[2016-09-14] MEDS: PANTOPRAZOLE SODIUM 40 MG TAB PO SCH (09:21)
[2016-09-14] MEDS: GABAPENTIN 300 MG CAP PO SCH ×3 (09:22→22:13)
[2016-09-14] MEDS: morphINE SR 15 MG TAB PO SCH ×3 (09:22→22:13)
[2016-09-14] MEDS: TAMSULOSIN HCL 0.4 MG CAP PO SCH (09:22)
[2016-09-14] MEDS: ERTAPENEM 1 GM in NS 100 ML IV SCH (09:23)
[2016-09-14] MEDS: oxyCODONE IR 5 MG TAB PO PRN ×2 (10:11→20:08)
--- NOTE | 2016-09-14 11:21 | SOAPPROG ---
SOAP Progress Note Assessment/Plan: Assessment: more comfortable/ abd soft/ minimal drainage/ afebrile Plan:proceed with APR in am / will leave open with wound vac 09/02/16 11:10 09/05/16 20:56 HE IS DOING QUITE WELL POSTOP / AFEBRILE / 500 CC OF SEROUS DRAINAGE / HEMATOCRIT 31 / PLAN IS WOUND VAC CHANGE IN THE MORNING RISKS AND OPTIONS BEEN FULLY DISCUSSED AND HE WISHES TO PROCEED 09/14/16 11:20 AFEBRILE/ STILL BATTLING THE PAIN BUT COMFORTABLE NOW/ PLAN VAC CHANGE FRIDAY Objective: Vital Signs Temp Pulse Resp BP Pulse Ox 36.8 C 95 16 102/61 90 L 09/14/16 09:56 09/14/16 09:56 09/14/16 09:56 09/14/16 09:56 09/14/16 09:56 Laboratory Results 09/09/16 04:39 09/09/16 04:39 09/13/16 09/14/16 09/15/16 05:59 05:59 05:59 Intake Total 3521.9 1827 Output Total 4510 3700 Balance -988.1 -1873 PT 16.2 SEC (12.0-15.0) H 09/02/16 06:05 INR 1.30 (0.83-1.16) H 09/02/16 06:05 ICD10 Worksheet Patient Problems: Problems Problem Status Onset Perirectal abscess Acute Rectal cancer Acute Abdominal pain Acute Acute hyperactive alcohol withdrawal delirium Acute Alcohol dependence Acute Alcohol withdrawal Acute Colorectal cancer Acute Colorectal cancer, stage IV Acute Hematochezia Acute
[2016-09-14] MEDS: D5W 1/2 NS W/ 20 KCl/L 1,000 ML IV SCH (18:11)
[2016-09-15] MEDS: oxyCODONE IR 5 MG TAB PO PRN ×4 (05:35→20:30)
--- NOTE | 2016-09-15 08:43 | SOAPPROG ---
SOAP Progress Note Assessment/Plan: Assessment: more comfortable/ abd soft/ minimal drainage/ afebrile Plan:proceed with APR in am / will leave open with wound vac 09/02/16 11:10 09/05/16 20:56 HE IS DOING QUITE WELL POSTOP / AFEBRILE / 500 CC OF SEROUS DRAINAGE / HEMATOCRIT 31 / PLAN IS WOUND VAC CHANGE IN THE MORNING RISKS AND OPTIONS BEEN FULLY DISCUSSED AND HE WISHES TO PROCEED 09/14/16 11:20 AFEBRILE/ STILL BATTLING THE PAIN BUT COMFORTABLE NOW/ PLAN VAC CHANGE Friday09/15/16 08:41 afebrile/ still pain control issues/ wound ok/ plan: antidepressant, increase neurontin, miralax, convert to oral pain meds Objective: Vital Signs Temp Pulse Resp BP Pulse Ox 36.8 C 88 16 98/61 L 94 09/15/16 07:34 09/15/16 07:34 09/15/16 07:34 09/15/16 07:37 09/15/16 07:34 Laboratory Results 09/09/16 04:39 09/09/16 04:39 09/14/16 09/15/16 09/16/16 05:59 05:59 05:59 Intake Total 1827 2596.5 Output Total 3700 3320 Balance -1873 -723.5 PT 16.2 SEC (12.0-15.0) H 09/02/16 06:05 INR 1.30 (0.83-1.16) H 09/02/16 06:05 ICD10 Worksheet Patient Problems: Problems Problem Status Onset Perirectal abscess Acute Rectal cancer Acute Abdominal pain Acute Acute hyperactive alcohol withdrawal delirium Acute Alcohol dependence Acute Alcohol withdrawal Acute Colorectal cancer Acute Colorectal cancer, stage IV Acute Hematochezia Acute
[2016-09-15] MEDS: ERTAPENEM 1 GM in NS 100 ML IV SCH (09:40)
[2016-09-15] MEDS: DOCUSATE SODIUM 100 MG CAP PO SCH (09:43)
[2016-09-15] MEDS: PANTOPRAZOLE SODIUM 40 MG TAB PO SCH (09:43)
[2016-09-15] MEDS: TAMSULOSIN HCL 0.4 MG CAP PO SCH (09:44)
[2016-09-15] MEDS: GABAPENTIN 300 MG CAP PO SCH ×3 (09:44→21:45)
[2016-09-15] MEDS: morphINE SR 15 MG TAB PO SCH ×3 (09:48→21:45)
[2016-09-15] MEDS: POLYETHYLENE GLYCOL 3350 17 GM PKT PO SCH (09:50)
[2016-09-15] MEDS: ONDANSETRON 4 MG/2 ML VIAL IVP PRN (10:32)
[2016-09-15] MEDS: morphINE PCA 30 MG/30 ML PCA IV PRN ×2 (12:26→19:25)
[2016-09-15] MEDS: D5W 1/2 NS W/ 20 KCl/L 1,000 ML IV SCH ×2 (12:27→23:57)
[2016-09-16] MEDS: oxyCODONE IR 5 MG TAB PO PRN ×7 (03:24→23:15)
--- NOTE | 2016-09-16 09:36 | SOAPPROG ---
SOAP Progress Note Assessment/Plan: Assessment/Plan: 45 Y M metastatic rectal CA, s/p I&D of recurrent perirectal abscess. s/p APR. s/p OR wound vac changes x 2. bedside vac changes x 2. Plan for bedside wound vac change today. Has had pain control issues over the weekend. Discussed d/c from hospital--SNF vs home with home care. He has roommates that are busy but could help with groceries, etc. Outpatient wound vac arranged last week. Dispo: pending. SNF vs home some. S: Pain controlled. O: gen: alert, nad heent: mmm, no jaundice pulm: ctab cor: rrr abd: soft, +ostomy, inc cdi gen: wound vac to suction. plan to view directly later today. 09/16/16 09:33 Objective: Vital Signs Temp Pulse Resp BP Pulse Ox 36.6 C 86 18 96/59 L 91 L 09/16/16 08:15 09/16/16 08:15 09/16/16 08:15 09/16/16 08:15 09/16/16 08:15 Laboratory Results 09/09/16 04:39 09/09/16 04:39 09/15/16 09/16/16 09/17/16 05:59 05:59 05:59 Intake Total 2596.5 2571 200 Output Total 3320 2030 2595 Balance -723.5 541 -2395 PT 16.2 SEC (12.0-15.0) H 09/02/16 06:05 INR 1.30 (0.83-1.16) H 09/02/16 06:05 ICD10 Worksheet Patient Problems: Problems Problem Status Onset Perirectal abscess Acute Rectal cancer Acute Abdominal pain Acute Acute hyperactive alcohol withdrawal delirium Acute Alcohol dependence Acute Alcohol withdrawal Acute Colorectal cancer Acute Colorectal cancer, stage IV Acute Hematochezia Acute
[2016-09-16] MEDS ORDERED: LIDOCAINE HCL 4% TOPICAL SOLN 50ML MM ONE (09:40)
[2016-09-16] MEDS: DOCUSATE SODIUM 100 MG CAP PO SCH (09:44)
[2016-09-16] MEDS: GABAPENTIN 300 MG CAP PO SCH ×3 (09:44→21:36)
[2016-09-16] MEDS: morphINE SR 15 MG TAB PO SCH ×3 (09:45→21:37)
[2016-09-16] MEDS: TAMSULOSIN HCL 0.4 MG CAP PO SCH (09:45)
[2016-09-16] MEDS: PANTOPRAZOLE SODIUM 40 MG TAB PO SCH (09:45)
[2016-09-16] MEDS: ERTAPENEM 1 GM in NS 100 ML IV SCH (09:46)
[2016-09-16] MEDS: LORazepam 2 MG/ML INJ IV PRN (10:35)
--- NOTE | 2016-09-16 11:49 | WOCRNPDOC ---
WOCRN Advanced Assessment Note - Skin Integrity Problem, Advanced Assess Right Buttock Abscess Dressing Type: Black Vac Foam (x2), Wound Vac Dressing Description: Clean/Dry, Intact Exudate Amount: Moderate (hemostasis acheived with pressure) Exudate Characteristic(s): Sanguinous Integumentary Issue Intervention: Dressing Changed Pam Wound Swelling: None Wound Bed Constitution: Granulation Tissue, Smooth Tissue Site Odor: None Skin Integrity Problem Comment: Flushed wound with ns after application of 4% lidocaine to wound bed. This was applied after black foam removal. 1 piece of black foam simplace medium was placed in wound bed and this was connected via bridge to left hip. The foam was applied after applying skin prep and drape. Patient tolerated procedure well with premedication with IV morphine and Ativan. Vac working well at -125 mm Hg continous suction with no leaks. Akhil HERNANDEZ in room for care. Next vac change 09/18. Left Foot Skin Integrity Problem Comment: Left lateral malleolus and left lateral foot with areas of bright red erythema that are blanching from lying in the bed with feet crossed. Discussed pressure injury etiology and prevention with patient as well as concern for breakdown on bony prominences if mobility is not increased. Patient verbalized understanding.
[2016-09-16] MEDS: POLYETHYLENE GLYCOL 3350 17 GM PKT PO SCH (13:08)
[2016-09-16] MEDS: D5W 1/2 NS W/ 20 KCl/L 1,000 ML IV SCH (13:47)
[2016-09-17] MEDS: oxyCODONE IR 5 MG TAB PO PRN ×7 (02:04→21:00)
[2016-09-17] MEDS: POLYETHYLENE GLYCOL 3350 17 GM PKT PO SCH (07:53)
[2016-09-17] MEDS: morphINE SR 15 MG TAB PO SCH ×3 (07:55→21:42)
[2016-09-17] MEDS: GABAPENTIN 300 MG CAP PO SCH ×3 (07:55→21:42)
[2016-09-17] MEDS: PANTOPRAZOLE SODIUM 40 MG TAB PO SCH (07:55)
[2016-09-17] MEDS: DOCUSATE SODIUM 100 MG CAP PO SCH (07:55)
[2016-09-17] MEDS: TAMSULOSIN HCL 0.4 MG CAP PO SCH (07:56)
[2016-09-17] MEDS ORDERED: POLYETHYLENE GLYCOL 3350 17 GM PKT PO PRN (15:47)
--- NOTE | 2016-09-17 15:47 | SOAPPROG ---
SOAP Progress Note Assessment/Plan: Assessment/Plan: 45 Y M metastatic rectal CA, s/p I&D of recurrent perirectal abscess. s/p APR. s/p OR wound vac changes x 2. bedside vac changes x 2. Doing well. Pain controlled with PO meds. Home vac arranged. Plan for shower in am, then vac change, then d/c to home. S: Pain controlled. O: gen: alert, nad heent: mmm, no jaundice pulm: ctab cor: rrr abd: soft, +ostomy, inc cdi gen: wound vac to suction. 09/17/16 15:46 Objective: Vital Signs Temp Pulse Resp BP Pulse Ox 36.8 C 92 18 106/68 93 09/17/16 10:05 09/17/16 10:05 09/17/16 10:05 09/17/16 10:05 09/17/16 10:05 Laboratory Results 09/09/16 04:39 09/09/16 04:39 09/16/16 09/17/16 09/18/16 05:59 05:59 05:59 Intake Total 2571 4260 Output Total 2472 4903 1180 Balance 541 -725 -1180 PT 16.2 SEC (12.0-15.0) H 09/02/16 06:05 INR 1.30 (0.83-1.16) H 09/02/16 06:05 ICD10 Worksheet Patient Problems: Problems Problem Status Onset Perirectal abscess Acute Rectal cancer Acute Abdominal pain Acute Acute hyperactive alcohol withdrawal delirium Acute Alcohol dependence Acute Alcohol withdrawal Acute Colorectal cancer Acute Colorectal cancer, stage IV Acute Hematochezia Acute
[2016-09-17] MEDS ORDERED: MAGNESIUM HYDROXIDE 30 ML UDCUP PO PRN (16:21)
[2016-09-18] MEDS: oxyCODONE IR 5 MG TAB PO PRN ×5 (04:30→16:20)
[2016-09-18] MEDS: GABAPENTIN 300 MG CAP PO SCH ×2 (08:25→16:19)
[2016-09-18] MEDS: morphINE SR 15 MG TAB PO SCH ×2 (08:26→16:20)
[2016-09-18] MEDS: DOCUSATE SODIUM 100 MG CAP PO SCH (08:26)
[2016-09-18] MEDS: PANTOPRAZOLE SODIUM 40 MG TAB PO SCH (08:26)
[2016-09-18] MEDS: TAMSULOSIN HCL 0.4 MG CAP PO SCH (08:26)
[2016-09-18] MEDS: POLYETHYLENE GLYCOL 3350 17 GM PKT PO SCH (08:33)
[2016-09-18 08:38] VITALS: BP 112/74; PULSE 97; RESP 16; TEMP 98; O2SAT 89
[2016-09-18] MEDS: ONDANSETRON 4 MG/2 ML VIAL IVP PRN (10:16)
--- NOTE | 2016-09-18 11:35 | GDS ---
[f rep st] DISCHARGE SUMMARY DISCHARGE DIAGNOSES: 1. Metastatic rectal cancer. 2. Recurrent perirectal abscess with rectal perforation. PROCEDURES: 1. Incision and drainage of recurrent perirectal abscess. 2. Laparoscopic abdominoperineal resection, with placement of wound VAC. 3. Wound VAC change with anesthesia. CONSULTATIONS: Lana Bingham, Wound Care. HOSPITAL COURSE: The patient is a 45-year-old male, well-known to our surgical service. He has met astatic rectal cancer with a colostomy. He had a perirectal abscess, which was drained and healing well, and he was set up for the operating room to undergo an abdominoperineal resection, when he ret urned to the ER with complaints of recurrent perirectal pain and drainage. He was found to have a r ecurrent perirectal abscess. He went to the OR and underwent incision and drainage. He was kept on antibiotics. Ultimately, as the infection cleared up, it was decided to bring him back to the oper ating room for an abdominoperineal resection. This procedure was uncomplicated and he tolerated it well. The wound was left open due to recent infection. A wound VAC was placed. The patient's postoperative course was relatively uneventful. He did require return to the operatin g room for his first wound VAC change. After this, he tolerated bedside wound VAC changes with the help of Ativan, morphine, and viscous lidocaine. His major issue was with pain control. 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 Ultimately, he was weaned off his IV medicines, and his oral pain medi cines were adjusted and increased with the help of Pharmacy. DISCHARGE INSTRUCTIONS: Patient was discharged to home in stable condition, with plans for home vamsi sing and wound VAC changes. He was given prescriptions for his increased dose of MS Contin, his new medications of Neurontin and Ativan, to be used as needed for wound VAC changes. He should follow up in the office in 1 week, or sooner if he has problems or concerns. Case Management assisted in a rranging for home wound VAC. EXAM ON DISCHARGE: GENERAL: Alert and oriented x3. No acute distress. HEENT: Normocephalic, atr aumatic. Sclerae anicteric. CHEST: Clear to auscultation bilaterally. CARDIAC: Regular rate and rhythm. ABDOMEN: Soft with well-healing laparoscopic incisions. No erythema. GENITALIA: Perine al wound granulating, surrounding tissue soft. /[id number]/MODL
--- NOTE | 2016-09-18 12:04 | WOCRNPDOC ---
WOCRN Advanced Assessment Note - Skin Integrity Problem, Advanced Assess Right Buttock Abscess Dressing Type: Black Vac Foam (x2), Wound Vac Dressing Description: Clean/Dry, Intact Exudate Amount: Moderate Exudate Characteristic(s): Sanguinous Integumentary Issue Intervention: Dressing Changed Gabriela Wound Swelling: None Wound Bed Color: Red Wound Bed Constitution: Granulation Tissue, Smooth Tissue Site Measurement - Head-to-Toe Length X Width X Depth (cm): 6.0x4.5x6.8 Skin Integrity Problem Comment: Flushed with ns. Pressure applied to acheive hemostasis after vac faom removal. Good hemostasis acheived. 7 ml of 4% liquid lidocaine applied into wound bed after black foam removal. Packed wound bed with Barbie Promogran Ag+. Skin prep applied gabriela wound and clipped extra hair. Drape applied gabriela wound and extended to left flank. One piece of simplace foam into wound bed and extended to left flank. Suction restarted at - 125 mm Hg continuous suction at - 125 mm Hg. Will switch patient to intermittent therapy (5 min rise and 2 min fall) to increase granular filling of wound bed. Vac working well with no leaks. Akhil HERNANDEZ assisted with care.
[2016-09-18 14:23] LABS: % IMMATURE GRANULYOCYTES 0.4 % (0.0-1.1); ABSOLUTE IMMATURE GRANULOCYTES 0.02 10^3/uL (0.00-0.10); ADD DIFF? NO; ADD MORPH? NO; ADD SCAN? NO; ATYPICAL LYMPHOCYTE FLAG 0 (0-99); FRAGMENT RBC FLAG 0 (0-99); HEMATOCRIT 27.2 % (40.0-51.0); HEMOGLOBIN 8.7 g/dL (13.7-17.5); LEFT SHIFT FLG 0 (0-99); LIPEMIA HEMOLYSIS FLAG 80 (0-99); MEAN CELL HEMOGLOBIN 25.6 pg (27.9-34.1); MEAN PLATELET VOLUME 10.8 fL (8.7-11.7); PLATELET CLUMPS FLAG 10 (0-99); PLATELET COUNT 138 10^3/uL (150-400); RED CELL DISTRIBUTION WIDTH 14.8 % (11.5-15.2)
[2016-09-18 14:44] LABS: ALANINE AMINOTRANSFERASE 49 IU/L (21-72); ALBUMIN 2.5 g/dL (3.5-5.0); ALKALINE PHOSPHATASE 344 IU/L (38-126); ANION GAP 8 mEq/L (8-16); ASPARTATE AMINOTRANSFERASE 74 IU/L (17-59); BILIRUBIN,TOTAL 1.2 mg/dL (0.1-1.4); CALCIUM 8.2 mg/dL (8.5-10.4); CARBON DIOXIDE 29 mEq/l (22-31); CHLORIDE 99 mEq/L (97-110); CREATININE 0.5 mg/dL (0.7-1.3); GLOMERULAR FILTRATION RATE > 60; GLUCOSE 103 mg/dL (70-100); POTASSIUM 3.8 mEq/L (3.5-5.2); SODIUM 136 mEq/L (134-144); TOTAL PROTEIN 5.6 g/dL (6.3-8.2)
== END 2016-09-18 16:55 | disposition home health service (06) | DRG 330 ==
LOC: F1N 12:18
PROVIDERS: ADMIT Surgery; ATTEND Surgery
PROC: 0D9P00Z Drainage of Rectum with Drainage Device, Open Approach (ICD-10-PCS; principal; 2016-09-01 15:07)
PROC: 0WBH4ZZ Excision of Retroperitoneum, Percutaneous Endoscopic Approach (ICD-10-PCS; 2016-09-03)
PROC: 0DTQ0ZZ Resection of Anus, Open Approach (ICD-10-PCS; 2016-09-03)
PROC: 30233N1 Transfusion of Nonautologous Red Blood Cells into Peripheral Vein, Percutaneous Approach (ICD-10-PCS; 2016-09-06)
PROC: 0D9P0ZZ Drainage of Rectum, Open Approach (ICD-10-PCS; 2016-09-09)
DX: K61.1 Rectal abscess (principal); C20 Malignant neoplasm of rectum; C80.1 Malignant (primary) neoplasm, unspecified; D62 Acute posthemorrhagic anemia; F11.20 Opioid dependence, uncomplicated; Z93.3 Colostomy status
CPT/HCPCS: 96374; J0171; J0330; J1100; J1170; J1335; J1642; J1885; J2001; J2060; J2250; J2270; J2370; J2405; J2704; J2765; J3010; P9016; Q9967

== ENCOUNTER 2016-10-25 12:56 | Observation (INO) | payer MEDICAID ==
[2016-10-25] MEDS ORDERED: ONDANSETRON 4 MG/2 ML VIAL ONE (13:31)
[2016-10-25 13:53] LABS: ABSOLUTE IMMATURE GRANULOCYTES 0.08 10^3/uL (0.00-0.10); ADD DIFF? NO; ADD MORPH? NO; ADD SCAN? NO; ATYPICAL LYMPHOCYTE FLAG 0 (0-99); FRAGMENT RBC FLAG 40 (0-99); HEMATOCRIT 27.8 % (40.0-51.0); LEFT SHIFT FLG 0 (0-99); LIPEMIA HEMOLYSIS FLAG 80 (0-99); MEAN CELL HEMOGLOBIN 23.4 pg (27.9-34.1); MEAN CELL HEMOGLOBIN CONCENTR. 32.4 g/dL (32.4-36.7); MEAN CELL VOLUME 72.4 fL (81.5-99.8); MEAN PLATELET VOLUME 10.4 fL (8.7-11.7); PLATELET CLUMPS FLAG 0 (0-99); PLATELET COUNT 301 10^3/uL (150-400); RED BLOOD CELL COUNT 3.84 10^6/uL (4.40-6.38); RED CELL DISTRIBUTION WIDTH 19.6 % (11.5-15.2)
[2016-10-25 14:02] LABS: ANION GAP 17 mEq/L (8-16); CALCIUM 7.8 mg/dL (8.5-10.4); CARBON DIOXIDE 21 mEq/l (22-31); CHLORIDE 97 mEq/L (97-110); CREATININE 0.5 mg/dL (0.7-1.3); ETHANOL SERUM 164 mg/dL (0-10); GLOMERULAR FILTRATION RATE > 60; GLUCOSE 99 mg/dL (70-100); POTASSIUM 2.8 mEq/L (3.5-5.2); SALICYLATE < 1.0 mg/dL (2.0-20.0); SODIUM 135 mEq/L (134-144)
[2016-10-25] MEDS ORDERED: POTASSIUM CL 20 MEQ/15 ML UDCUP PO ONE (14:36)
[2016-10-25] MEDS ORDERED: ONDANSETRON 4 MG/2 ML VIAL IVP ONE (14:51)
--- NOTE | 2016-10-25 14:53 | PDGENHP ---
History and Physical History and Physical: HISTORY AND PHYSICAL CC: "I am ready with the for my life to end." HISTORY: The patient is brought into the ER today by some friends after he had a failed suicide attempt from last night. The patient has end-stage rectal cancer that he has been fighting for more than [address] Grider 3 days ago in clinic and it was discussed that they are basically are no more treatment options and that he is really truly terminal and nearing the end of his life this point. Last evening the patient bought a bottle of whiskey and took all of his medications including analgesics and gabapentin and drank a bottle of whiskey hoping that he would not wake up. However this morning he woke up alone over but with no other consequences. At this point the patient says that he is ready for his life and but is not wishing too hurt himself or to take his own life. He says he does not feel depressed and is feeling like he is okay with the cards that he has been dealt, in his words. He does not have any thoughts or plans for any other actions, does not have a weapon in the house, has not considered other means of hurting himself. He does not have excessive uncontrolled pain or nausea or other physical symptoms though he does have some of those symptoms. Patient's support system largely involved friends. He has a sister who lives on the [facility] who is aware of his situation. At this point he is quite debilitated by fatigue and weakness. He is able to walk half a block away from his house and turned around and walked back. He is able to get in and out of bed on off commode, feed himself get water, use the phone, bathe and dress himself and take care of other ADLs. He feels like his pain medicines are doing when he needs them to do. ROS: He does admit to some worsening edema of legs which is uncomfortable, but no sob or chest pain or palpitations. His appetite is poor but there are no other GI symptoms or abdominal discomforts. A comprehensive 10 system review revealed no other significant findings PAST MEDICAL HISTORY: Colorectal cancer, metastatic end-stage, with colostomy S/p hepatic embolization for treatment of colon cancer tumors Alcohol abuse History of GI bleed Benign prostatic hypertrophy Peripheral neuropathy FAMILY MEDICAL HISTORY: Chronic kidney disease in his mother SOCIAL HISTORY: Lives in a townhouse here [place], with 1 roommate Some alcohol and marijuana use MEDICATIONS: The patients list has been reconciled by our clinical pharmacist in the EMR. I have reviewed the list and ordered appropriate medicines. 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, no focal weakness IV site: looks normal LABORATORY DATA: hypokalemia ASSESSMENT: -status post intentional overdose of narcotics and alcohol, without any injury or other physical consequence -not currently suicidal, but patient ready for his life to be over -end-stage untreatable rectal carcinoma -reasonably controlled pain of cancer -edema of the legs, which is moderately uncomfortable for him; this is likely largely nutritional but there could be other causes as well -Hypokalemia largely nutritional most likely PLANS: -admission observation status -hospice consultation -continue current pain medicines -potassium replacement -consider diuretic treatment once potassium is replaced -compression stockings -DNR per the patient's wishes -disposition to be determined after hospice evaluation I have reviewed the patient's case in detail with Dr. Blair Denis I have reviewed the patient's past medical records as part of this assessment, including previous hospital admission notes and laboratory data
[2016-10-25] MEDS ORDERED: DOCUSATE SODIUM 100 MG CAP PO PRN (16:32)
[2016-10-25] MEDS: morphINE SR 30 MG TAB PO SCH (18:17)
[2016-10-25] MEDS: morphINE SR 15 MG TAB PO SCH (18:18)
[2016-10-25] MEDS ORDERED: ONDANSETRON DISINTEGRATING 4 MG TAB ONE (20:17)
[2016-10-25] MEDS ORDERED: LORazepam 2 MG/ML INJ IVP PRN (21:31)
[2016-10-25] MEDS ORDERED: ACETAMINOPHEN 325 MG TAB PO PRN (21:31)
[2016-10-25] MEDS ORDERED: ZOLPIDEM TARTRATE 5 MG TAB PO PRN (21:31)
[2016-10-25] MEDS: morphINE 10 MG/0.5 ML UDSYR PO PRN (23:06)
[2016-10-25] MEDS: GABAPENTIN 100 MG CAP PO SCH (23:07)
[2016-10-25] MEDS: ONDANSETRON 4 MG/2 ML VIAL IVP PRN (23:13)
[2016-10-26] MEDS: morphINE SR 30 MG TAB PO SCH ×3 (00:53→16:33)
[2016-10-26] MEDS: morphINE SR 15 MG TAB PO SCH ×3 (00:54→16:33)
[2016-10-26 06:39] VITALS: O2SAT 90
[2016-10-26] MEDS ORDERED: POTASSIUM CL 20 MEQ TAB PO ONE (08:41)
[2016-10-26] MEDS ORDERED: PANTOPRAZOLE SODIUM 40 MG TAB PO SCH (09:00)
[2016-10-26] MEDS: GABAPENTIN 100 MG CAP PO SCH ×2 (09:42→16:33)
[2016-10-26] MEDS: ONDANSETRON 4 MG/2 ML VIAL IVP PRN (09:52)
[2016-10-26 12:32] VITALS: BP 113/72; PULSE 111; RESP 18; TEMP 99.3
[2016-10-26] MEDS: morphINE 10 MG/0.5 ML UDSYR PO PRN ×2 (13:24→16:34)
--- NOTE | 2016-10-26 16:17 | PDIAF ---
- Diagnosis Diagnosis: metastatic cancer Code Status: Do Not Resuscitate - Medication Management Discharge Medications: Medications to Continue on Transfer Docusate Sodium [Colace 100 MG (*)] 100 mg PO BID PRN 10/25/16 [Last Taken Unknown] Gabapentin [Neurontin 100 MG (*)] 300 mg PO TID 10/25/16 [Last Taken Unknown] Morphine Sulfate [Morphine Sulfate 20mg/5ml] 5 ml PO Q2-4PRN PRN 10/25/16 [Last Taken Unknown] Morphine Sulfate [Ms Contin] 15 mg PO Q8H 10/25/16 [Last Taken 10/24/16] Morphine Sulfate [Ms Contin] 60 mg PO Q8H 10/25/16 [Last Taken 10/24/16] Pantoprazole Sodium [Protonix 40mg (*)] 40 mg PO DAILY 10/25/16 [Last Taken Unknown] Discharge Medications: Refer to the Discharge Home Medication list for PRN reason. - Orders Services needed: Home Care, Registered Nurse, Master Premises Technician Home Care Face to Face: I certify that this patient was under my care and that I had the required [id number] encounter meeting the encounter requirements on the discharge day. My findings support the fact that the patient is homebound as defined in CMS Chapter 7 Medicare Benefits Manual 30.1.1, The condition of the patient is such that there exists a normal inability to leave home and consequently, leaving home would require a considerable and taxing effort. Diet Recommendation: no restrictions on diet Diet Texture: Regular Texture Diet - Follow Up Care Current Providers and Referrals: Cecil Grider MD [Primary Care Provider] -
--- NOTE | 2016-10-26 22:29 | GDS ---
[f rep st] DISCHARGE SUMMARY DISCHARGE DIAGNOSES: Include. 1. Polysubstance suicide attempt. 2. Metastatic rectal cancer. 3. Chronic pain with continuous opioid dependency. 4. Alcohol abuse. 5. Liver dysfunction, presumed secondary to alcohol and metastatic liver disease. 6. History of perirectal abscess and rectal perforation, status post I and D and wound VAC. 7. Depression. 8. History of gastrointestinal bleed. 9. Benign prostatic hyperplasia. 10. Peripheral neuropathy. HISTORY OF PRESENT ILLNESS: A 45-year-old male with a history of metastatic rectal carcinoma and li josesito disease, who presents after an intentional suicide attempt using opioids and alcohol. For detai ls of patient's initial presentation, please see the History and Physical dated 10/25/2016. CONSULTATIVE SERVICES: Includes Hospice. PROCEDURES: None. HOSPITAL COURSE BY ISSUE: 1. Suicide attempt. Patient does report wishing to end his life and intentionally driving himself to [place], getting a hotel room, and consuming large quantities of alcohol as well as his prescribed pain medications. He was retrieved by a friend and [facility]. The patient was admitted to the medical floor and evaluated by [facility] as well as Hospice. The patient is transitioning from the medical floor to the care center at [facility] for end-of-life care as well as psychiatric stabilization. 2. Metastatic rectal carcinoma. The patient has measurable pain with progressing liver dysfunction and [place] [facility] [place] Again, will be discharged to hospice care center for end-of-life support and planning. 3. Polysubstance abuse. This is an ongoing issue for this patient with progressive liver disease, thought partially due to a long-standing alcohol abuse. The patient is aware. Will certainly recei ve support services at the hospice care center. MEDICATIONS AT THE TIME OF DISPOSITION: Please reference the med rec printed on 10/26/2016. APPOINTMENTS: Patient is being transitioned directly to hospice care. Will follow outpatient with Dr. Grider as instructed. PENDING STUDIES: At the time of this dictation are none. TIME SPENT: I spent greater than 30 minutes in the planning and coordination of this discharge. /[id number]/MODL
== END 2016-10-26 17:18 | disposition hospice, home (50) ==
LOC: INTOOBSV 14:36 → F1N 17:53
PROVIDERS: ADMIT Internal Medicine; ATTEND Hospitalist
DX: T51.0X2A Toxic effect of ethanol, intentional self-harm, initial encounter (principal); T42.6X2A Poisoning by other antiepileptic and sedative-hypnotic drugs, intentional self-harm, initial encounter; T40.602A Poisoning by unspecified narcotics, intentional self-harm, initial encounter; C19 Malignant neoplasm of rectosigmoid junction; C78.7 Secondary malignant neoplasm of liver and intrahepatic bile duct; E87.6 Hypokalemia; F10.129 Alcohol abuse with intoxication, unspecified; F11.229 Opioid dependence with intoxication, unspecified; N40.0 Benign prostatic hyperplasia without lower urinary tract symptoms; G62.9 Polyneuropathy, unspecified; F32.9 Major depressive disorder, single episode, unspecified; Z66 Do not resuscitate; Y90.9 Presence of alcohol in blood, level not specified
CPT/HCPCS: G0378 ×2; G0480; J2060; J2405